=== PATIENT | male | born 1945 | race Caucasian/White ===

== ENCOUNTER 2020-11-11 11:53 | Inpatient (IN) | payer OTHER ==
--- OUTSIDE RECORDS SUMMARY | 2020-11-11 11:57 | XMS REPORT | Continuity of Care Document ---
:1945 Author Organization [facility] t Address [address] [place] [address] Care Team Providers Name Role Phone Latosha MEDRANO Attending Clinician Doctor Unassigned, Name Attending Clinician Unavailable 1, Lab Attending Clinician Unavailable Problems This patient has no known problems. Allergies, Adverse Reactions, Alerts This patient has no known allergies or adverse reactions. Medications This patient has no known medications. Procedures This patient has no known procedures. Encounters Start End Encounter Admission Attending Care Care Encounter Source Date/Time Date/Time Type Type Clinicians Facility Department ID 2019-09-05 2019-09-05 [facility] [id number] 08:41:00 23:59:00 Encounter Jorge Quintero [id number] [place] [id number] [place] [id number] 2019-09-05 2019-09-05 Orders Doctor TRUJILLO [id number] 00:00:00 00:00:00 Only UnassignedRUDDY [id number] [place] [facility] [id number] 2019-05-02 2019-05-02 Care Attendant 1, Adc Lab [facility] [id number] 10:09:47 10:24:47 Visit Ingrid [id number] [place] [id number] [place] [id number] Results This patient has no known results.
--- NOTE | 2020-11-11 13:49 | RAD REPORT ---
EXAM DESCRIPTION: RAD - Chest Single View - 11/11/2020 1:40 pm CLINICAL HISTORY: COPD, lower extremity swelling COMPARISON: None TECHNIQUE: AP portable chest image was obtained 11/11/2020 1:40 pm . FINDINGS: No dense consolidation seen. Baseline examination shows shallow inspiration with granuloma tous type calcifications seen. Interstitial markings are prominent. Heart and vasculature are normal. No measurable pleural effusion and no pneumothorax. No acute bony abnormality seen. No acute aortic findings suspected. IMPRESSION: Baseline examination shows mildly prominent interstitial pattern. Minimal interstitial edema or infiltrate is possible. No significant failure or volume overload.
[2020-11-11 13:58] LABS: Basophils % 0.4 % (0-1.3); Hematocrit 18.7 % (39.6-49.0); Lymphocytes % 67.5 % (15.3-44.8); MPV 8.9 fL (7.6-11.3); RBC Red Blood Cell Count 1.53 M/uL (4.33-5.43)
[2020-11-11 14:13] LABS: Protime INR 1.01
[2020-11-11 14:15] LABS: ALT/SGPT 22 U/L (12-78); AST/SGOT 15 U/L (15-37); Albumin 3.9 g/dL (3.4-5.0); Alkaline Phosphatase 125 U/L (45-117); BUN Blood Urea Nitrogen 14 mg/dL (7-18); Bicarbonate 28 mmol/L (21-32); Bilirubin Direct 0.2 mg/dL (0-0.2); Bilirubin Total 0.6 mg/dL (0.2-1.0); Glucose Level 100 mg/dL (74-106); Magnesium 2.1 mg/dL (1.8-2.4); NT PRO-BNP 425 pg/mL (<450); Protein, Total 7.5 g/dL (6.4-8.2); Sodium Level 141 mmol/L (136-145); Troponin (Emerg Dept Use Only) < 0.02 ng/mL (0.0-0.045)
[2020-11-11 14:27] LABS: Urine Blood Negative (Negative); Urine Glucose Negative (Negative); Urine Protein Negative (Negative)
[2020-11-11 14:32] LABS: Anisocytosis 3+; Blood Morphology Comment NOTED (NOT SEEN); Macrocytosis 3+; Platelet Estimate DECR
[2020-11-11 15:04] LABS: RBC Red Blood Cell Count 1.55 M/uL (4.33-5.43)
--- NOTE | 2020-11-11 15:56 | RAD REPORT ---
EXAM DESCRIPTION: CT - Abdomen Pelvis W Contrast - 11/11/2020 3:21 pm CLINICAL HISTORY: Anemia COMPARISON: No comparisons TECHNIQUE: Biphasic, helical CT imaging of the abdomen and pelvis was performed following 100 ml non -ionic IV contrast. No oral contrast administered. All CT scans are performed using dose optimization technique as appropriate and may include automated exposure control or mA/KV adjustment according to patient size. FINDINGS: Numerous bulla and bleb noted in the lower lung pacheco with fibrotic stranding. Calcified pleural plaquing change noted. No acute lung parenchymal infiltrate or mass. Atelectasis changes are present at the left base. No definitive infiltrates seen. No cardiomegaly or pericardial effusion. Gallbladder is absent. No biliary tree dilatation. Spleen and pancreas show no suspicious findings. L iver size is normal. In segment V right lobe of the liver (series 501, image 22/105) there is a 15 mi llimeter low-density focus with poorly demarcated margins. This area is minimally discernible on arianna rial phase imaging no other focal liver lesions are identifiable. This is nonspecific. An atypical he mangioma is possible. There are no prior studies that can be used for comparison. A more aggressive l iver lesion cannot be excluded. Symmetric renal function is seen with no hydronephrosis or suspicious renal mass. No pyelonephritis o r acute parenchymal process. Small cyst is present lower pole right kidney. No urinary bladder abnorm ality. No adrenal abnormalities. No dilated bowel loops or bowel wall thickening. Moderate-size hiatal hernia is present with approxim ately 20% of the stomach intrathoracic. Moderate stool volume seen in the colon without an acute colo n process identified. Left-sided diverticulosis is present. Appendix is unremarkable. A few mildly pr ominent small bowel loops are present. No free air, free fluid or inflammatory stranding. No mass or bulky lymphadenopathy. A very minimal fat only umbilical hernia seen of no acute significance. No suspicious bony findings. Disc and bony degenerative changes are present. No pathologic bone proce ss. No femoral or iliac vein thrombus identifiable. IMPRESSION: A few mildly prominent small bowel loops are present left mid abdomen probably still in normal range. Moderate stool volume seen throughout the colon. No emergent abdominal or pelvic findin g. Patient does have a 15 millimeter ill-defined low-density area in the right lobe liver. Atypical víctor ngioma is possible. A more aggressive liver lesion is possible. No evidence for a primary malignancy in this study and no history of prior malignancy. Follow-up outpatient liver ultrasound could be performed to try to further characterize this finding.
[2020-11-11 16:02] LABS: Ferritin 478.8 ng/mL (26-388); Transferrin 285 mg/dL (200-360)
[2020-11-11 16:03] LABS: Folic Acid, (Folate) > 20.0 ng/mL (3.1-17.5)
--- NOTE | 2020-11-11 16:19 | ER ---
Nurse's Notes [facility] Name: Devendra Fair Age: 75 yrs Sex: Male : 1945 Arrival Date: 11/11/2020 Time: 11:54 Bed 17 Private MD: Diagnosis: Aplastic anemia, unspecified Presentation: 11/11 12:34 Chief complaint: Patient states: swelling to bilateral lower extremities and shortness ss of breath for the past few weeks. Denies cough/ fever. Coronavirus screen: Client denies travel out of the [place] in the last 14 days. Ebola Screen: Patient denies exposure to infectious person. Patient denies travel to an Ebola-affected area in the 21 days before illness onset. Initial Sepsis Screen: Does the patient meet any 2 criteria? No. Patient's initial sepsis screen is negative. Does the patient have a suspected source of infection? No. Patient's initial sepsis screen is negative. Risk Assessment: Do you want to hurt yourself or someone else? Patient reports no desire to harm self or others. Onset of symptoms is unknown. 12:34 Method Of Arrival: Ambulatory ss 12:34 Acuity: NANCY 3 ss Historical: - Allergies: 12:37 No Known Allergies; ss - Home Meds: 15:01 gabapentin 400 mg oral cap [Active]; baclofen 10 mg Oral tab [Active]; lisinopril 2.5 vg1 mg Oral tab [Active]; hydrochlorothiazide 25 mg Oral tab [Active]; omeprazole 20 mg Oral TbEC [Active]; simvastatin 40 mg Oral tab [Active]; finasteride 5 mg oral tab [Active]; aspirin 81 mg Oral chew [Active]; folic acid 1 mg Oral tab [Active]; cholecalciferol (vitamin D3) oral oral [Active]; cyanocobalamin (vitamin B-12) oral oral [Active]; - PMHx: 12:37 Hypertension; High Cholesterol; Chronic pain; Enlarged prostate; GERD; ss - PSHx: 12:37 TURP; Hernia repair; back sx; Cholecystectomy; ss - Immunization history:: Adult Immunizations up to date. - Social history:: Smoking status: Patient reports the use of cigarette tobacco products, smokes one pack cigarettes per day. Screenin:07 Abuse screen: Denies threats or abuse. Nutritional screening: No deficits noted. vg1 Tuberculosis screening: No symptoms or risk factors identified. Fall Risk No fall in past 12 months (0 pts). No secondary diagnosis (0 pts). IV access (20 points). Ambulatory Aid- None/Bed Rest/Nurse Assist (0 pts). Gait- Normal/Bed Rest/Wheelchair (0 pts) Mental Status- Oriented to own ability (0 pts). Total Sweeney Fall Scale indicates No Risk (0-24 pts). Assessment: 13:03 General: Appears in no apparent distress. comfortable, Behavior is calm, cooperative. vg1 Pain: Complains of pain in lower back, ROSHAN hips, ROSHAN legs Pain currently is 8 out of 10 on a pain scale. Neuro: Level of Consciousness is awake, alert, obeys commands, Oriented to person, place, time, situation. Cardiovascular: Patient's skin is warm and dry. Respiratory: Airway is patent Respiratory effort is even, unlabored, Respiratory pattern is regular, symmetrical, Breath sounds are clear bilaterally. GI: No signs and/or symptoms were reported involving the gastrointestinal system. : No signs and/or symptoms were reported regarding the genitourinary system. EENT: No signs and/or symptoms were reported regarding the EENT system. Derm: Skin is intact, Skin is pink, warm \T\ dry. Musculoskeletal: Swelling ROSHAN lower extremities. 14:28 Reassessment: Patient appears in no apparent distress at this time. No changes from vg1 previously documented assessment. Patient and/or family updated on plan of care and expected duration. Pain level reassessed. Patient is alert, oriented x 3, equal unlabored respirations, skin warm/dry/pink. 15:14 Reassessment: Patient appears in no apparent distress at this time. Patient and/or vg1 family updated on plan of care and expected duration. Pain level reassessed. Patient is alert, oriented x 3, equal unlabored respirations, skin warm/dry/pink. 15:43 Reassessment: Blood transfusion consent form signed by patient. vg1 19:47 Cardiovascular: Rhythm is sinus rhythm. mg2 Vital Signs: 12:34 BP 144 / 59; Pulse 68; Resp 18; Temp 97.8(TE); Pulse Ox 98% on R/A; Weight 92.99 kg; ss Height 6 ft. 2 in. (187.96 cm); Pain 0/10; 13:07 BP 134 / 65; Pulse 65; Resp 16; Pulse Ox 97% on R/A; vg1 14:28 BP 153 / 66; Pulse 60; Resp 14; Pulse Ox 100% ; vg1 15:00 BP 142 / 67; Pulse 65; Resp 14; Pulse Ox 100% on R/A; vg1 17:00 BP 140 / 63; Pulse 68; Resp 16; Temp 98.0; Pulse Ox 100% on R/A; mg2 18:00 BP 133 / 64; Pulse 66; Resp 16; Temp 98.3; Pulse Ox 100% on R/A; mg2 19:37 BP 135 / 61; Pulse 63; Resp 14; Pulse Ox 98% on R/A; mg2 12:34 Body Mass Index 26.32 (92.99 kg, 187.96 cm) ss ED Course: 11:54 Patient arrived in ED. am2 12:35 Triage completed. ss 12:37 Arm band placed on right wrist. ss 12:40 Erin De Luna, MARIAN is Primary Nurse. vg1 13:05 Drew Bender PA is PHCP. jr8 13:05 Zackery Longoria MD is Attending Physician. jr8 13:07 Patient has correct armband on for positive identification. Bed in low position. Call vg1 light in reach. Side rails up X 1. 13:27 EKG done, by ED staff, reviewed by Drew MCELROY. vg1 13:40 XRAY Chest (1 view) In Process Unspecified. EDMS 14:09 Initial lab(s) drawn, by me, sent to lab. Inserted saline lock: 20 gauge in right jp3 wrist, using aseptic technique. Blood collected. 14:27 Urine collected: clean catch specimen, clear. vg1 14:36 Initial lab(s) drawn, by me, sent to lab. vg1 15:[address] via stretcher. vg1 15:21 CT Abd/Pelvis - IV Contrast Only In Process Unspecified. EDMS 16:17 Prakash Smith DO is Hospitalizing Provider. jr8 19:46 No provider procedures requiring assistance completed. Patient admitted, IV remains in mg2 place. Administered Medications: No medications were administered Outcome: 16:18 Decision to Hospitalize by Provider. jr8 19:46 Admitted to Tele accompanied by tech, via stretcher, room 230, with chart, Report mg2 called to MARIAN Tovar 19:46 Condition: stable 19:46 Instructed on the need for admit. 20:19 Patient left the ED. mg2 Signatures: Dispatcher [employer] Candi Sanchez RN RN ss Drew Bender PA PA jr8 Nilam Almeida am2 Santiago Carroll RN RN mg2 Bashir Ortega jp3 Erin De Luna RN RN vg1
--- NOTE | 2020-11-11 16:19 | EDPHYS ---
Physician Documentation [facility] Name: Devendra Fair Age: 75 yrs Sex: Male : 1945 Arrival Date: 11/11/2020 Time: 11:54 Bed 17 Private MD: ED Physician Zackery Longoria HPI: 11/11 13:16 This 75 yrs old Male presents to ER via Ambulatory with complaints of Leg jr8 Swelling, Shortness Of Breath. 13:16 Onset: The symptoms/episode began/occurred 2 week(s) ago. Patient presents for BLE jr8 swelling x 2 weeks. He denies CP, or increased SOB, or any new onset pain. He reports COPD HX with 1 PPD smoking but denies O2 use at home. . Historical: - Allergies: 12:37 No Known Allergies; ss - Home Meds: 15:01 gabapentin 400 mg oral cap [Active]; baclofen 10 mg Oral tab [Active]; lisinopril 2.5 vg1 mg Oral tab [Active]; hydrochlorothiazide 25 mg Oral tab [Active]; omeprazole 20 mg Oral TbEC [Active]; simvastatin 40 mg Oral tab [Active]; finasteride 5 mg oral tab [Active]; aspirin 81 mg Oral chew [Active]; folic acid 1 mg Oral tab [Active]; cholecalciferol (vitamin D3) oral oral [Active]; cyanocobalamin (vitamin B-12) oral oral [Active]; - PMHx: 12:37 Hypertension; High Cholesterol; Chronic pain; Enlarged prostate; GERD; ss - PSHx: 12:37 TURP; Hernia repair; back sx; Cholecystectomy; ss - Immunization history:: Adult Immunizations up to date. - Social history:: Smoking status: Patient reports the use of cigarette tobacco products, smokes one pack cigarettes per day. ROS: 13:19 Cardiovascular: Negative for chest pain, palpitations, and edema, Abdomen/GI: Negative jr8 for abdominal pain, nausea, vomiting, diarrhea, and constipation, Neuro: Negative for headache, weakness, numbness, tingling, and seizure. 13:19 MS/extremity: Positive for swelling, of the right leg and left leg. 13:19 Skin: Negative for He reports skin color as normal for him. 13:20 Respiratory: Positive for shortness of breath, on exertion. reports normal for him, no jr8 new changes. 13:20 All other systems are negative. Exam: 13:21 Chest/axilla: Normal chest wall appearance and motion. Nontender with no deformity. jr8 No lesions are appreciated. Abdomen/GI: Soft, non-tender, with normal bowel sounds. No distension or tympany. No guarding or rebound. No evidence of tenderness throughout. Back: No spinal tenderness. No costovertebral tenderness. Full range of motion. Neuro: Awake and alert, GCS 15, oriented to person, place, time, and situation. Cranial nerves II-XII grossly intact. Motor strength 5/5 in all extremities. Sensory grossly intact. Cerebellar exam normal. Normal gait. 13:21 MS/ Extremity: Pulses equal, no cyanosis. Neurovascular intact. Full, normal range of motion. 13:21 Eyes: Periorbital structures: minor edema present, Sclera: icterus, is present, minor. 13:21 Cardiovascular: Rate: normal, actual rate is 65 bpm, Heart sounds: normal, Edema: 3+ edema to level of left lower thigh, left knee, left midcalf, left ankle, left foot, right lower thigh, right knee, right midcalf, right ankle and right foot, pedal edema, that is moderate, ankle edema, that is moderate. 13:21 Respiratory: the patient does not display signs of respiratory distress, Respirations: normal, Breath sounds: decreased breath sounds, that are mild, are scattered. 13:21 Abdomen/GI: Inspection: abdomen appears normal, Bowel sounds: normal, Palpation: abdomen is soft and non-tender, Liver: no appreciated palpable abnormalities. Vital Signs: 12:34 BP 144 / 59; Pulse 68; Resp 18; Temp 97.8(TE); Pulse Ox 98% on R/A; Weight 92.99 kg; ss Height 6 ft. 2 in. (187.96 cm); Pain 0/10; 13:07 BP 134 / 65; Pulse 65; Resp 16; Pulse Ox 97% on R/A; vg1 14:28 BP 153 / 66; Pulse 60; Resp 14; Pulse Ox 100% ; vg1 15:00 BP 142 / 67; Pulse 65; Resp 14; Pulse Ox 100% on R/A; vg1 17:00 BP 140 / 63; Pulse 68; Resp 16; Temp 98.0; Pulse Ox 100% on R/A; mg2 18:00 BP 133 / 64; Pulse 66; Resp 16; Temp 98.3; Pulse Ox 100% on R/A; mg2 19:37 BP 135 / 61; Pulse 63; Resp 14; Pulse Ox 98% on R/A; mg2 12:34 Body Mass Index 26.32 (92.99 kg, 187.96 cm) ss MDM: 13:05 Patient medically screened. [facility] 16:16 Data reviewed: vital signs, nurses notes, lab test result(s), EKG, radiologic studies, [facility] plain films. Data interpreted: Pulse oximetry: on room air is 100 %. Interpretation: normal. Counseling: I had a detailed discussion with the patient and/or guardian regarding: the historical points, exam findings, and any diagnostic results supporting the discharge/admit diagnosis, lab results, radiology results, the need for further work-up and treatment in the hospital. ED course: Consulted Dr. Napier on hematologic case. 11/11 13:15 Order name: Basic Metabolic Panel; Complete Time: 14:18 [facility] 11/11 13:15 Order name: CBC with Diff; Complete Time: 14:39 [facility] 11/11 13:15 Order name: LFT's; Complete Time: 14:18 [facility] 11/11 13:16 Order name: Magnesium; Complete Time: 14:18 [facility] 11/11 13:16 Order name: NT PRO-BNP; Complete Time: 14:18 [facility] 11/11 13:16 Order name: PT-INR; Complete Time: 14:18 [facility] 11/11 13:16 Order name: Troponin (emerg Dept Use Only); Complete Time: 14:18 [facility] 11/11 14:14 Order name: Manual Differential; Complete Time: 14:39 [facility] 11/11 14:27 Order name: Urine Dipstick-Ancillary [facility] 11/11 14:29 Order name: PRBC [facility] 11/11 14:29 Order name: Packed RBC Leukored [facility] 11/11 14:30 Order name: ABO/RH typing [facility] 11/11 14:30 Order name: Antibody Screen [facility] 11/11 13:16 Order name: XRAY Chest (1 view); Complete Time: 13:51 [facility] 11/11 14:40 Order name: Iron Level; Complete Time: 16:10 [facility] 11/11 14:40 Order name: TIBC; Complete Time: 16:10 [facility] 11/11 14:40 Order name: B12; Complete Time: 16:10 [facility] 11/11 14:40 Order name: Folic Acid,Serum (folate); Complete Time: 16:10 [facility] 11/11 14:44 Order name: LDH [facility] 11/11 14:44 Order name: Lactic Dehydrogenase; Complete Time: 15:45 [facility] 11/11 14:45 Order name: Retic Count; Complete Time: 15:09 [facility] 11/11 14:53 Order name: Add On-Lab bd 11/11 14:58 Order name: Direct Antiglobulin Test [facility] 11/11 15:03 Order name: CT Abd/Pelvis - IV Contrast Only; Complete Time: 16:10 [facility] 11/11 15:32 Order name: ABO/RH no charge; Complete Time: 15:34 [facility] 11/11 17:17 Order name: SARS-COV-2 RT PCR; Complete Time: 17:19 [facility] 11/11 17:56 Order name: C-Reactive Protein; Complete Time: 17:59 [facility] 11/11 13:16 Order name: EKG; Complete Time: 13:16 [facility] 11/11 13:16 Order name: Cardiac monitoring; Complete Time: 13:26 [facility] 11/11 13:16 Order name: EKG - Nurse/Tech; Complete Time: 13:26 [facility] 11/11 13:16 Order name: IV Saline Lock; Complete Time: 13:50 [facility] 11/11 13:16 Order name: Labs collected and sent; Complete Time: 13:50 [facility] 11/11 13:16 Order name: O2 Per Protocol; Complete Time: 13:18 [facility] 11/11 13:16 Order name: O2 Sat Monitoring; Complete Time: 13:18 [facility] 11/11 13:26 Order name: Urine Dipstick-Ancillary (obtain specimen); Complete Time: 13:50 [facility] Administered Medications: No medications were administered Disposition: 11/12 07:19 Co-signature as Attending Physician, Zackery Longoria MD I agree with the assessment and siddhartha plan of care. Disposition: 11/11/20 16:18 Hospitalization ordered by Prakash mSith for Observation. Preliminary diagnosis is Aplastic anemia, unspecified. - Bed requested for Telemetry/MedSurg (observation). - Status is Observation. mg2 - Condition is Stable. - Problem is new. - Symptoms are unchanged. Signatures: Dispatcher [employer] EDMS PazAmyTriceZackery Brewer MD MD cha Smirch, Shelby, RN RN Drew Warren PA PA jr8 Santiago Carroll, MARIAN RN mg2 Erin De Luna, RN RN vg1 Corrections: (The following items were deleted from the chart) 11/11 14:41 14:40 FERRITIN+C.LAB.BRZ ordered. EDMS EDMS 14:45 14:20 TYPE AND SCREEN+BB.LAB.BRZ ordered. EDMS EDMS 16:22 15:03 CORONAVIRUS+MR.LAB.BRZ ordered. EDMS EDMS 18:00 16:18 Hospitalization Ordered by Prakash Smith DO for Observation. Preliminary bd diagnosis is Aplastic anemia, unspecified. Bed requested for Telemetry/MedSurg (observation). Status is Observation. Condition is Stable. Problem is new. Symptoms are unchanged. jr8 20:19 18:00 11/11/2020 16:18 Hospitalization Ordered by Prakash Smith DO for Observation. mg2 Preliminary diagnosis is Aplastic anemia, unspecified. Bed requested for Telemetry/MedSurg (observation). Status is Observation. Condition is Stable. Problem is new. Symptoms are unchanged. bd
[2020-11-11] MEDS ORDERED: NA CHLORIDE 0.9% 250 ML ONE ×2 (16:49→22:06)
--- NOTE | 2020-11-11 16:59 | P.HP ---
Certification for Inpatient Patient admitted to: Observation With expected LOS: <2 Midnights Patient will require the following post-hospital care: None Practitioner: I am a practitioner with admitting privileges, knowledge of patient current condition, hospital course, and medical plan of care. Services: Services provided to patient in accordance with Admission requirements found in Title 42 Section 412.3 of the Code of Federal Regulations Patient History Date of Service: 11/11/20 Primary Care Provider: [facility] Reason for admission: Bilateral lower extremity edema History of Present Illness: 75-year-old male with history of hypertension, chronic pain, GERD, hyperlipidemia, and BPH. Patient presented with 2-week history of bilateral lower extremity edema. Patient also reported some jaundice. Patient has not had this type of symptoms before. He denied any significant chest pain, shortness of breath. Denied any fever, chills. No abdominal pain, nausea or vomiting noted. Patient smokes about a pack per day. Patient was seen by the [place] [facility]. He was told that he was anemic. He required vitamin B12, folic acid and vitamin D3. Patient came to the ER for further evaluation. In the ER patient was evaluated. Patient was found to be pancytopenic with white count 1.5, hemoglobin 6.2. Platelet count 86. Absolute neutrophil 0.5. Sodium 141, potassium 4.0. Glucose 100. GFR greater than 90. LDH unremarkable. LFTs unremarkable. Iron 176, TIBC 399. Transferrin 285. Percent transferrin 44% absolute neutrophil count 0.5. CT scan showed a 15 mm right lobe liver mass. Moderate stool noted. Chest x-ray unremarkable. Urinalysis unremarkable. Patient had significant edema to the lower extremities. Venous Doppler pending. Patient admitted for further evaluation and treatment. Home medications list reviewed: Yes - Past Medical/Surgical History Diabetic: No -: Hypertension -: Hyperlipidemia -: BPH -: Chronic pain -: Chronic anemia Past Surgical History: Reviewed- Non-Contributory Psychosocial/ Personal History: Patient is a - Family History Family History: Reviewed- Non-Contributory - Social History Smoking Status: Heavy Tobacco smoker (>10 cigarettes/day) Counseled patient to stop smoking for: less than 10 minutes Smoking therapy provided: Yes Patient receptive to therapy: Yes Alcohol use: No CD- Drugs: No Caffeine use: No Place of Residence: Home Review of Systems General: Weakness, As per HPI Eyes: Unremarkable Respiratory: Unremarkable Cardiovascular: Edema, As per HPI Gastrointestinal: Unremarkable Genitourinary: Unremarkable Musculoskeletal: Pedal edema, As per HPI Integumentary: Jaundice, As per HPI Neurological: Unremarkable Lymphatics: Unremarkable Physical Examination - Physical Exam General: Alert, In no apparent distress, Oriented x3, Cooperative HEENT: Atraumatic, PERRLA, Mucous membr. moist/pink, Scleral icterus Neck: Supple Respiratory: Clear to auscultation bilaterally, Normal air movement Cardiovascular: Normal pulses, Regular rate/rhythm Gastrointestinal: Normal bowel sounds, Soft and benign, Non-distended, No ascites, No tenderness, No masses, No rebound, No guarding Musculoskeletal: No tenderness, No warmth Integumentary: Tenderness/swelling (2+ pitting edema to the lower extremities bilateral) Neurological: Normal speech, Normal strength at 5/5 x4 extr, Normal tone, Normal affect - Studies Laboratory Data (last 24 hrs) 11/11/20 13:49: PT 11.6, INR 1.01 11/11/20 13:49: WBC 1.50 L*, Hgb 6.2 L*, Hct 18.7 L*, Plt Count 86 L 11/11/20 13:49: Sodium 141, Potassium 4.0, BUN 14, Creatinine 0.77, Glucose 100, Magnesium 2.1, Total Bilirubin 0.6, AST 15, ALT 22, Alkaline Phosphatase 125 H Assessment and Plan - Plan Impression: Bilateral lower extremity edema, jaundice with pancytopenia etiology unknown 15 mm right lobe liver mass etiology unknown Hypertension Hyperlipidemia BPH GERD Tobacco abuse Chronic pain Plan: Bilateral lower extremity edema, jaundice with pancytopenia etiology unknown: Patient will be admitted for further evaluation and treatment. Patient will be given 2 units of packed red blood cells. Maintain hemoglobin above 7.0. Recheck CBC and monitor closely. Will obtain venous Doppler of the lower extremity to rule out DVT. Due to his liver mass we will check a CT scan of the chest to further evaluate especially in light of his tobacco abuse. Echocardiogram will be performed to rule out CHF. Will discuss with hematology about etiology of his pancytopenia. No evidence of GI bleed at this time. Patient will require GI work-up to include EGD and colonoscopy as an outpatient. Patient will likely require hematology evaluation including bone marrow biopsy. We will send peripheral smear. Provide DVT prophylaxis. Anticipate work-up to be completed tomorrow. Possible discharge as early as tomorrow. 15 mm right lobe liver mass etiology unknown: We will check liver ultrasound. We will send for hepatitis panel. Hypertension: Restart lisinopril. Hold hydrochlorothiazide. Will monitor closely and adjust medication. Hyperlipidemia: Restart Zocor. BPH: Restart finasteride. GERD: Restart Protonix. Tobacco abuse: We will provide nicotine patch. Cessation education provided. Chronic pain: We will provide medication for pain. Hold gabapentin due to side effect of edema. Hold baclofen. Discharge Plan: Home Plan to discharge in: 48 Hours - Advance Directives Does patient have a Living Will: No Does patient have a Durable POA for Healthcare: No - Code Status/Comfort Care Code Status Assessed: Yes (Full code) Time Spent Managing Pts Care (In Minutes): 55
[2020-11-11] MEDS ORDERED: DIPHENHYDRAMINE 50 MG/ML VIAL ONE (17:02)
[2020-11-11] MEDS ORDERED: ACETAMINOPHEN 325 MG TABLET ONE (17:02)
[2020-11-11] MEDS ORDERED: ACETAMINOPHEN 500 MG TAB PO PRN (19:56)
[2020-11-11] MEDS: FUROSEMIDE 20 MG/ 2ML VIAL IV SCH (19:56)
[2020-11-11] MEDS ORDERED: ONDANSETRON 4 MG/2 ML VIAL IV PRN (19:56)
[2020-11-11] MEDS: HEPARIN 5000 UNIT/ML 1 ML VIAL SQ SCH (21:00)
[2020-11-11] MEDS ORDERED: ATORVASTATIN 20 MG TAB PO SCH (21:00)
[2020-11-11] MEDS ORDERED: FINASTERIDE 5 MG TAB PO SCH (21:00)
--- NOTE | 2020-11-11 21:19 | RAD REPORT ---
EXAM DESCRIPTION: CT - Thorax Wo Con - 11/11/2020 8:36 pm CLINICAL HISTORY: Tobacco abuse, Pancytopenia, Liver mass COMPARISON: Abdomen Pelvis W Contrast dated 11/11/2020 TECHNIQUE: Axial 5 mm thick images of the chest were obtained without IV contrast. All CT scans are performed using dose optimization technique as appropriate and may include automated exposure control or mA/KV adjustment according to patient size. FINDINGS: Numerous variably sized bullae and blebs noted along with subpleural scarring changes. Pat ient has calcified and noncalcified pleural plaquing change. This is slightly more prominent at the l eft base diaphragmatic pleura. No one area of pleural changes clearly masslike to suspect mesotheliom a or aggressive pleural process. No suspicious mass lesion within the lung parenchyma. There is no ac courtney infiltrates seen. No pneumothorax. No abnormal mediastinal or hilar masses or lymphadenopathy seen. No gross aortic or pulmonary artery finding suspected. Assessment is limited in the absence of IV contrast. No chest wall mass or abnormal axillary lymphadenopathy. Moderate-sized hiatal hernia present. IMPRESSION: Patient has calcified and noncalcified pleural plaquing changes throughout each hemithor ax ; however, no one area shows greater masslike appearance to suspect mesothelioma. No suspicious mass of the lung parenchyma and no abnormal mediastinal or hilar mass. Fibrotic lung changes are present along with numerous bullae and blebs.
[2020-11-11 21:35] VITALS: BMI 26.2
[2020-11-11] MEDS ORDERED: ACETAMINOPHEN 325 MG TABLET PO ONE (21:41)
[2020-11-11] MEDS ORDERED: DIPHENHYDRAMINE 50 MG/ML VIAL IV ONE (21:42)
[2020-11-12] MEDS: FUROSEMIDE 20 MG/ 2ML VIAL IV SCH ×2 (01:22→08:57)
[2020-11-12 01:47] LABS: Urine Appearance CLEAR (Clear); Urine Bilirubin NEGATIVE (Negative); Urine Blood NEGATIVE (Negative); Urine Color YELLOW (Yellow); Urine Glucose NEGATIVE (Negative); Urine Protein NEGATIVE (Negative); Urine pH 6.5 (5.0-7.0)
[2020-11-12 02:30] LABS: Urine Microscopic Reflex ORDER UMIC
[2020-11-12 03:37] LABS: Absolute Lymphocytes (CBC) 0.6 K/uL (0.7-4.9); Basophils % 0.5 % (0-1.3); Lymphocytes % 61.1 % (15.3-44.8); MPV 8.5 fL (7.6-11.3); RBC Red Blood Cell Count 1.81 M/uL (4.33-5.43)
[2020-11-12 03:40] LABS: ALT/SGPT 17 U/L (12-78); AST/SGOT 12 U/L (15-37); Albumin 2.9 g/dL (3.4-5.0); Alkaline Phosphatase 94 U/L (45-117); BUN Blood Urea Nitrogen 13 mg/dL (7-18); Bicarbonate 30 mmol/L (21-32); Bilirubin Total 0.7 mg/dL (0.2-1.0); Glucose Level 100 mg/dL (74-106); Magnesium 1.8 mg/dL (1.8-2.4); Potassium 3.3 mmol/L (3.5-5.1); Protein, Total 5.7 g/dL (6.4-8.2); Sodium Level 141 mmol/L (136-145)
[2020-11-12 03:56] LABS: Hematocrit 19.5 % (39.6-49.0)
[2020-11-12 04:03] LABS: Urine Bacteria <20 /HPF (NONE SEEN); Urine RBC <5 /HPF (NONE SEEN); Urine Urothelial Cells <5 /HPF (NONE SEEN)
[2020-11-12] MEDS ORDERED: PANTOPRAZOLE 40MG TABLET PO SCH (06:30)
--- NOTE | 2020-11-12 06:53 | EKG ---
Test Date: 2020-11-11 Test Time: 13:23:51 Radiology Transcriptionist: JAIDEN MEASUREMENT RESULTS: Intervals: Rate: 62 TN: 176 QRSD: 100 QT: 418 QTc: 424 [place]: P: 55 TN: 176 QRS: 3 T: 35 INTERPRETIVE STATEMENTS: Normal sinus rhythm Normal ECG No previous ECG available for comparison Electronically Signed On 11-12-20 06:51:30 CDT by Roderick Prieto
--- NOTE | 2020-11-12 07:27 | RAD REPORT ---
EXAM DESCRIPTION: USExtrem Venous W Compress Bil11/11/2020 9:15 pm CLINICAL HISTORY: Leg swelling COMPARISON: none FINDINGS: The common femoral, superficial femoral, popliteal and posterior tibial veins bilaterally are compressible and demonstrate augmentation. Doppler demonstrates good flow. IMPRESSION: No evidence of deep venous thrombosis involving either lower extremity.
--- NOTE | 2020-11-12 07:31 | RAD REPORT ---
EXAM DESCRIPTION: US - Liver Only - 11/11/2020 9:15 pm CLINICAL HISTORY: Liver mass COMPARISON: November 11, 2020 cat scan FINDINGS: Two echogenic masses are present within liver. The largest lies within the anterior segmen t right lobe measuring 2.2 centimeters. . Hepatopetal flow. The spleen measures 10 centimeters IMPRESSION: Two echogenic hepatic masses. These are nonspecific but may represent hemangiomas. Follo w-up ultrasound in 3 months recommended Unremarkable ultrasound spleen
[2020-11-12] MEDS ORDERED: lisinopriL 5 MG TAB PO SCH (09:00)
[2020-11-12] MEDS: HEPARIN 5000 UNIT/ML 1 ML VIAL SQ SCH (09:00)
[2020-11-12] MEDS ORDERED: CYANOCOBALAMIN 1,000 MCG TAB PO SCH (09:00)
[2020-11-12] MEDS ORDERED: THIAMINE HCL 100 MG TABLET PO SCH (09:00)
[2020-11-12] MEDS ORDERED: NICOTINE 21 MG/PAT TD SCH (09:00)
[2020-11-12] MEDS ORDERED: FOLIC ACID 1 MG TABLET PO SCH (09:00)
[2020-11-12] MEDS ORDERED: NA CHLORIDE 0.9% 250 ML ONE (09:54)
[2020-11-12 13:52] VITALS: BP 124/63; TEMP 99.5
--- NOTE | 2020-11-12 14:11 | ECHO ---
HEIGHT: 6 ft 2 in WEIGHT: 204 lb 0 oz DATE OF STUDY: 11/12/[address]: Prakash Smith DO 2-DIMENSIONAL: YES M.MODE: YES DOPPLER: YES COLOR FLOW: YES TDS: PORTABLE: DEFINITY: BUBBLE STUDY: DIAGNOSIS: BLE EDEMA, PANCYTIOENIA, HYPERTENSION, LIVER MASS, TABACCO ABUSE CARDIAC HISTORY: CATHERIZATION: SURGERY: PROSTHETIC VALVE: PACEMAKER: MEASUREMENTS (cm) DIASTOLIC (NORMALS) SYSTOLIC (NORMALS) IVSd 1.2 (0.6-1.2) LA Diam 4.1 (1.9-4.0) LVEF 67% LVIDd 3.4 (3.5-5.7) LVIDs 2.1 (2.0-3.5) %FS 36% LVPWd 1.3 (0.6-1.2) Ao Diam 2.9 (2.0-3.7) 2 DIMENSIONAL ASSESSMENT: RIGHT ATRIUM: NORMAL LEFT ATRIUM: NORMAL RIGHT VENTRICLE: NORMAL LEFT VENTRICLE: NORMAL TRICUSPID VALVE: NORMAL MITRAL VALVE: NORMAL PULMONIC VALVE: NORMAL AORTIC VALVE: NORMAL PERICARDIAL EFFUSION: NONE AORTIC ROOT: NORMAL LEFT VENTRICULAR WALL MOTION: NORMAL DOPPLER/COLOR FLOW: SEE BELOW COMMENTS: NORMAL LEFT VENTRICULAR EJECTION FRACTION 55-60%. NORMAL WALL MOTION. TECHNOLOGIST: KESHA CARNES
--- NOTE | 2020-11-12 14:35 | P.PN ---
Subjective Date of Service: 11/12/20 Primary Care Provider: [facility] Chief Complaint: Bilateral lower extremity edema Subjective: Improving (Edema to the lower extremities improved.) Physical Examination - Vital Signs Temperature: 99.5 F Blood Pressure: 124/63 Pulse: 87 Respirations: 16 Pulse Ox (%): 95 - Studies Laboratory Data (last 24 hrs) 11/12/20 02:47: Sodium 141, Potassium 3.3 L, BUN 13, Creatinine 0.67, Glucose 100, Magnesium 1.8, Total Bilirubin 0.7, AST 12 L, ALT 17, Alkaline Phosphatase 94 11/12/20 02:47: WBC 1.00 L* D, Hgb 6.8 L*, Hct 19.5 L*, Plt Count 60 L D 11/12/20 02:30: Hgb Cancelled, Hct Cancelled Microbiology Data (last 24 hrs): 11/11/20 21:55 Blood - Blood Anaerobic Blood Culture - Final 11/11/20 21:46 Blood - Blood Anaerobic Blood Culture - Final Assessment & Plan Discharge Plan: Home Plan to discharge in: 24 Hours Physician Review Additional Text: Physical exam: Vital signs stable. Heart: Regular rate and rhythm Lungs: Clear to auscultation Abdomen: Soft nontender nondistended Extremities: Edema to the lower extremities significantly improved. Skin: Jaundice appears improved. Impression: Bilateral lower extremity edema, jaundice with pancytopenia etiology unknown 15 mm right lobe liver mass etiology unknown Hypertension Hyperlipidemia BPH GERD Tobacco abuse Chronic pain History of asbestosis Plan: Bilateral lower extremity edema, jaundice with pancytopenia etiology unknown: Patient given 2 units of packed red blood cells. Blood count still less than 7.0. 3 units of blood given. Recheck hemoglobin after. Patient still with reyes cytopenia. Case discussed with hematology. Await recommendation. Liver ultrasound shows nonspecific liver masses but benign. Echocardiogram unremarkable. Chest CT shows calcified and noncalcified pleural plaque changes. No suspicious mass noted. Fibrotic lung changes noted. Peripheral smear reviewed. Cytology sent out for further evaluation. Patient reports having EGD and colonoscopy in the past. This was likely done within the past year. He reports unremarkable. Patient denies any rectal bleeding. Suspect bone marrow abnormality, possible leukemia versus MDS. Await recommendations from hematology. Will need to monitor CBC closely. Anticipate improvement over the next 24 hours. 15 mm right lobe liver mass etiology unknown: Ultrasound shows nonspecific changes. Hepatitis panel pending. HIV pending. Hypertension: Continue lisinopril. Hydrochlorothiazide held. Hyperlipidemia: Continue Zocor. BPH: Continue finasteride. GERD: Continue Protonix. Tobacco abuse: We will provide nicotine patch. Cessation education provided. Chronic pain: We will provide medication for pain. Hold gabapentin due to side effect of edema. Hold baclofen. History of asbestosis: History reviewed. Time Spent Managing Pts Care (In Minutes): 55
[2020-11-12 14:51] VITALS: O2SAT 95
--- NOTE | 2020-11-12 16:24 | P.DS ---
Admission Date: 11/12/20 Discharge Date: 11/12/20 Primary Care Provider: [facility] Disposition: ROUTINE DISCHARGE Discharge Condition: GOOD Reason for Admission: Bilateral lower extremity edema Consultations: Hematology-Dr. Armendariz Procedures: COVID: Negative CT scan: FINDINGS: Numerous bulla and bleb noted in the lower lung pacheco with fibrotic stranding. Calcified pleural plaquing change noted. No acute lung parenchymal infiltrate or mass. Atelectasis changes are present at the left base. No definitive infiltrates seen. No cardiomegaly or pericardial effusion. Gallbladder is absent. No biliary tree dilatation. Spleen and pancreas show no suspicious findings. Liver size is normal. In segment V right lobe of the liver (series 501, image 22/105) there is a 15 millimeter low-density focus with poorly demarcated margins. This area is minimally discernible on arterial phase imaging no other focal liver lesions are identifiable. This is nonspecific. An atypical hemangioma is possible. There are no prior studies that can be used for comparison. A more aggressive liver lesion cannot be excluded. Symmetric renal function is seen with no hydronephrosis or suspicious renal mass. No pyelonephritis or acute parenchymal process. Small cyst is present lower pole right kidney. No urinary bladder abnormality. No adrenal abnormalities. No dilated bowel loops or bowel wall thickening. Moderate-size hiatal hernia is present with approximately 20% of the stomach intrathoracic. Moderate stool volume seen in the colon without an acute colon process identified. Left-sided diverticulosis is present. Appendix is unremarkable. A few mildly prominent small bowel loops are present. No free air, free fluid or inflammatory stranding. No mass or bulky lymphadenopathy. A very minimal fat only umbilical hernia seen of no acute significance. No suspicious bony findings. Disc and bony degenerative changes are present. No pathologic bone process. No femoral or iliac vein thrombus identifiable. IMPRESSION: A few mildly prominent small bowel loops are present left mid abdomen probably still in normal range. Moderate stool volume seen throughout the colon. No emergent abdominal or pelvic finding. Patient does have a 15 millimeter ill-defined low-density area in the right lobe liver. Atypical hemangioma is possible. A more aggressive liver lesion is possible. No evidence for a primary malignancy in this study and no history of prior malignancy. Follow-up outpatient liver ultrasound could be performed to try to further characterize this finding. CT Chest: FINDINGS: Numerous variably sized bullae and blebs noted along with subpleural scarring changes. Patient has calcified and noncalcified pleural plaquing change. This is slightly more prominent at the left base diaphragmatic pleura. No one area of pleural changes clearly masslike to suspect mesothelioma or aggressive pleural process. No suspicious mass lesion within the lung parenchyma. There is no acute infiltrates seen. No pneumothorax. No abnormal mediastinal or hilar masses or lymphadenopathy seen. No gross aortic or pulmonary artery finding suspected. Assessment is limited in the absence of IV contrast. No chest wall mass or abnormal axillary lymphadenopathy. Moderate-sized hiatal hernia present. IMPRESSION: Patient has calcified and noncalcified pleural plaquing changes throughout each hemithorax ; however, no one area shows greater masslike appearance to suspect mesothelioma. No suspicious mass of the lung parenchyma and no abnormal mediastinal or hilar mass. Fibrotic lung changes are present along with numerous bullae and blebs. Liver US: COMPARISON: November 11, 2020 cat scan FINDINGS: Two echogenic masses are present within liver. The largest lies within the anterior segment right lobe measuring 2.2 centimeters. . Hepatopetal flow. The spleen measures 10 centimeters IMPRESSION: Two echogenic hepatic masses. These are nonspecific but may represent hemangiomas. Follow-up ultrasound in 3 months recommended Unremarkable ultrasound spleen Venous doppler: COMPARISON: none FINDINGS: The common femoral, superficial femoral, popliteal and posterior tibial veins bilaterally are compressible and demonstrate augmentation. Doppler demonstrates good flow. IMPRESSION: No evidence of deep venous thrombosis involving either lower extremity. ECHO: MEASUREMENTS (cm) DIASTOLIC (NORMALS) SYSTOLIC (NORMALS) IVSd 1.2 (0.6-1.2) LA Diam 4.1 (1.9-4.0) LVEF 67% LVIDd 3.4 (3.5-5.7) LVIDs 2.1 (2.0-3.5) %FS 36% LVPWd 1.3 (0.6-1.2) Ao Diam 2.9 (2.0-3.7) 2 DIMENSIONAL ASSESSMENT: RIGHT ATRIUM: NORMAL LEFT ATRIUM: NORMAL RIGHT VENTRICLE: NORMAL LEFT VENTRICLE: NORMAL TRICUSPID VALVE: NORMAL MITRAL VALVE: NORMAL PULMONIC VALVE: NORMAL AORTIC VALVE: NORMAL PERICARDIAL EFFUSION: NONE AORTIC ROOT: NORMAL LEFT VENTRICULAR WALL MOTION: NORMAL DOPPLER/COLOR FLOW: SEE BELOW COMMENTS: NORMAL LEFT VENTRICULAR EJECTION FRACTION 55-60%. NORMAL WALL MO TION. Smear Pathology: DIAGNOSIS Peripheral blood smear: - Leukopenia with absolute neutropenia - Macrocytic anemia with anisopoikilocytosis - Thrombocytopenia - See Comment CPT 72393 Dictated by: Leticia Ellis MD Peripheral blood is sent for flow cytometry at the request of Dr. Armendariz and an addendum report will follow. Medical Problem List: Bilateral lower extremity edema, jaundice with pancytopenia etiology unknown possible myelodysplastic syndrome versus leukemia 15 mm right lobe liver mass likely hemangioma Hypertension Hyperlipidemia BPH GERD Tobacco abuse Chronic pain History of asbestosis Brief History of Present Illness: 75-year-old male with history of hypertension, chronic pain, GERD, hyperlipidemia, and BPH. Patient presented with 2-week history of bilateral lower extremity edema. Patient also reported some jaundice. Patient has not had this type of symptoms before. He denied any significant chest pain, shortness of breath. Denied any fever, chills. No abdominal pain, nausea or vomiting noted. Patient smokes about a pack per day. [facility]. He was told that he was anemic. He required vitamin B12, folic acid and vitamin D3. Patient came to the ER for further evaluation. In the ER patient was evaluated. Patient was found to be pancytopenic with white count 1.5, hemoglobin 6.2. Platelet count 86. Absolute neutrophil 0.5. Sodium 141, potassium 4.0. Glucose 100. GFR greater than 90. LDH unremarkable. LFTs unremarkable. Iron 176, TIBC 399. Transferrin 285. Percent transferrin 44% absolute neutrophil count 0.5. CT scan showed a 15 mm right lobe liver mass. Moderate stool noted. Chest x-ray unremarkable. Urinalysis unremarkable. Patient had significant edema to the lower extremities. Venous Doppler pending. Patient admitted for further evaluation and treatment. Hospital Course: Patient presented with bilateral lower extremity edema, jaundice. Patient found to have pancytopenia. Patient was admitted for further evaluation. Venous Doppler negative. CT scan of the abdomen showed ill-defined area to the right liver. Liver ultrasound showed 2 masses that were nonspecific likely hemangioma. It was recommended that repeat ultrasound be done in 3 to 6 months to monitor stability. CT chest showed calcified and noncalcified pleural plaque changes. No suspicious mass identified. Fibrotic changes noted. Patient repor ts history of asbestosis. Patient received IV diuretic therapy with improvement of his edema. Patient required transfusion of 3 units of blood. Patient was seen and evaluated by hematology. Hematology suspects possible bone marrow dysfunction. Myelodysplastic syndrome versus leukemia needs to be considered. Peripheral smear performed. Cytology sent out for analysis. Patient desired to go home. Patient stable for discharge. Plan of care addressed in detail with the patient. At discharge the patient will go home on Levaquin 500 mg daily, acyclovir 400 mg daily, and Diflucan 100 mg daily for 7 days. This is due to his neutropenia. The patient will [facility]. His PCP will need to determine if patient requires inpatient admission through the [facility] for bone marrow biopsy and further evaluation. Otherwise PCP can make a referral so that the patient can follow-up with hematology locally for bone marrow biopsy on Monday. During this time patient will need to monitor for any fever, chills. If patient develops any fever or chills he is to return to the hospital for further evaluation. If patient requires hospitalization patient will require [facility] hospitalization to continue work-up and possible treatment. Especially if this is leukemia. Education on MDS, leukemia and bone marrow biopsy provided. Plan of care addressed with patient and daughter. Patient with hypertension. Medications have been adjusted. At discharge patient will no longer take hydrochlorothiazide. Due to his edema the patient will continue with lisinopril 2.5 mg daily and Lasix 20 mg daily. Recommend to monitor his weight daily. If swelling to his legs have improved he can hold his Lasix. Further adjustment in medication can be done by his PCP. Patient with hyperlipidemia. At discharge patient will continue with Zocor 40 mg daily. Patient with BPH. At discharge patient will continue with finasteride 5 mg daily. Patient with GERD. At discharge patient will continue with Prilosec 20 mg daily. Patient with chronic pain. Will recommend to discontinue gabapentin and baclofen at this time. Both medications can exacerbate current symptoms. Patient may take Tylenol as needed for pain. Patient also takes aspirin. This will need to be discontinued until his work-up for pancytopenia is done. Patient will continue with his other medications including vitamin D3, vitamin B12, folic acid and Elavil 50 mg at bedtime. Vital Signs/Physical Exam: Temp Pulse Resp BP Pulse Ox 99.5 F 87 16 124/63 95 11/12/20 14:35 11/12/20 14:35 11/12/20 14:35 11/12/20 14:35 11/12/20 14:35 General: Alert, In no apparent distress, Oriented x3, Cooperative HEENT: Atraumatic Neck: Supple Respiratory: Clear to auscultation bilaterally, Normal air movement Cardiovascular: Normal pulses, Regular rate/rhythm Gastrointestinal: Normal bowel sounds, Soft and benign, Non-distended, No tenderness, No masses, No rebound, No guarding Musculoskeletal: No erythema, No tenderness, No warmth Integumentary: No tenderness/swelling, Skin lesion Neurological: Normal speech, Normal strength at 5/5 x4 extr, Normal tone, Normal affect Laboratory Data at Discharge: WBC 1.00 K/uL (4.3-10.9) L* D 11/12/20 02:47 Hgb 8.6 g/dL (13.6-17.9) L 11/12/20 14:17 Hct 19.5 % (39.6-49.0) L* 11/12/20 02:47 Plt Count 60 K/uL (152-406) L D 11/12/20 02:47 PT 11.6 SECONDS (9.5-12.5) 11/11/20 13:49 INR 1.01 11/11/20 13:49 Sodium 141 mmol/L (136-145) 11/12/20 02:47 Potassium 3.3 mmol/L (3.5-5.1) L 11/12/20 02:47 BUN 13 mg/dL (7-18) 11/12/20 02:47 Creatinine 0.67 mg/dL (0.55-1.3) 11/12/20 02:47 Glucose 100 mg/dL (74-106) 11/12/20 02:47 Magnesium 1.8 mg/dL (1.8-2.4) 11/12/20 02:47 Total Bilirubin 0.7 mg/dL (0.2-1.0) 11/12/20 02:47 AST 12 U/L (15-37) L 11/12/20 02:47 ALT 17 U/L (12-78) 11/12/20 02:47 Alkaline Phosphatase 94 U/L (45-117) 11/12/20 02:47 Home Medications: Acyclovir 400 mg PO DAILY #7 tablet 11/12/20 Amitriptyline [Elavil*] 1 tab PO BEDTIME 11/12/20 Cholecalciferol (Vitamin D3) [Vitamin D3] 1 cap PO DAILY 11/12/20 Cyanocobalamin [Vitamin B-12*] 1 tab PO DAILY 11/12/20 Finasteride [Proscar*] 1 tab PO DAILY 11/12/20 Fluconazole [Diflucan] 100 mg PO DAILY #7 tablet 11/12/20 Folic Acid 1 mg PO DAILY 11/12/20 Furosemide [Lasix] 20 mg PO DAILY #30 tab 11/12/20 Lisinopril [Zestril] 1 tab PO DAILY 11/12/20 Omeprazole 1 cap PO DAILY 11/12/20 Simvastatin 1 tab PO BEDTIME 11/12/20 levoFLOXacin [Levaquin] 500 mg PO DAILY #7 tab 11/12/20 New Medications: Acyclovir 400 mg PO DAILY #7 tablet Fluconazole [Diflucan] 100 mg PO DAILY #7 tablet Furosemide [Lasix] 20 mg PO DAILY #30 tab levoFLOXacin [Levaquin] 500 mg PO DAILY #7 tab Physician Discharge Instructions: Patient presented with bilateral lower extremity edema, jaundice. Patient found to have pancytopenia. Patient was admitted for further evaluation. Venous Doppler negative. CT scan of the abdomen showed ill-defined area to the right liver. Liver ultrasound showed 2 masses that were nonspecific likely hemangioma. It was recommended that repeat ultrasound be done in 3 to 6 months to monitor stability. CT chest showed calcified and noncalcified pleural plaque changes. No suspicious mass identified. Fibrotic changes noted. Patient reports history of asbestosis. Patient received IV diuretic therapy with improvement of his edema. Patient required transfusion of 3 units of blood. Patient was seen and evaluated by hematology. Hematology suspects possible bone marrow dysfunction. Myelodysplastic syndrome versus leukemia needs to be considered. Peripheral smear performed. Cytology sent out for analysis. Patient desired to go home. Patient stable for discharge. Plan of care addressed in detail with the patient. At discharge the patient will go home on Levaquin 500 mg daily, acyclovir 400 mg daily, and Diflucan 100 mg daily for 7 days. This is due to his neutropenia. The patient will [facility]. His PCP will need to determine if patient requires [facility] and further evaluation. Otherwise PCP can make a referral so that the patient can follow-up with hematology locally for bone marrow biopsy on Monday. During this time patient will need to monitor for any fever, chills. If patient develops any fever or chills he is to return to the hospital for further evaluation. If patient requires hospitalization patient will require [facility] hospitalization to continue work-up and possible treatment. Especially if this is leukemia. Education on MDS, leukemia and bone marrow biopsy provided. Plan of care addressed with patient and daughter. Patient with hypertension. Medications have been adjusted. At discharge patient will no longer take hydrochlorothiazide. Due to his edema the patient will continue with lisinopril 2.5 mg daily and Lasix 20 mg daily. Recommend to monitor his weight daily. If swelling to his legs have improved he can hold his Lasix. Further adjustment in medication can be done by his PCP. Patient with hyperlipidemia. At discharge patient will continue with Zocor 40 mg daily. Patient with BPH. At discharge patient will continue with finasteride 5 mg daily. Patient with GERD. At discharge patient will continue with Prilosec 20 mg daily. Patient with chronic pain. Will recommend to discontinue gabapentin and baclofen at this time. Both medications can exacerbate current symptoms. Patient may take Tylenol as needed for pain. Patient also takes aspirin. This will need to be discontinued until his work-up for pancytopenia is done. Patient will continue with his other medications including vitamin D3, vitamin B12, folic acid and Elavil 50 mg at bedtime. Diet: AHA Activity: Ad german Followup: ALLAN LEMUS [Primary Care Provider] - Time spent managing pt's care (in minutes): 55
--- NOTE | 2020-11-12 19:22 | P.CNS ---
Date of Consult: 11/12/20 Primary Care Provider: [facility] Chief Complaint: Bilateral lower extremity edema History of Present Illness: Patient admitted with worsening lower extremity edema noted to be pancytopenic on labs done int he ER and admitted for management. white count 1.5, hemoglobin 6.2. Platelet count 86. Absolute neutrophil 0.5. Sodium 141, potassium 4.0. Glucose 100. GFR greater than 90. LDH unremarkable. LFTs unremarkable. Iron 176, TIBC 399. Transferrin 285, ferritin [address] transferrin 44% CT scan showed a 15 mm right lobe liver mass. Dopplers negative for DVT USG with no hepatosplenomegaly; the masses likely nonspecific/ ?hemangioma. Chest x-ray unremarkable. Urinalysis unremarkable. He received 3 units prbc and symptomatically feels better. Denies any fevers, chills, night sweats, loss of weight. He reports loss of appetite for a few months since his . No rashes, infections, early satiety, itching etc. Energy at baseline but noticed leg swelling which seems to be worsening with fatigue. No bleeding or bruising from any site. Denies any OTC medications, herbal remedies, b12 or folate deficiency, hypothyroidism, excessive alcohol intake, recent viral or fly s/s, sick contacts, travel. Allergies No Known Allergies Allergy (Unverified 11/11/20 21:20) Home Medications: Acyclovir 400 mg PO DAILY #7 tablet 11/12/20 Amitriptyline [Elavil*] 1 tab PO BEDTIME 11/12/20 Cholecalciferol (Vitamin D3) [Vitamin D3] 1 cap PO DAILY 11/12/20 Cyanocobalamin [Vitamin B-12*] 1 tab PO DAILY 11/12/20 Finasteride [Proscar*] 1 tab PO DAILY 11/12/20 Fluconazole [Diflucan] 100 mg PO DAILY #7 tablet 11/12/20 Folic Acid 1 mg PO DAILY 11/12/20 Furosemide [Lasix] 20 mg PO DAILY #30 tab 11/12/20 Lisinopril [Zestril] 1 tab PO DAILY 11/12/20 Omeprazole 1 cap PO DAILY 11/12/20 Simvastatin 1 tab PO BEDTIME 11/12/20 levoFLOXacin [Levaquin] 500 mg PO DAILY #7 tab 11/12/20 - Past Medical/Surgical History Diabetic: No -: Hypertension -: Hyperlipidemia -: BPH -: Chronic pain -: Chronic anemia Psychosocial/ Personal History: Patient is a - Social History Smoking Status: Current every day smoker Alcohol use: No CD- Drugs: No Caffeine use: Yes Place of Residence: Home Review of Systems 10-point ROS is otherwise unremarkable (LE edema and fatigue) Physical Examination Temp Pulse Resp BP Pulse Ox 99.5 F 87 16 124/63 95 11/12/20 14:35 11/12/20 14:35 11/12/20 14:35 11/12/20 14:35 11/12/20 14:35 General: Alert, In no apparent distress, Oriented x3 HEENT: Atraumatic, Normocephalic, PERRLA, Mucous membr. moist/pink Neck: Supple, No LAD, Without JVD or thyroid abnormality Respiratory: Clear to auscultation bilaterally Cardiovascular: Normal S1 S2, Edema Gastrointestinal: Normal bowel sounds, Soft and benign, Non-distended, W/out hepatomegaly, W/out splenomegaly Musculoskeletal: No clubbing, No swelling, No contractures Integumentary: No rashes Neurological: Normal gait, Normal speech, Normal strength at 5/5 x4 extr, Normal tone, Sensation intact Lymphatics: No axilla or inguinal lymphadenopathy Laboratory Data (last 24 hrs) 11/12/20 02:47: Sodium 141, Potassium 3.3 L, BUN 13, Creatinine 0.67, Glucose 100, Magnesium 1.8, Total Bilirubin 0.7, AST 12 L, ALT 17, Alkaline Phosphatase 94 11/12/20 02:47: WBC 1.00 L* D, Hgb 6.8 L*, Hct 19.5 L*, Plt Count 60 L D 11/12/20 02:30: Hgb Cancelled, Hct Cancelled Conclusions/Impression: 75 year old man with PMH of HTN admitted with lower extremity edema found to have new onset pancytopenia. PANCYTOPENIA: Basic work up does not manifest any reversible causes. No recent viral infections or exanthematous fevers. Likely this is a primary hematological process. Smear consistent with pancytopenia. No blasts identified. Flow cytometry has been sent. I had a detailed conversation with patient regarding possible etiologies like MDS, Leukemia or aplastic anemia. Further work up and evaluation with a bone marrow biopsy is advised. He wishes to go home and follow up as outpatient once he figures out the logistics with [facility]. He has a follow up appt with his PCP tomorrow at 10 am. In the event of any change in baseline status, fevers, infections, he was strongly advised to go to ER Anemia: He received 3 unitis prbc with adequate response. Comprehensive anemia work up in progress. Leucopenia with severe neutropenia: Asymptomatic with no s/s of infections. Recommend prophylactic antibiotics with levofloxacin, valcyclovir and fluconazole for now. Comprehensive anemia work up in progress. Check parvovirus ab, Hep B,c, HIV. Thrombocytopenia: Plt adequate for hemostasis. Transfuse single donor plts if plt count < 15,000; or transfuse if symptomatic with bleeding when plt counts < 50,000. Dr Smith present throughout the discussion who also discussed with patient's daughter for safe follow up once discharged. Time Spent Managing Pts care (In Minutes): 65
[2020-11-12] MEDS ORDERED: HOME MED 1 EA UNK (Simvastatin [Simvastatin] 40 MG Tablet) PO SCH (21:00)
[2020-11-13] MEDS ORDERED: FUROSEMIDE 20 MG/ 2ML VIAL IV SCH (09:00)
[2020-11-14 14:57] LABS: HIV AG/AB 4TH GEN Non-reactive (Non-reactive)
[2020-11-16 21:46] LABS: Albumin, (SPE) 3.5 g/dL (3.8-4.8); Alpha-1-Globulins 0.4 g/dL (0.2-0.3); Alpha-2-Globulins 0.7 g/dL (0.5-0.9); Gamma Globulins 0.7 g/dL (0.8-1.7); INTERPRETATION REPORT
[2020-11-18 04:47] LABS: HBsAG Nonreactive (Nonreactive)
[2020-11-18 20:43] LABS: Immunoglobulin A 141 mg/dL (70-320); Immunoglobulin G 749 mg/dL (600-1540); Immunoglobulin M 66 mg/dL (50-300)
== END 2020-11-12 17:35 | disposition home or self-care (01) | DRG 809 ==
LOC: ER 11:53 → ERHOLD 16:49 → 2ND 19:48 → OBSVTOIN 11-12 12:05
PROVIDERS: ADMIT Family Medicine; ATTEND Family Medicine
PROC: 30233N1 Transfusion of Nonautologous Red Blood Cells into Peripheral Vein, Percutaneous Approach (ICD-10-PCS; principal; 2020-11-11)
DX: D61.818 Other pancytopenia (principal); R17 Unspecified jaundice; C95.90 Leukemia, unspecified not having achieved remission; D46.9 Myelodysplastic syndrome, unspecified; I10 Essential (primary) hypertension; K21.9 Gastro-esophageal reflux disease without esophagitis; N40.0 Benign prostatic hyperplasia without lower urinary tract symptoms; E78.5 Hyperlipidemia, unspecified; J44.9 Chronic obstructive pulmonary disease, unspecified; D18.00 Hemangioma unspecified site; D75.89 Other specified diseases of blood and blood-forming organs; G89.29 Other chronic pain; F17.210 Nicotine dependence, cigarettes, uncomplicated; R60.9 Edema, unspecified; R16.0 Hepatomegaly, not elsewhere classified; Z79.82 Long term (current) use of aspirin; Z90.49 Acquired absence of other specified parts of digestive tract; Z79.899 Other long term (current) drug therapy; Z20.822 Contact with and (suspected) exposure to COVID-19
CPT/HCPCS: 36415; 71045; 71250; 74177; 76705; 80048; 80053; 80074; 80076; 81003; 81015; 82607; 82728; 82746; 82784; 83540; 83615; 83735; 83880; 83883; 84165; 84439; 84443; 84466; 84484; 85018; 85025; 85044; 85610; 85652; 86038; 86140; 86850; 86880; 86900; 86901; 87040; 87086; 87088; 87389; 93005; 93306; 93970; 99285; G0378; J1200; J1940; J7050; P9016; Q9967; U0003

== ENCOUNTER 2020-11-16 08:39 | Emergency (ER) | payer OTHER ==
--- OUTSIDE RECORDS SUMMARY | 2020-11-16 08:42 | XMS REPORT | Continuity of Care Document ---
:1945 Author Organization [facility] t Address [address] [place] [address] Care Team Providers Name Role Phone Latosha [...] Clinicians Facility Department ID 2019-09-05 2019-09-05 Hospital [facility] [id number] 08:41:00 23:59:00 Encounter Jorge Quintero [id number] [place] [id number] [place] [phone] [id number] 2019-09-05 2019-09-05 Orders Doctor TRUJILLO [id number] 00:00:00 00:00:00 Only Unassigned, RUDDY [id number] [place] [facility] [phone] [id number] 2019-05-02 2019-05-02 [employer]ved[facility] Supervisor 1, [facility] [id number] 10:09:47 10:24:47 Visit Ingrid [id number] [place] [id number] [place] [phone] [id number] Results This patient has no known results.
--- NOTE | 2020-11-16 09:55 | RAD REPORT ---
EXAM DESCRIPTION: CT - Head Brain Wo Cont - 11/16/2020 9:30 am CLINICAL HISTORY: WEAKNESS COMPARISON: No comparisons TECHNIQUE: Axial 5 mm thick images of the head were obtained without IV contrast. All CT scans are performed using dose optimization technique as appropriate and may include automated exposure control or mA/KV adjustment according to patient size. FINDINGS: No intracranial hemorrhage, mass, edema or shift of mid-line structures. No acute infarcti on changes seen. No abnormal extra-axial fluid collections. Mild atrophy changes are present. Ventric les are normal in size. Patient does have some mild chronic ischemic change in the cerebral white mat ter and near the basal ganglia. Mastoid air cells are clear. Left side chronic maxillary sinusitis. No globe or orbital content abnor mality. No acute bony findings. IMPRESSION: No acute intracranial finding. Patient has mild atrophy and chronic ischemic change. Chronic sinusitis left maxillary sinus.
[2020-11-16 10:19] LABS: Absolute Lymphocytes (CBC) 0.5 K/uL (0.7-4.9); Basophils % 0.4 % (0-1.3); Hematocrit 25.1 % (39.6-49.0); Lymphocytes % 45.9 % (15.3-44.8); MPV 8.2 fL (7.6-11.3); RBC Red Blood Cell Count 2.36 M/uL (4.33-5.43)
[2020-11-16 10:20] LABS: Protime INR 1.19
[2020-11-16 10:28] LABS: ALT/SGPT 19 U/L (12-78); AST/SGOT 10 U/L (15-37); Albumin 3.3 g/dL (3.4-5.0); Alkaline Phosphatase 101 U/L (45-117); BUN Blood Urea Nitrogen 8 mg/dL (7-18); Bicarbonate 29 mmol/L (21-32); Bilirubin Direct 0.2 mg/dL (0-0.2); Bilirubin Total 0.6 mg/dL (0.2-1.0); Glucose Level 100 mg/dL (74-106); Magnesium 1.9 mg/dL (1.8-2.4); NT PRO-BNP 257 pg/mL (<450); Potassium 3.7 mmol/L (3.5-5.1); Protein, Total 6.7 g/dL (6.4-8.2); Sodium Level 138 mmol/L (136-145); Troponin (Emerg Dept Use Only) 0.02 ng/mL (0.0-0.045)
--- NOTE | 2020-11-16 11:38 | ER ---
Nurse's Notes [facility] Name: eDvendra Fair Age: 75 yrs Sex: Male : 1945 Arrival Date: 11/16/2020 Time: 08:42 Bed 15 Private MD: Diagnosis: Dizziness and giddiness Presentation: 11/16 08:55 Chief complaint: Patient states: feels like he is disoriented, equilibrium feels off , iw started late last night, this morning was worse, was here last week and was admitted for similar symptoms , needed a blood transfusion. Coronavirus screen: At this time, the client does not indicate any symptoms associated with coronavirus-19. Ebola Screen: Patient negative for fever greater than or equal to 101.5 degrees Fahrenheit, and additional compatible Ebola Virus Disease symptoms Patient denies exposure to infectious person. Patient denies travel to an Ebola-affected area in the 21 days before illness onset. No symptoms or risks identified at this time. Initial Sepsis Screen: Does the patient meet any 2 criteria? No. Patient's initial sepsis screen is negative. Does the patient have a suspected source of infection? No. Patient's initial sepsis screen is negative. Risk Assessment: Do you want to hurt yourself or someone else? Patient reports no desire to harm self or others. Onset of symptoms was November 15, 2020. 08:55 Method Of Arrival: Ambulatory iw 08:55 Acuity: NANCY 3 iw Historical: - Allergies: 08:59 No Known Allergies; iw - PMHx: 08:59 Chronic pain; enlarged prostate; GERD; High Cholesterol; Hypertension; iw - PSHx: 08:59 TURP; Hernia repair; back sx; Cholecystectomy; iw - Immunization history:: Adult Immunizations up to date. - Social history:: Smoking status: Patient reports the use of cigarette tobacco products, smokes one pack cigarettes per day. quit today . Screenin:32 Abuse screen: Denies threats or abuse. Denies injuries from another. Nutritional sv screening: No deficits noted. Tuberculosis screening: No symptoms or risk factors identified. Fall Risk None identified. Assessment: 09:31 Reassessment: Pt to CT. Will start PIV and obtain labs when he returns to exam room. ss 09:45 General: Appears in no apparent distress. comfortable, Behavior is calm, cooperative, ss Denies fever, feeling ill, chills. Pain: Denies pain. Neuro: Level of Consciousness is awake, alert, obeys commands, Oriented to person, place, time, situation. Respiratory: Airway is patent Respiratory effort is even, unlabored, Respiratory pattern is regular, symmetrical, Denies cough, shortness of breath. GI: Patient currently denies anorexia, diarrhea, nausea, vomiting. : No signs and/or symptoms were reported regarding the genitourinary system. EENT: Oral mucosa is moist. Throat is clear. Derm: Skin is dry, Skin is yellow, Skin temperature is warm. Musculoskeletal: Circulation, motion, and sensation intact. Range of motion: intact in all extremities. 11:53 Reassessment: Patient appears in no apparent distress at this time. Patient and/or sv family updated on plan of care and expected duration. Pain level reassessed. Patient is alert, oriented x 3, equal unlabored respirations, skin warm/dry/pink. Vital Signs: 08:55 BP 149 / 80; Pulse 95; Resp 16; Temp 98.4; Pulse Ox 100% on R/A; iw 10:27 BP 126 / 64; Pulse 75; Resp 17; Pulse Ox 95% ; sv 10:33 BP 126 / 64; Pulse 73; Resp 16; Pulse Ox 97% ; ss ED Course: 08:42 Patient arrived in ED. mr 08:58 Triage completed. iw 08:59 Arm band placed on. iw 09:05 Venessa Valadez FNP-C is PHCP. kb 09:05 Kiet Prieto MD is Attending Physician. kb 09:30 CT Head Brain wo Cont In Process Unspecified. EDMS 09:31 Candi Stern, RN is Primary Nurse. ss 09:59 Primary Nurse role handed off by Candi Stern, MARIAN sv 09:59 Oanh Otero, MARIAN is Primary Nurse. sv 10:00 Patient has correct armband on for positive identification. Placed in gown. Bed in low sv position. Call light in reach. Report received from Candi FONSECA. Door closed. Head of bed elevated. 10:11 monitor and storage bin tender on. Pulse ox on. NIBP on. sr5 10:11 Initial lab(s) drawn, by me, sent to lab. Inserted saline lock: 20 gauge in left sr5 forearm, using aseptic technique. Blood collected. 10:34 EKG done, by ED staff, reviewed by Kiet Prieto MD. sr5 11:53 No provider procedures requiring assistance completed. IV discontinued, intact, sv bleeding controlled, No redness/swelling at site. Pressure dressing applied. Administered Medications: No medications were administered Outcome: 11:38 Discharge ordered by . daniel 11:53 Discharged to home ambulatory. sv 11:53 Condition: stable 11:53 Discharge instructions given to patient, Instructed on discharge instructions, follow up and referral plans. Demonstrated understanding of instructions, follow-up care. 11:53 Patient left the ED. sv Signatures: Dispatcher [employer] EDMS Venessa Valadez, PROTOTYPE CARPENTER-C PROTOTYPE CARPENTER-Oanh Wilks RN RN Ludivina Castro Irene, RN MARIAN Candi tSern RN RN ss Resecker, Sam, RN RN sr5 Corrections: (The following items were deleted from the chart) 09:00 08:55 Chief complaint: Patient states: feels like he is disoriented, equilibrium feels iw off , started late last night, this morning was worse, was here last week and was admitted for similar symptoms , needed a blood transfusion , found a liver mass iw
--- NOTE | 2020-11-16 11:39 | EDPHYS ---
Physician Documentation [facility] Name: Devendra Fair Age: 75 yrs Sex: Male : 1945 Arrival Date: 11/16/2020 Time: 08:42 Bed 15 Private MD: ED Physician Kiet Prieto HPI: 11/16 16:04 This 75 yrs old Male presents to ER via Ambulatory with complaints of Feels kb like passing out. 16:04 The patient has not experienced similar symptoms in the past. The patient has been kb recently been admitted at [facility], was discharged last week. 16:06 The patient presents with generalized weakness, feeling off balance. Onset: The kb symptoms/episode began/occurred last night. Context: occurred at home, just prior to the episode the patient experienced no apparent symptoms. Modifying factors: The symptoms are alleviated by nothing, the symptoms are aggravated by nothing. Associated signs and symptoms: The patient has no apparent associated signs or symptoms. Severity of symptoms: At their worst the symptoms were mild moderate in the emergency department the symptoms are unchanged. Patient's baseline: Neuro: alert and fully oriented, Motor: no deficits, Ambulation: walks without assistance, Speech: normal. Pt reports he was admitted last week and had to have 3 units of blood. States he was discharged and felt pretty good until yesterday. States he started feeling unsteady on his feet so he wanted to come get checked out. Historical: - Allergies: 08:59 No Known Allergies; iw - PMHx: 08:59 Chronic pain; enlarged prostate; GERD; High Cholesterol; Hypertension; iw - PSHx: 08:59 TURP; Hernia repair; back sx; Cholecystectomy; iw - Immunization history:: Adult Immunizations up to date. - Social history:: Smoking status: Patient reports the use of cigarette tobacco products, smokes one pack cigarettes per day. quit today . ROS: 16:00 Constitutional: Negative for fever, chills, and weight loss, Cardiovascular: Negative kb for chest pain, palpitations, and edema, Respiratory: Negative for shortness of breath, cough, wheezing, and pleuritic chest pain, Abdomen/GI: Negative for abdominal pain, nausea, vomiting, diarrhea, and constipation, MS/Extremity: Negative for injury and deformity, Skin: Negative for injury, rash, and discoloration. 16:00 Neuro: Positive for dizziness, weakness. Exam: 16:00 Constitutional: This is a well developed, well nourished patient who is awake, alert, kb and in no acute distress. Head/Face: Normocephalic, atraumatic. Cardiovascular: Regular rate and rhythm with a normal S1 and S2. No gallops, murmurs, or rubs. No pulse deficits. Respiratory: Respirations even and unlabored. No increased work of breathing, no retractions or nasal flaring. Abdomen/GI: Soft, non-tender. No distention Skin: Warm, dry with normal turgor. Normal color. MS/ Extremity: Pulses equal, no cyanosis. Neurovascular intact. Full, normal range of motion. Neuro: Awake and alert, GCS 15, oriented to person, place, time, and situation. Moves all extremities. Normal gait. 16:00 Eyes: Sclera: icterus. Vital Signs: 08:55 BP 149 / 80; Pulse 95; Resp 16; Temp 98.4; Pulse Ox 100% on R/A; iw 10:27 BP 126 / 64; Pulse 75; Resp 17; Pulse Ox 95% ; sv 10:33 BP 126 / 64; Pulse 73; Resp 16; Pulse Ox 97% ; ss MDM: 09:05 Patient medically screened. kb 11:35 Data reviewed: vital signs, nurses notes. Data interpreted: Pulse oximetry: on room air kb is 97 %. Interpretation: normal. Counseling: I had a detailed discussion with the patient and/or guardian regarding: the historical points, exam findings, and any diagnostic results supporting the discharge/admit diagnosis, lab results, radiology results, the need for outpatient follow up, hematology, to return to the emergency department if symptoms worsen or persist or if there are any questions or concerns that arise at home. ED course: Discussed pt condition with ERP. Dr Prieto evaluated pt as well. Blood counts are similar to previous labs on discharge last week. Discharge notes from admission reviewed. [facility], will go to Dr Armendariz's office upon discharge from here. Had an appt scheduled for today. Pt states he is feeling better.. 11/16 09:17 Order name: Basic Metabolic Panel; Complete Time: 10:29 kb 11/16 09:17 Order name: CBC with Diff; Complete Time: 10:38 kb 11/16 09:17 Order name: LFT's; Complete Time: 10:29 kb 11/16 09:17 Order name: Magnesium; Complete Time: 10:29 kb 11/16 09:17 Order name: NT PRO-BNP; Complete Time: 10:29 kb 11/16 09:17 Order name: PT-INR; Complete Time: 11:03 kb 11/16 09:17 Order name: Troponin (emerg Dept Use Only); Complete Time: 10:29 kb 11/16 09:17 Order name: EKG; Complete Time: 09:18 kb 11/16 09:17 Order name: Cardiac monitoring; Complete Time: 09:42 kb 11/16 09:17 Order name: EKG - Nurse/Tech; Complete Time: 10:34 kb 11/16 09:17 Order name: IV Saline Lock; Complete Time: 10:11 kb 11/16 09:17 Order name: Labs collected and sent; Complete Time: 10:11 kb 11/16 09:17 Order name: O2 Per Protocol; Complete Time: 09:42 kb 11/16 09:17 Order name: CT Head Brain wo Cont; Complete Time: 10:25 kb 11/16 09:17 Order name: O2 Sat Monitoring; Complete Time: 09:42 kb Administered Medications: No medications were administered Disposition: 15:13 Co-signature as Attending Physician, Kiet Prieto MD. rn Disposition: 11/16/20 11:38 Discharged to Home. Impression: Dizziness and giddiness. - Condition is Stable. - Discharge Instructions: Dizziness, [id number]. - Medication Reconciliation Form, Thank You Letter, Antibiotic Education, Prescription Opioid Use form. - Follow up: Emergency Department; When: As needed; Reason: Worsening of condition. Follow up: Private Physician; When: 2 - 3 days; Reason: Recheck today's complaints, Continuance of care, Re-evaluation by your physician. Signatures: Dispatcher [employer] Venessa Small FNP-C FNP-Oanh Wilks, RN RN Kalee Sorto RN RN iw Nieto, Roman, MD MD blower blast furnace: (The following items were deleted from the chart) 11:53 11:38 11/16/2020 11:38 Discharged to Home. Impression: Dizziness and giddiness. sv Condition is Stable. Forms are Medication Reconciliation Form, Thank You Letter, Antibiotic Education, Prescription Opioid Use. Follow up: Emergency Department; When: As needed; Reason: Worsening of condition. Follow up: Private Physician; When: 2 - 3 days; Reason: Recheck today's complaints, Continuance of care, Re-evaluation by your physician. kb
[2020-11-16 12:16] VITALS: TEMP 98.4
[2020-11-16 12:18] VITALS: BP 126/64
[2020-11-16 12:19] VITALS: O2SAT 97
== END 2020-11-16 11:53 | disposition home or self-care (01) ==
LOC: ER 08:39
DX: R42 Dizziness and giddiness (principal); R53.1 Weakness; F17.210 Nicotine dependence, cigarettes, uncomplicated; G89.29 Other chronic pain; K21.9 Gastro-esophageal reflux disease without esophagitis; E78.00 Pure hypercholesterolemia, unspecified; I10 Essential (primary) hypertension
CPT/HCPCS: 36415; 70450; 80048; 80076; 83735; 83880; 84484; 85025; 85610; 93005; 99284

== ENCOUNTER 2020-12-11 07:28 | Day surgery (SDC) | payer OTHER ==
[2020-12-11] MEDS ORDERED: NA CHLORIDE 0.9% 500 ML ONE (08:31)
[2020-12-11 08:42] VITALS: BMI 26.0
[2020-12-11 08:44] VITALS: O2SAT 100
[2020-12-11 15:23] VITALS: BP 141/61; TEMP 97.9
[2020-12-11 15:28] LABS: Hematocrit 25.2 % (39.6-49.0)
== END 2020-12-11 15:15 | disposition home or self-care (01) ==
LOC: DS 07:28
PROVIDERS: ATTEND Internal Medicine Medical Oncology
DX: D61.818 Other pancytopenia (principal); C92.00 Acute myeloblastic leukemia, not having achieved remission
CPT/HCPCS: 36415; 86900; 86850; 86901; 85018; 85014; 36430; P9016 ×2; J7050; 85025; 99215

== ENCOUNTER 2020-12-29 07:31 | Day surgery (SDC) | payer OTHER ==
[2020-12-29] MEDS ORDERED: NA CHLORIDE 0.9% 250 ML ONE ×2 (08:39→11:20)
[2020-12-29 16:35] LABS: Hematocrit 30.3 % (39.6-49.0)
[2020-12-29 18:07] VITALS: BP 125/53; TEMP 98.1; O2SAT 97
== END 2020-12-29 16:12 | disposition home or self-care (01) ==
LOC: DS 07:31
PROVIDERS: ATTEND Internal Medicine Medical Oncology
DX: D64.9 Anemia, unspecified (principal); D46.Z Other myelodysplastic syndromes; D61.818 Other pancytopenia
CPT/HCPCS: 36415; 86900; 86850; 86901; 85018; 85014; 36430; P9016 ×2; J7050 ×2

== ENCOUNTER 2021-01-19 07:02 | Day surgery (SDC) | payer OTHER ==
[2021-01-18 18:18] LABS: ALT/SGPT 41 U/L (12-78); AST/SGOT 52 U/L (15-37); Albumin 3.1 g/dL (3.4-5.0); Alkaline Phosphatase 120 U/L (45-117); BUN Blood Urea Nitrogen 17 mg/dL (7-18); Bicarbonate 24 mmol/L (21-32); Bilirubin Total 0.6 mg/dL (0.2-1.0); Glucose Level 100 mg/dL (74-106); Potassium 3.7 mmol/L (3.5-5.1); Protein, Total 5.6 g/dL (6.4-8.2); Sodium Level 136 mmol/L (136-145)
[2021-01-19 07:58] LABS: Absolute Lymphocytes (CBC) 0.4 K/uL (0.7-4.9); Basophils % 0.1 % (0-1.3); Hematocrit 18.7 % (39.6-49.0); Lymphocytes % 91.1 % (15.3-44.8); MPV 8.5 fL (7.6-11.3); RBC Red Blood Cell Count 1.97 M/uL (4.33-5.43)
[2021-01-19] MEDS ORDERED: NA CHLORIDE 0.9% 250 ML ONE ×2 (08:21→10:59)
[2021-01-19 08:36] LABS: Blood Morphology Comment NOT SEEN (NOT SEEN); Platelet Estimate DECR
[2021-01-19 09:10] VITALS: BMI 26.9
[2021-01-19 15:06] VITALS: BP 138/67; TEMP 98.1; O2SAT 99
[2021-01-19 16:05] LABS: Hematocrit 26.1 % (39.6-49.0)
== END 2021-01-19 15:45 | disposition home or self-care (01) ==
LOC: DS 07:02
PROVIDERS: ATTEND Internal Medicine Medical Oncology
DX: D61.818 Other pancytopenia (principal); C92.00 Acute myeloblastic leukemia, not having achieved remission
CPT/HCPCS: 85025; 36415; 86900; 86850; 86901; 85018; 85014; 80053; 36430; P9016 ×2; J7050 ×2

== ENCOUNTER 2021-01-29 07:07 | Day surgery (SDC) | payer OTHER ==
[2021-01-29] MEDS ORDERED: NA CHLORIDE 0.9% 250 ML ONE ×2 (08:34→11:23)
[2021-01-29 11:50] VITALS: BMI 26.3
[2021-01-29 14:20] VITALS: O2SAT 100
[2021-01-29 16:06] VITALS: BP 149/60; TEMP 97.6
[2021-01-29 16:12] LABS: Hematocrit 24.7 % (39.6-49.0)
== END 2021-01-29 15:56 | disposition home or self-care (01) ==
LOC: DS 07:07
PROVIDERS: ATTEND Internal Medicine Medical Oncology
DX: D64.9 Anemia, unspecified (principal); D61.818 Other pancytopenia; D69.6 Thrombocytopenia, unspecified
CPT/HCPCS: 36415; 86900; 86850; 86901; 85018; 85014; 36430; P9016 ×2; J7050 ×2

== ENCOUNTER 2021-02-23 08:29 | Day surgery (SDC) | payer OTHER ==
[2021-02-23] MEDS ORDERED: NA CHLORIDE 0.9% 250 ML ONE ×2 (09:11→11:43)
[2021-02-23 14:32] VITALS: BP 146/67; TEMP 98.2; O2SAT 98
[2021-02-23 14:33] VITALS: BMI 26.0
[2021-02-23 15:55] LABS: Hematocrit 24.2 % (39.6-49.0)
== END 2021-02-23 15:43 | disposition home health service (06) ==
LOC: DS 08:29
PROVIDERS: ATTEND Internal Medicine Medical Oncology
DX: C92.00 Acute myeloblastic leukemia, not having achieved remission (principal); D61.818 Other pancytopenia
CPT/HCPCS: 36415; 86900; 86850; 86901; 85018; 85014; 36430; P9016 ×2; J7050 ×2

== ENCOUNTER 2021-02-26 07:03 | Day surgery (SDC) | payer OTHER ==
[2021-02-26] MEDS ORDERED: NA CHLORIDE 0.9% 250 ML ONE (08:19)
[2021-02-26 08:56] VITALS: O2SAT 99; BMI 26.6
[2021-02-26 10:05] LABS: MPV 7.2 fL (7.6-11.3)
[2021-02-26 10:09] VITALS: BP 121/64; TEMP 98.5
[2021-02-26 10:47] LABS: Platelet Estimate DECR
== END 2021-02-26 09:57 | disposition home or self-care (01) ==
LOC: DS 07:03
PROVIDERS: ATTEND Internal Medicine Medical Oncology
DX: D69.6 Thrombocytopenia, unspecified (principal); C92.00 Acute myeloblastic leukemia, not having achieved remission
CPT/HCPCS: 36415; 86900; 86850; 85049; 86901; 36430; P9035; J7050

== ENCOUNTER 2021-03-09 07:12 | Day surgery (SDC) | payer OTHER ==
[2021-03-08 18:51] LABS: ALT/SGPT 21 U/L (12-78); AST/SGOT 18 U/L (15-37); Albumin 3.1 g/dL (3.4-5.0); Alkaline Phosphatase 149 U/L (45-117); BUN Blood Urea Nitrogen 8 mg/dL (7-18); Bicarbonate 26 mmol/L (21-32); Bilirubin Total 0.5 mg/dL (0.2-1.0); Glucose Level 102 mg/dL (74-106); Potassium 4.1 mmol/L (3.5-5.1); Sodium Level 139 mmol/L (136-145)
[2021-03-09] MEDS ORDERED: NA CHLORIDE 0.9% 500 ML ONE (08:05)
[2021-03-09 10:13] VITALS: O2SAT 99; BMI 26.0
[2021-03-09 16:23] LABS: Hematocrit 25.6 % (39.6-49.0)
[2021-03-09 16:31] VITALS: BP 140/62; TEMP 98.6
== END 2021-03-09 16:04 | disposition home or self-care (01) ==
LOC: DS 07:12
PROVIDERS: ATTEND Internal Medicine Medical Oncology
DX: D64.9 Anemia, unspecified (principal); C92.00 Acute myeloblastic leukemia, not having achieved remission; D61.818 Other pancytopenia
CPT/HCPCS: 36415 ×2; 86900; 86850; 86901; 85018; 85014; 80053; 36430; P9016 ×2; J7050

== ENCOUNTER 2021-03-24 07:24 | Day surgery (SDC) | payer OTHER ==
[2021-03-24] MEDS ORDERED: NA CHLORIDE 0.9% 250 ML ONE ×2 (08:12→10:43)
[2021-03-24 08:44] VITALS: BMI 25.7
[2021-03-24 14:01] VITALS: BP 151/71; TEMP 98.5; O2SAT 100
[2021-03-24 16:12] LABS: Hematocrit 28.6 % (39.6-49.0)
== END 2021-03-24 15:45 | disposition home or self-care (01) ==
LOC: DS 07:24
PROVIDERS: ATTEND Internal Medicine Medical Oncology
DX: D61.818 Other pancytopenia (principal); D46.Z Other myelodysplastic syndromes; D64.9 Anemia, unspecified
CPT/HCPCS: 36415; 86900; 86850; 86901; 85018; 85014; 36430; P9016 ×2; J7050 ×2

== ENCOUNTER 2021-06-18 07:12 | Day surgery (SDC) | payer OTHER ==
[2021-06-18] MEDS ORDERED: NA CHLORIDE 0.9% 250 ML ONE (07:32)
[2021-06-18 08:33] VITALS: BMI 27.1
[2021-06-18 08:36] VITALS: BP 99/52; TEMP 98.3; O2SAT 92
[2021-06-18 09:13] LABS: MPV 7.8 fL (7.6-11.3)
== END 2021-06-18 09:08 | disposition home or self-care (01) ==
LOC: DS 07:12
PROVIDERS: ATTEND Internal Medicine Medical Oncology
DX: C92.00 Acute myeloblastic leukemia, not having achieved remission (principal); D69.59 Other secondary thrombocytopenia
CPT/HCPCS: 36415; 86900; 85049; 86901; 36430; P9035; J7050

== ENCOUNTER 2021-06-21 14:37 | Observation (INO) | payer OTHER ==
[2021-06-21 15:39] LABS: Protime INR 1.39
[2021-06-21 15:47] LABS: Absolute Lymphocytes (CBC) 0.3 K/uL (0.7-4.9); Basophils % 0.1 % (0-1.3); Hematocrit 22.1 % (39.6-49.0); Lymphocytes % 5.6 % (15.3-44.8); MPV 8.5 fL (7.6-11.3); RBC Red Blood Cell Count 2.59 M/uL (4.33-5.43)
--- NOTE | 2021-06-21 16:01 | RAD REPORT ---
EXAM DESCRIPTION: CT - Chest For Pe Angio - 06/21/2021 3:34 pm CLINICAL HISTORY: Chest pain. SOB COMPARISON: Thorax Wo Con dated 11/11/2020; Abdomen Pelvis W Contrast dated 11/11/2020 TECHNIQUE: CT angiogram of the pulmonary arteries was performed with MIP. All CT scans are performed using dose optimization technique as appropriate and may include automated exposure control or mA/KV adjustment according to patient size. FINDINGS: No evidence of pulmonary thromboembolism. No acute aortic finding demonstrated. Numerous air cysts are present throughout both lungs. Ground-glass opacities are seen bilaterally wit h small bilateral pleural effusions. Lymphadenopathy has developed in the mediastinum, both hilum and supraclavicular region. Calcified and noncalcified pleural plaques are present bilaterally. Mild thoracic spondylosis. IMPRESSION: No evidence of pulmonary thromboembolism. Development of moderate lymphadenopathy is seen in the mediastinum and hilum since the comparative im aging studies. Lymphoma is a possibility and clinical correlation is recommended. Small bilateral pleural effusions are seen with multiple air cysts bilaterally. Mild interstitial pul monary edema suspected. Calcified pleural plaquing is present bilaterally most compatible with previous asbestos exposure.
--- NOTE | 2021-06-21 16:14 | RAD REPORT ---
EXAM DESCRIPTION: RAD - Chest Single View - 06/21/2021 3:15 pm CLINICAL HISTORY: SOB Chest pain. COMPARISON: Chest Single View dated 11/11/2020 FINDINGS: Portable technique limits examination quality. Mild interstitial pulmonary opacities are present, greatest in the left lung base. Trace bilateral pl eural effusions are seen. The heart is normal in size. No displaced fractures.
[2021-06-21 16:28] LABS: ALT/SGPT 79 U/L (12-78); AST/SGOT 70 U/L (15-37); Albumin 1.9 g/dL (3.4-5.0); Alkaline Phosphatase 288 U/L (45-117); BUN Blood Urea Nitrogen 17 mg/dL (7-18); Bicarbonate 29 mmol/L (21-32); Bilirubin Direct 0.5 mg/dL (0-0.2); Glucose Level 125 mg/dL (74-106); Magnesium 1.7 mg/dL (1.8-2.4); NT PRO-BNP 1221 pg/mL (<450); Protein, Total 6.8 g/dL (6.4-8.2); Sodium Level 131 mmol/L (136-145); Troponin (Emerg Dept Use Only) < 0.02 ng/mL (0.0-0.045)
[2021-06-21 16:30] LABS: Potassium 2.9 mmol/L (3.5-5.1)
[2021-06-21] MEDS ORDERED: NA CHLORIDE 0.9% 500 ML ONE (16:30)
--- NOTE | 2021-06-21 16:30 | ER ---
Nurse's Notes [facility] Name: Devendra Fair Age: 76 yrs Sex: Male : 1945 Arrival Date: 06/21/2021 Time: 14:40 Bed 4 Private MD: Diagnosis: Antineoplastic chemotherapy induced pancytopenia Presentation: 06/21 14:58 Chief complaint: Patient's son or daughter states: was recently d/c from [place] , had a iw reaction to a PLT infusion, has hx of AML, has been having SOB on exertion since being d/c from OR, was getting low O2 reading at home. Coronavirus screen: Client presents with at least one sign or symptom that may indicate coronavirus-19. Ebola Screen: Patient negative for fever greater than or equal to 101.5 degrees Fahrenheit, and additional compatible Ebola Virus Disease symptoms Patient denies exposure to infectious person. Patient denies travel to an Ebola-affected area in the 21 days before illness onset. No symptoms or risks identified at this time. Initial Sepsis Screen: Does the patient meet any 2 criteria? No. Patient's initial sepsis screen is negative. Does the patient have a suspected source of infection? No. Patient's initial sepsis screen is negative. Risk Assessment: Do you want to hurt yourself or someone else? Patient reports no desire to harm self or others. 14:58 Method Of Arrival: Wheelchair 14:58 Acuity: NANCY 3 iw 15:06 Onset of symptoms was June 18, 2021. iw Triage Assessment: 15:05 General: Appears in no apparent distress. Behavior is calm, cooperative, appropriate ll1 for age. Pain: Denies pain. Neuro: No deficits noted. Cardiovascular: Reports shortness of breath, Heart tones S1 S2 Capillary refill < 3 seconds Clubbing of nail beds is absent JVD is absent Patient's skin is warm and dry. Respiratory: Reports shortness of breath at rest Airway is patent Trachea midline Respiratory effort is even, labored, Respiratory pattern is regular, symmetrical, Breath sounds are diminished bilaterally. GI: No deficits noted. Historical: - Allergies: 15:03 No Known Allergies; iw - Home Meds: 15:10 aspirin 81 mg Oral chew [Active]; baclofen 10 mg Oral tab [Active]; cholecalciferol iw (vitamin D3) Oral [Active]; cyanocobalamin (vitamin B-12) Oral [Active]; finasteride 5 mg Oral tab [Active]; folic acid 1 mg Oral tab [Active]; gabapentin 400 mg Oral cap [Active]; hydrochlorothiazide 25 mg Oral tab [Active]; lisinopril 2.5 mg Oral tab [Active]; omeprazole 20 mg Oral TbEC [Active]; simvastatin 40 mg Oral tab [Active]; - PMHx: 15:02 Chronic pain; enlarged prostate; GERD; High Cholesterol; Hypertension; Leukemia; iw - Immunization history:: Adult Immunizations up to date. - Social history:: Smoking status: unknown. Screenin:29 Abuse screen: Denies threats or abuse. Nutritional screening: No deficits noted. ll1 Tuberculosis screening: No symptoms or risk factors identified. Fall Risk IV access (20 points). Gait- Weak (10 pts.). Total Sweeney Fall Scale indicates Low Risk Score (25-44 pts). Fall prevention measures have been instituted. Side Rails Up X 2 Placed close to Nursing Station Frequent Obs/Assesments occuring Family Present and informed to notify staff if they need to leave bedside As available Patient and Family Educated on Fall Prevention Program and strategies. Assessment: 16:00 Reassessment: No changes from previously documented assessment. Patient and/or family ll1 updated on plan of care and expected duration. Pain level reassessed. 17:00 Reassessment: No changes from previously documented assessment. Patient and/or family ll1 updated on plan of care and expected duration. Pain level reassessed. 18:00 Reassessment: No changes from previously documented assessment. Patient and/or family ll1 updated on plan of care and expected duration. Pain level reassessed. Patient is alert, oriented x 3, equal unlabored respirations, skin warm/dry/pink. Vital Signs: 14:58 BP 122 / 51; Pulse 82; Resp 20 S; Pulse Ox 97% on R/A; iw 15:29 BP 120 / 62; Pulse 60; Resp 20; Pulse Ox 97% on R/A; Pain 0/10; ll1 17:31 BP 134 / 69; Pulse 86; Resp 18; Temp 97.7; Pulse Ox 97% on 2 lpm NC; ll1 18:00 BP 127 / 64; Pulse 88; Resp 20; Temp 97.5; Pulse Ox 100% ; ll1 ED Course: 14:40 Patient arrived in ED. as 14:47 Edinson Mooney MD is Attending Physician. sp3 15:01 Triage completed. iw 15:05 Arm band placed on. iw 15:16 XRAY Chest (1 view) In Process Unspecified. EDMS 15:27 Lanie Perez RN is Primary Nurse. ll1 15:27 Inserted saline lock: 22 gauge in right hand, using aseptic technique. Blood collected. ll1 15:30 Patient has correct armband on for positive identification. Call light in reach. Side ll1 rails up X 1. property assessment monitor on. Pulse ox on. NIBP on. 15:34 CT Chest For PE Angio In Process Unspecified. EDMS 15:39 EKG done, by ED staff, reviewed by Edinson Mooney MD. em1 16:28 Prakash Smith DO is Hospitalizing Provider. sp3 19:33 Primary Nurse role handed off by Lanie Perez RN mw2 20:01 Mercedes Leahy is Primary Nurse. tw5 20:03 Inserted saline lock: 20 gauge in left antecubital area, using aseptic technique. ds4 Administered Medications: No medications were administered Outcome: 16:29 Decision to Hospitalize by Provider. sp3 19:12 Admitted to Med/surg Report called to Attempted to call report. Spoke to kimmy Barillas tw5 stated nurses are in the middle of getting report and will call back when they are ready. 20:02 Admitted to Med/surg Report called to Attempted to call report. Spoke to Oanh oneal tw5 stated she would try and get the nurse on the line. 20:10 Admitted to Med/surg Report called to Attempted to call report again. Spoke to tw5 oanh, she stated she would try and get the nurse again. 20:18 Admitted to Med/surg Report called to Report called to Oanh Lo RN. tw5 20:22 Patient left the ED. tw5 Signatures: Dispatcher [employer] Jammie Rock Irene, RN MARIAN iw Morgan Wallis em1 Flo Case ds4 Javier Edwards mw2 Lanie Perez RN RN 1 Edinson Mooney MD MD sp3 Mercedes Leahy tw5
--- NOTE | 2021-06-21 16:30 | EDPHYS ---
Physician Documentation [facility] Name: Devendra Fair Age: 76 yrs Sex: Male : 1945 Arrival Date: 06/21/2021 Time: 14:40 Bed 4 Private MD: ED Physician Edinson Mooney HPI: 06/21 15:19 This 76 yrs old Male presents to ER via Wheelchair with complaints of sp3 shortness of breath. 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 Patient was discharged from the [facility] 5 days ago for some sort of reaction after receiving platelets per the family. Today patient was getting his blood drawn and due to elevated LFTs was sent to the hospital here for a liver ultrasound during which he became further short of breath and therefore checked into the emergency department for further evaluation. At home they had a portable pulse oxygenation device which showed a reading in the 50s. Here his reading was also low but after warming his fingers getting a proper waveform it was found that his pulse oxygenation was 98% on room air. Currently patient is without major shortness of breath but he states that upon any exertion it does return. He is been slowly more more short of breath while on the chemotherapy. He denies any chest pain, back pain, peripheral edema, abdominal pain, headache, nausea, vomiting, diarrhea, syncope, focal neuro deficit, any other ROS at this time. Remainder of ROS is negative.. Historical: - Allergies: 15:03 No Known Allergies; iw - Home Meds: 15:10 aspirin 81 mg Oral chew [Active]; baclofen 10 mg Oral tab [Active]; cholecalciferol iw (vitamin D3) Oral [Active]; cyanocobalamin (vitamin B-12) Oral [Active]; finasteride 5 mg Oral tab [Active]; folic acid 1 mg Oral tab [Active]; gabapentin 400 mg Oral cap [Active]; hydrochlorothiazide 25 mg Oral tab [Active]; lisinopril 2.5 mg Oral tab [Active]; omeprazole 20 mg Oral TbEC [Active]; simvastatin 40 mg Oral tab [Active]; - PMHx: 15:02 Chronic pain; enlarged prostate; GERD; High Cholesterol; Hypertension; Leukemia; iw - Immunization history:: Adult Immunizations up to date. - Social history:: Smoking status: unknown. ROS: 15:21 Neck: Negative for injury, pain, and swelling, Cardiovascular: Negative for chest pain, sp3 palpitations, and edema, Abdomen/GI: Negative for abdominal pain, nausea, vomiting, diarrhea, and constipation, Neuro: Negative for headache, weakness, numbness, tingling, and seizure, Psych: Negative for depression, anxiety, suicide ideation, homicidal ideation, and hallucinations, Endocrine: Negative for neck swelling, polydipsia, polyuria, polyphagia, and marked weight changes. 15:21 All other systems are negative. Exam: 15:22 Constitutional: This is a well developed, well nourished patient who is awake, alert, sp3 and in no acute distress. Head/Face: Normocephalic, atraumatic. Eyes: Pupils equal round and reactive to light, extra-ocular motions intact. Lids and lashes normal. Conjunctiva and sclera are non-icteric and not injected. Cornea within normal limits. Periorbital areas with no swelling, redness, or edema. ENT: Nares patent. No nasal discharge, no septal abnormalities noted. External auditory canals are clear. Oropharynx with no redness, swelling, or masses, exudates, or evidence of obstruction, uvula midline. Mucous membranes moist. Neck: Trachea midline, no thyromegaly or masses palpated, and no cervical lymphadenopathy. Supple, full range of motion without nuchal rigidity, or vertebral point tenderness. No Meningismus. Chest/axilla: Normal chest wall appearance and motion. Nontender with no deformity. No lesions are appreciated. Cardiovascular: Regular rate and rhythm with a normal S1 and S2. No gallops, murmurs, or rubs. Normal PMI, no JVD. No pulse deficits. Abdomen/GI: Soft, non-tender, with normal bowel sounds. No distension or tympany. No guarding or rebound. No evidence of tenderness throughout. Back: No spinal tenderness. No costovertebral tenderness. Full range of motion. Skin: Warm, dry with normal turgor. Normal color with no rashes, no lesions, and no evidence of cellulitis. MS/ Extremity: Pulses equal, no cyanosis. Neurovascular intact. Full, normal range of motion. Neuro: Awake and alert, GCS 15, oriented to person, place, time, and situation. Cranial nerves II-XII grossly intact. Motor strength 5/5 in all extremities. Sensory grossly intact. Cerebellar exam normal. Normal gait. 15:22 Respiratory: Nonspecific rhonchi diffuse and very mild in nature. No rales, wheezing, respiratory difficulty, respiratory distress, stridor, any other findings on physical exam.. 15:24 ECG was reviewed by the Attending Physician. EKG demonstrates normal sinus rhythm at 81 sp3 bpm with normal intervals, normal QRS, normal axis, nonspecific ST/T changes diffusely without evidence of ischemia with occasional PAC and PVC without any runs or other abnormalities. Vital Signs: 14:58 BP 122 / 51; Pulse 82; Resp 20 S; Pulse Ox 97% on R/A; iw 15:29 BP 120 / 62; Pulse 60; Resp 20; Pulse Ox 97% on R/A; Pain 0/10; ll1 17:31 BP 134 / 69; Pulse 86; Resp 18; Temp 97.7; Pulse Ox 97% on 2 lpm NC; ll1 18:00 BP 127 / 64; Pulse 88; Resp 20; Temp 97.5; Pulse Ox 100% ; ll1 MDM: 15:03 Patient medically screened. sp3 15:22 Data reviewed: vital signs, nurses notes. ED course: 76-year-old male with AML on sp3 active chemo now presents with dyspnea on exertion. Will assess laboratory values, EKG, chest x-ray, CT PE protocol given high risk for pulmonary embolism. If work-up is negative and his clinical status remains as it is, patient will likely be discharged home. If patient has any abnormal findings or has worsening condition, we will admit him for observation.. 16:27 ED course: Platelets returned at 16 and hemoglobin of 7.2. We will admit patient under sp3 observation and transfuse both and reevaluate. I spoken to the hospitalist will be taking over care.. 06/21 15:04 Order name: Basic Metabolic Panel sp3 06/21 15:04 Order name: CBC with Diff; Complete Time: 16:02 sp3 06/21 15:04 Order name: LFT's sp3 06/21 15:04 Order name: Magnesium sp3 06/21 15:04 Order name: NT PRO-BNP sp3 06/21 15:04 Order name: PT-INR; Complete Time: 16:02 sp3 06/21 15:04 Order name: Troponin (emerg Dept Use Only) sp3 06/21 15:53 Order name: Type And Screen bd 06/21 16:07 Order name: Bb Add On bd 06/21 16:19 Order name: ABO/RH typing; Complete Time: 16:30 EDMS 06/21 16:19 Order name: Antibody Screen; Complete Time: 16:30 EDMA 06/21 16:19 Order name: ABO/RH typing EDMA 06/21 16:19 Order name: Antibody Screen EDMA 06/21 16:19 Order name: Packed RBC Leukored EDMA 06/21 15:04 Order name: XRAY Chest (1 view); Complete Time: 16:30 3 06/21 15:04 Order name: EKG; Complete Time: 15:04 sp3 06/21 15:04 Order name: Cardiac monitoring; Complete Time: 15:29 3 06/21 15:04 Order name: EKG - Nurse/Tech; Complete Time: 15:29 3 06/21 15:04 Order name: IV Saline Lock; Complete Time: 15:29 sp3 06/21 15:04 Order name: Labs collected and sent; Complete Time: 15:29 sp3 06/21 15:04 Order name: O2 Per Protocol; Complete Time: 15:28 sp3 06/21 15:04 Order name: O2 Sat Monitoring; Complete Time: 15:28 sp3 06/21 15:04 Order name: CT Chest For PE Angio; Complete Time: 16:02 3 06/21 16:19 Order name: Platelets, Leukored Pheresis [facility] 06/21 17:15 Order name: COVID-19 SARS RT PCR (Document "Date of Onset" if Symptomatic) bd Administered Medications: No medications were administered Disposition Summary: 06/21/21 16:29 Hospitalization Ordered Hospitalization Status: Observation sp3 Provider: Prakash Smith sp3 Location: Telemetry/MedSurg (observation) sp3 Condition: Stable sp3 Problem: an acute exacerbation sp3 Symptoms: are unchanged sp3 Bed/Room Type: Standard sp3 Room Assignment: 222(06/21/21 18:59) bd Diagnosis - Antineoplastic chemotherapy induced pancytopenia sp3 Forms: - Medication Reconciliation Form sp3 - SBAR form sp3 Signatures: Dispatcher [employer] EDTrice Fernandes Irene, RN RN iw Lanie Perez RN RN ll1 Edinson Mooney MD MD sp3 Corrections: (The following items were deleted from the chart) 18:59 16:29 sp3 bd
--- NOTE | 2021-06-21 17:09 | P.HP ---
Certification for Inpatient Patient admitted to: Observation With expected LOS: <2 Midnights Patient will require the following post-hospital care: Other (see consult note) Practitioner: I am a practitioner with admitting privileges, knowledge of patient current condition, hospital course, and medical plan of care. Services: Services provided to patient in accordance with Admission requirements found in Title 42 Section 412.3 of the Code of Federal Regulations Patient History Date of Service: 06/21/21 Primary Care Provider: Dr. Taylor-[place]; Oncology-Dr. Armendariz Reason for admission: Shortness of breath History of Present Illness: 76-year-old male with history of AML, hypertension, COPD, post polio syndrome. Patient actually went to the [place] clinic today. He had reported some low oxygen saturations at home over the weekend. He reports that his oxygen level was in the 40s and 50s. He had some shortness of breath. He went to the [facility] clinic. He was told that he needed to go to a special clinic to get oxygen. He decided to go to the cancer center instead. He went to the cancer center. It was noted that recent labs showed elevated liver function. His oncologist had recommended to discontinue antifungal medication that was started last week when he was hospitalized for pancytopenia. He was sent to the hospital for liver ultrasound to further evaluate. At the hospital he required further evaluation of his shortness of breath. He went to the ER for further evaluation. Daughter reports that the patient was recently hospitalized for pancytopenia. He had been given blood transfusion and platelet transfusion last week. He is on antifungal, antibacterial medication. In the ER patient was evaluated. White count 4.7, hemoglobin 7.4. Platelet count 16. Sodium 131, potassium 2.9. BUN of 17, creatinine 0.76. AST 70 ALT 79. BMP 1221. Troponin negative. Chest x-ray showed bilateral pleural effusion. CT scan reviewed showed no pulmonary embolism. Bilateral pleural effusions noted. Development of lymphadenopathy to the hilum and mediastinum noted. Patient was admitted for observation Allergies SHRIMP Allergy (Uncoded 01/19/21 09:12) Anaphylaxis Home medications list reviewed: Yes Home Medications: Cholecalciferol (Vitamin D3) [Vitamin D3] 1 cap PO DAILY 11/12/20 Fluconazole [Diflucan] 100 mg PO DAILY #7 tablet 11/12/20 Folic Acid 1 mg PO DAILY 11/12/20 Omeprazole 1 cap PO DAILY 11/12/20 Simvastatin 1 tab PO BEDTIME 11/12/20 levoFLOXacin [Levaquin] 500 mg PO DAILY #7 tab 11/12/20 Acyclovir 800 mg PO DAILY 03/24/21 Amitriptyline HCl 50 mg PO BEDTIME 03/24/21 Baclofen 10 mg PO DAILY 03/24/21 Cyanocobalamin [Vitamin B-12] 1,000 mcg PO DAILY 03/24/21 Finasteride 5 mg PO DAILY 03/24/21 Gabapentin [Neurontin] 400 mg PO TID 03/24/21 Sildenafil Citrate 100 mg PO PRN 03/24/21 Voriconazole [Vfend] 200 mg PO DAILY 03/24/21 - Past Medical/Surgical History Diabetic: No -: Hypertension -: Hyperlipidemia -: BPH -: Chronic pain -: AML -: Chronic lymphedema -: GERD -: Cholecystectomy -: Back surgery Psychosocial/ Personal History: Patient is a - Family History Family History: Reviewed- Non-Contributory - Social History Smoking Status: Former smoker Alcohol use: No CD- Drugs: No Caffeine use: Yes Place of Residence: Home Review of Systems General: Weakness, Malaise, As per HPI Eyes: Unremarkable ENT: Unremarkable Respiratory: Shortness of Breath, SOB with Excertion, As per HPI Cardiovascular: Unremarkable Gastrointestinal: Unremarkable Genitourinary: Unremarkable Musculoskeletal: Pedal edema, As per HPI Integumentary: Unremarkable Neurological: Unremarkable Lymphatics: Unremarkable Physical Examination - Studies Laboratory Data (last 24 hrs) 06/21/21 15:25: PT 16.0 H, INR 1.39 06/21/21 15:25: WBC 4.70 D, Hgb 7.4 L, Hct 22.1 L, Plt Count 16 L* 06/21/21 15:25: Sodium 131 L, Potassium 2.9 L*, BUN 17, Creatinine 0.76, Glucose 125 H, Magnesium 1.7 L, Total Bilirubin 1.0, AST 70 H, ALT 79 H, Alkaline Phosphatase 288 H Assessment and Plan - Plan COVID: pending CXR: COMPARISON: Chest Single View dated 11/11/2020 FINDINGS: Portable technique limits examination quality. Mild interstitial pulmonary opacities are present, greatest in the left lung base. Trace bilateral pleural effusions are seen. The heart is normal in size. No displaced fractures. CT Scan: COMPARISON: Thorax Wo Con dated 11/11/2020; Abdomen Pelvis W Contrast dated 11/11/2020 TECHNIQUE: CT angiogram of the pulmonary arteries was performed with MIP. All CT scans are performed using dose optimization technique as appropriate and may include automated exposure control or mA/KV adjustment according to patient size. FINDINGS: No evidence of pulmonary thromboembolism. No acute aortic finding demonstrated. Numerous air cysts are present throughout both lungs. Ground-glass opacities are seen bilaterally with small bilateral pleural effusions. Lymphadenopathy has developed in the mediastinum, both hilum and supraclavicular region. Calcified and noncalcified pleural plaques are present bilaterally. Mild thoracic spondylosis. IMPRESSION: No evidence of pulmonary thromboembolism. Development of moderate lymphadenopathy is seen in the mediastinum and hilum sin ce the comparative imaging studies. Lymphoma is a possibility and clinical correlation is recommended. Small bilateral pleural effusions are seen with multiple air cysts bilaterally. Mild interstitial pulmonary edema suspected. Calcified pleural plaquing is present bilaterally most compatible with previous asbestos exposure. Physical Exam: GENERAL: The patient is a well-developed, well-nourished, in no apparent distress. Alert and oriented x3. VITAL SIGNS: Reviewed HEENT: Head is normocephalic and atraumatic. Extraocular muscles are intact. Pupils are equal, round, and reactive to light and accommodation. Nares appeared normal. Mouth is well hydrated and without lesions. Mucous membranes are moist. NECK: Supple. No carotid bruits. No lymphadenopathy or thyromegaly. LUNGS: Clear anteriorly. Slight crackles to the bases HEART: Regular rate and rhythm, no appreciable gallops, rubs, murmurs or extra heart sounds ABDOMEN: Soft, nontender, and nondistended. Positive bowel sounds. No hepatosplenomegaly was noted. EXTREMITIES: Without any cyanosis, clubbing, rash, lesions or peripheral edema. NEUROLOGIC: Chronic lymphedema to the lower extremity. No focal deficits. SKIN: Edema to the lower extremity Impression: Dyspnea secondary to hypoxia with COPD complicated with Pulmonary edema with bilateral pleural effusions suspect diastolic CHF Thrombocytopenia with acute anemia complicated with AML Elevated liver function likely related to recent antifungal medication Chronic lymphedema Hypokalemia/hypomagnesia Hypertension Depression Recent hospitalization for pancytopenia BPH CT scan showing new development of moderate lymphedema in the mediastinum and hilum Chronic back pain Plan: Dyspnea secondary to hypoxia with COPD complicated with Pulmonary edema with bilateral pleural effusions suspect diastolic CHF: Patient will be admitted for further evaluation and treatment. Will provide oxygen to maintain sats above 93%. Continue with COPD medication. Will check echocardiogram. Patient will get Lasix after transfusion of blood and platelets. Patient may require Lasix at discharge. Will monitor closely. Social work to help arrange for oxygen at discharge. Case discussed in detail with oncology. Likely home within the next 24 hours. Thrombocytopenia with acute anemia complicated with AML: Patient will get transfusion of platelets and 2 units of blood. Case discussed in detail with oncology. Hold aspirin. Continue folic acid. Elevated liver function likely related to recent antifungal medication: Patient previously on antifungal medication. This has been discontinued by oncology. Will monitor liver function test. Chronic lymphedema: Patient with chronic lymphedema. Patient previously on hydrochlorothiazide. Patient with hypokalemia. Will replace with replacement protocol. Will likely transition from hydrochlorothiazide to Lasix. Hypokalemia, hypomagnesia: Continue electrolyte protocol. Hypertension: Continue lisinopril Depression: Continue with Elavil 50 mg daily Recent hospitalization for pancytopenia: Continue with Levaquin and acyclovir. No evidence of leukopenia at this time BPH: Continue finasteride CT scan showing new development of moderate lymphedema in the mediastinum and hilum: Case discussed with oncology. Oncology to review prior CT scan from the [place]. This may need to be further evaluated as an outpatient. Chronic back pain: Continue with baclofen as needed. Code Status: CODE STATUS addressed in detail with patient and daughter. Patient is DO NOT RESUSCITATE. DVT prophylaxis: SCD Advanced Care Planning-30 minutes: Home at discharge with possible home health. Discharge Plan: Home Plan to discharge in: 24 Hours - Advance Directives Does patient have a Living Will: No Does patient have a Durable POA for Healthcare: No - Code Status/Comfort Care Code Status Assessed: Yes (Patient is DNR) Time Spent Managing Pts Care (In Minutes): 55
[2021-06-21] MEDS ORDERED: IPRATROPIUM BROM 0.5MG/2.5ML NEB PRN (20:11)
[2021-06-21] MEDS ORDERED: ACETAMINOPHEN 500 MG TAB PO PRN (20:11)
[2021-06-21] MEDS ORDERED: DOCUSATE NA/SENNA CONC 1 TAB PO PRN (20:11)
[2021-06-21] MEDS ORDERED: BACLOFEN 10 MG TAB PO PRN (20:11)
[2021-06-21] MEDS ORDERED: ALBUTEROL 2.5 MG/3 ML NEB SOL NEB PRN (20:11)
[2021-06-21] MEDS ORDERED: ONDANSETRON 4 MG/2 ML VIAL IV PRN (20:11)
[2021-06-21] MEDS: ARFORMOTEROL TARTRATE 15 MCG/2 ML VIAL.NEB NEB SCH (20:20)
[2021-06-21] MEDS ORDERED: AMITRIPTYLINE 50 MG TAB PO SCH (21:00)
[2021-06-21] MEDS ORDERED: FINASTERIDE 5 MG TAB PO SCH (21:00)
[2021-06-21] MEDS: ACYCLOVIR 400 MG TABLET PO SCH (21:00)
[2021-06-21] MEDS ORDERED: MELATONIN 5 MG TABLET PO PRN (21:33)
[2021-06-21] MEDS ORDERED: NA CHLORIDE 0.9% 250 ML ONE (22:09)
[2021-06-21] MEDS ORDERED: FUROSEMIDE 20 MG/ 2ML VIAL IV SCH (23:45)
[2021-06-21 23:50] VITALS: BMI 24.3
[2021-06-22] MEDS ORDERED: NA CHLORIDE 0.9% 500 ML IV ONE (00:11)
[2021-06-22] MEDS ORDERED: NA CHLORIDE 0.9% 500 ML ONE (00:12)
[2021-06-22] MEDS ORDERED: NA CHLORIDE 0.9% 250 ML ONE ×2 (02:17→11:12)
[2021-06-22] MEDS: KCL 20 MEQ/100 mL IVPB 20 MEQ/100 ML BAG IV SCH ×3 (02:24→04:32)
[2021-06-22 04:13] LABS: Absolute Lymphocytes (CBC) 0.2 K/uL (0.7-4.9); Basophils % 0.3 % (0-1.3); Hematocrit 22.7 % (39.6-49.0); Lymphocytes % 3.9 % (15.3-44.8); MPV 7.1 fL (7.6-11.3); RBC Red Blood Cell Count 2.68 M/uL (4.33-5.43)
[2021-06-22 04:47] LABS: ALT/SGPT 59 U/L (12-78); AST/SGOT 59 U/L (15-37); Albumin 1.7 g/dL (3.4-5.0); Alkaline Phosphatase 241 U/L (45-117); BUN Blood Urea Nitrogen 13 mg/dL (7-18); Bicarbonate 32 mmol/L (21-32); Glucose Level 115 mg/dL (74-106); Magnesium 1.6 mg/dL (1.8-2.4); Protein, Total 6.1 g/dL (6.4-8.2); Sodium Level 134 mmol/L (136-145)
[2021-06-22 04:56] LABS: Blood Morphology Comment NOT SEEN (NOT SEEN); Platelet Estimate DECR
--- NOTE | 2021-06-22 06:11 | P.PN ---
Subjective Date of Service: 06/22/21 Primary Care Provider: Dr. Taylor-[place]; Oncology-Dr. Armendariz Chief Complaint: Shortness of breath Subjective: Improving, Doing well Physical Examination - Vital Signs Temperature: 98.1 F Blood Pressure: 122/62 Pulse: 82 Respirations: 18 - Studies Laboratory Data (last 24 hrs) 06/21/21 15:25: PT 16.0 H, INR 1.39 06/21/21 15:25: WBC 4.70 D, Hgb 7.4 L, Hct 22.1 L, Plt Count 16 L* 06/21/21 15:25: Sodium 131 L, Potassium 2.9 L*, BUN 17, Creatinine 0.76, Glucose 125 H, Magnesium 1.7 L, Total Bilirubin 1.0, AST 70 H, ALT 79 H, Alkaline Phosphatase 288 H Assessment & Plan Discharge Plan: Home Plan to discharge in: 24 Hours Physician Review Additional Text: COVID: negative CXR: COMPARISON: Chest Single View dated 11/11/2020 FINDINGS: Portable technique limits examination quality. Mild interstitial pulmonary opacities are present, greatest in the left lung base. Trace bilateral pleural effusions are seen. The heart is normal in size. No displaced fractures. CT Scan: COMPARISON: Thorax Wo Con dated 11/11/2020; Abdomen Pelvis W Contrast dated 11/11/2020 TECHNIQUE: CT angiogram of the pulmonary arteries was performed with MIP. All CT scans are performed using dose optimization technique as appropriate and may include automated exposure control or mA/KV adjustment according to patient size. FINDINGS: No evidence of pulmonary thromboembolism. No acute aortic finding demonstrated. Numerous air cysts are present throughout both lungs. Ground-glass opacities are seen bilaterally with small bilateral pleural effusions. Lymphadenopathy has developed in the mediastinum, both hilum and supraclavicular region. Calcified and noncalcified pleural plaques are present bilaterally. Mild thoracic spondylosis. IMPRESSION: No evidence of pulmonary thromboembolism. Development of moderate lymphadenopathy is seen in the mediastinum and hilum since the comparative imaging studies. Lymphoma is a possibility and clinical correlation is recommended. Small bilateral pleural effusions are seen with multiple air cysts bilaterally. Mild interstitial pulmonary edema suspected. Calcified pleural plaquing is present bilaterally most compatible with previous asbestos exposure. Physical Exam: GENERAL: The patient is a well-developed, well-nourished, in no apparent distress. Alert and oriented x3. VITAL SIGNS: Reviewed HEENT: Supple LUNGS: Clear anteriorly. Better air movement bilateral. Currently on 2 L per nasal cannula. HEART: Regular rate and rhythm, no appreciable gallops, rubs, murmurs or extra heart sounds ABDOMEN: Soft, nontender, and nondistended. Positive bowel sounds. No hepatosplenomegaly was noted. EXTREMITIES: Without any cyanosis, clubbing, rash, lesions or peripheral edema. NEUROLOGIC: Chronic lymphedema to the lower extremity. No focal deficits. SKIN: Edema to the lower extremity Impression: Dyspnea secondary to hypoxia with COPD complicated with Pulmonary edema with bilateral pleural effusions suspect diastolic CHF Thrombocytopenia with acute anemia complicated with AML Elevated liver function likely related to recent antifungal medication Chronic lymphedema Hypokalemia/hypomagnesia Hypertension Depression Recent hospitalization for pancytopenia BPH CT scan showing new development of moderate lymphedema in the mediastinum and hilum Chronic back pain Plan: Dyspnea secondary to hypoxia with COPD complicated with Pulmonary edema with bilateral pleural effusions suspect diastolic CHF: Patient doing well at this time. Patient to receive blood transfusion and platelet transfusion. Will reassess after transfusion and likely discharge home. Will consider changing hydrochlorothiazide to Lasix with potassium supplementation. Case discussed with oncology. Will also arrange for home oxygen to maintain sats above 93%. Currently on 2 L per nasal cannula. Thrombocytopenia with acute anemia complicated with AML: Hemoglobin and platelet improved. Patient to get 1 unit more unit of blood. 2 units total to be given blood and 1 unit of platelets. Patient will follow up with oncology soon. Elevated liver function likely related to recent antifungal medication: Patient previously on antifungal medication. This has been discontinued by oncology. Will monitor liver function test. Chronic lymphedema: Patient with chronic lymphedema. Patient previously on hydrochlorothiazide. Patient with hypokalemia. Will replace hydrochlorothiazide with Lasix at discharge. Hypokalemia, hypomagnesia: Continue electrolyte protocol. Hypertension: Continue lisinopril Depression: Continue with Elavil 50 mg daily Recent hospitalization for pancytopenia: Continue with Levaquin and acyclovir. No evidence of leukopenia at this time BPH: Continue finasteride CT scan showing new development of moderate lymphedema in the mediastinum and hilum: Case discussed with oncology. Oncology to [facility] this will be further addressed as an outpatient with oncology Chronic back pain: Continue with baclofen as needed. Code Status: CODE STATUS addressed in detail with patient and daughter. Patient is DO NOT RESUSCITATE. DVT prophylaxis: SCD Advanced Care Planning-30 minutes: Home with home health at discharge with home oxygen Time Spent Managing Pts Care (In Minutes): 55
[2021-06-22] MEDS ORDERED: PANTOPRAZOLE 40MG TABLET PO SCH (06:30)
[2021-06-22] MEDS ORDERED: ACETAMINOPHEN 500 MG TAB PO ONE (07:00)
[2021-06-22] MEDS ORDERED: DIPHENHYDRAMINE 25 MG TAB/CAP PO ONE (07:00)
[2021-06-22] MEDS: ARFORMOTEROL TARTRATE 15 MCG/2 ML VIAL.NEB NEB SCH (08:00)
[2021-06-22] MEDS: ACYCLOVIR 400 MG TABLET PO SCH (08:11)
[2021-06-22] MEDS: GABAPENTIN 400 MG CAP PO SCH ×2 (08:11→15:34)
[2021-06-22] MEDS ORDERED: VITAMIN D 1000 UNIT TAB PO SCH ×2 (09:00)
[2021-06-22] MEDS ORDERED: levoFLOXacin 500 MG TAB PO SCH (09:00)
[2021-06-22] MEDS ORDERED: lisinopriL 5 MG TAB PO SCH (09:00)
[2021-06-22] MEDS ORDERED: CYANOCOBALAMIN 1,000 MCG TAB PO SCH ×2 (09:00)
[2021-06-22] MEDS ORDERED: FOLIC ACID 1 MG TABLET PO SCH (09:00)
[2021-06-22 09:48] VITALS: O2SAT 91
[2021-06-22] MEDS ORDERED: MAGNESIUM SULFATE 1 gm IVPB 1 GM/100 ML BAG IV ONE (12:00)
--- NOTE | 2021-06-22 13:58 | P.DS ---
Admission Date: 06/21/21 Discharge Date: 06/22/21 Primary Care Provider: Dr. Taylor-[place]; Oncology-Dr. Armendariz Disposition: DC HOME/HOME HEALTH CARE Discharge Condition: GOOD Reason for Admission: Shortness of breath Consultations: none Procedures: COVID: negative CXR: COMPARISON: Chest Single View dated 11/11/2020 FINDINGS: Portable technique limits examination quality. Mild interstitial pulmonary opacities are present, greatest in the left lung base. Trace bilateral pleural effusions are seen. The heart is normal in size. No displaced fractures. CT Scan: COMPARISON: Thorax Wo Con dated 11/11/2020; Abdomen Pelvis W Contrast dated 11/11/2020 TECHNIQUE: CT angiogram of the pulmonary arteries was performed with MIP. All CT scans are performed using dose optimization technique as appropriate and may include automated exposure control or mA/KV adjustment according to patient size. FINDINGS: No evidence of pulmonary thromboembolism. No acute aortic finding demonstrated. Numerous air cysts are present throughout both lungs. Ground-glass opacities are seen bilaterally with small bilateral pleural effusions. Lymphadenopathy has developed in the mediastinum, both hilum and supraclavicular region. Calcified and noncalcified pleural plaques are present bilaterally. Mild thoracic spondylosis. IMPRESSION: No evidence of pulmonary thromboembolism. Development of moderate lymphadenopathy is seen in the mediastinum and hilum since the comparative imaging studies. Lymphoma is a possibility and clinical correlation is recommended. Small bilateral pleural effusions are seen with multiple air cysts bilaterally. Mild interstitial pulmonary edema suspected. Calcified pleural plaquing is present bilaterally most compatible with previous asbestos exposure. Medical Problem List: Dyspnea secondary to hypoxia with COPD complicated with Pulmonary edema with bilateral pleural effusions suspect diastolic CHF Thrombocytopenia with acute anemia complicated with AML Elevated liver function likely related to recent antifungal medication Chronic lymphedema Hypokalemia/hypomagnesia Hypertension Depression Recent hospitalization for pancytopenia BPH CT scan showing new development of moderate lymphadenopathy in the mediastinum and hilum Chronic back pain COPD Brief History of Present Illness: 76-year-old male with history of AML, hypertension, COPD, post polio syndrome. Patient actually went to the [facility] clinic today. He had reported some low oxygen saturations at home over the weekend. He reports that his oxygen level was in the 40s and 50s. He had some shortness of breath. He went to the [facility] clinic. He was told that he needed to go to a special clinic to get oxygen. He decided to go to the cancer center instead. He went to the cancer center. It was noted that recent labs showed elevated liver function. His oncologist had recommended to discontinue antifungal medication that was started last week when he was hospitalized for pancytopenia. He was sent to the hospital for liver ultrasound to further evaluate. At the hospital he required further evaluation of his shortness of breath. He went to the ER for further evaluation. Daughter reports that the patient was recently hospitalized for pancytopenia. He had been given blood transfusion and platelet transfusion last week. He is on antifungal, antibacterial medication. In the ER patient was evaluated. White count 4.7, hemoglobin 7.4. Platelet count 16. Sodium 131, potassium 2.9. BUN of 17, creatinine 0.76. AST 70 ALT 79. BMP 1221. Troponin negative. Chest x-ray showed bilateral pleural effusion. CT scan reviewed showed no pulmonary embolism. Bilateral pleural effusions noted. Development of lymphadenopathy to the hilum and mediastinum noted. Patient was admitted for observation Hospital Course: Patient presented with dyspnea secondary to hypoxia related to COPD complicated with pulmonary edema and bilateral pleural effusions suspect underlying diastolic CHF. Patient was admitted for treatment. Patient received oxygen with improvement. Patient also was diuresed. Patient had been taking hydrochlorothiazide. This was switched to Lasix. During the course of his stay his condition improved. At discharge will recommend to discontinue hydrochlorothiazide. Will change to Lasix 40 mg daily. Recommend to continue 1500 cc/day fluid restriction and low-salt diet. Recommend to monitor his weight daily. If his weight increases by more than 5 pounds he is to contact his PCP for further recommendation. Further adjustment can be done by his PCP. At discharge home oxygen will be arranged. Currently on 2 L per nasal cannula. Patient will continue with home health and physical therapy at discharge. Patient also found to have thrombocytopenia with acute anemia, this is complicated with history of AML. Patient is seen by oncology. Case discussed at length with oncology. Oncology was planning to give patient blood transfusion tomorrow but this was given today. Platelet transfusion was also given. Patient given a total of 2 units of packed red blood cells and 1 unit of platelets. This has improved. Patient will follow up with oncology this week to recheck labCBC. Continue to follow-up with oncology for further recommendation. Patient with elevated liver function. This was likely related to recent antifungal medication. Antifungal medication has been discontinued. Patient with hypokalemia and hypomagnesia. At discharge since the patient will be using Lasix the patient will continue with Klor-Con 20 mEq daily along with magnesium 400 mg daily. Recommend to recheck labCMP and magnesium within 1 week to monitor his progress. Further adjustment can be done by his PCP. Patient with history of hypertension. At discharge patient will continue with lisinopril 2.5 mg daily. Recommend to maintain blood pressure less than 130/80. Hold blood pressure medication if blood pressure systolic less than 110. Further adjustment can be done by his PCP. Patient with depression. At discharge patient will continue with Elavil 50 mg daily. Patient with recent hospitalization for pancytopenia. Patient is to continue his medication Levaquin and acyclovir. No evidence of leukopenia at this time. Patient with BPH. At discharge patient will continue with finasteride [address] scan showed new development of moderate lymphadenopathy in the mediastinum and hilum. This can be further evaluated as an outpatient with oncology. Patient with history of chronic back pain. Patient will continue with baclofen as needed. Patient will continue with his other medications including aspirin 81 mg daily, folic acid 1 mg daily, stool softener daily, and vitamin B12. Patient with COPD. At discharge patient will continue with Spiriva 1 puff daily and albuterol as needed for shortness of breath Vital Signs/Physical Exam: Temp Pulse Resp BP Pulse Ox 98.1 F 82 18 122/62 97 06/22/21 13:52 06/22/21 13:52 06/22/21 13:52 06/22/21 13:52 06/22/21 12:00 General: Alert, In no apparent distress, Oriented x3, Cooperative HEENT: Atraumatic Neck: Supple Respiratory: Other (Currently on 2 L per nasal cannula. Clear anteriorly) Cardiovascular: Normal pulses, Regular rate/rhythm Gastrointestinal: No ascites, No tenderness, No masses, No rebound, No guarding Integumentary: Other (Chronic lymphedema to the lower extremities) Neurological: Normal speech, Normal strength at 5/5 x4 extr, Normal tone Laboratory Data at Discharge: WBC 4.10 K/uL (4.3-10.9) L 06/22/21 03:55 Hgb 7.9 g/dL (13.6-17.9) L 06/22/21 03:55 Hct 22.7 % (39.6-49.0) L 06/22/21 03:55 Plt Count 26 K/uL (152-406) L* D 06/22/21 03:55 PT 16.0 SECONDS (9.5-12.5) H 06/21/21 15:25 INR 1.39 06/21/21 15:25 Sodium 134 mmol/L (136-145) L 06/22/21 03:55 Potassium 3.1 mmol/L (3.5-5.1) L 06/22/21 11:53 BUN 13 mg/dL (7-18) 06/22/21 03:55 Creatinine 0.68 mg/dL (0.55-1.3) 06/22/21 03:55 Glucose 115 mg/dL (74-106) H 06/22/21 03:55 Magnesium 1.6 mg/dL (1.8-2.4) L 06/22/21 03:55 Total Bilirubin 1.0 mg/dL (0.2-1.0) 06/22/21 03:55 AST 59 U/L (15-37) H 06/22/21 03:55 ALT 59 U/L (12-78) 06/22/21 03:55 Alkaline Phosphatase 241 U/L (45-117) H 06/22/21 03:55 Home Medications: Cholecalciferol (Vitamin D3) [Vitamin D3] 2 cap PO DAILY 11/12/20 Folic Acid 1 mg PO DAILY 11/12/20 Omeprazole 1 cap PO DAILY 11/12/20 levoFLOXacin [Levaquin*] 500 mg PO DAILY #7 tab 11/12/20 Acyclovir 400 mg PO BID 03/24/21 Amitriptyline HCl 50 mg PO BEDTIME 03/24/21 Baclofen 10 mg PO TID 03/24/21 Cyanocobalamin [Vitamin B-12*] 1,000 mcg PO DAILY 03/24/21 Finasteride 5 mg PO DAILY 03/24/21 Sildenafil Citrate 100 mg PO PRN 03/24/21 Calcium Carbonate [Tums Regular*] 500 mg PO TID PRN 06/22/21 Furosemide [Lasix] 40 mg PO DAILY #30 tab 06/22/21 Gabapentin [Neurontin*] 400 mg PO TID cap 06/22/21 LIDOCAINE 2% JELLY, 5mL [Xylocaine 2% Jelly*] 5 ml MM QIDP PRN 06/22/21 Lactulose [Cephulac*] 20 gm PO QID PRN 06/22/21 Lisinopril [Zestril] 2.5 mg PO DAILY 06/22/21 Magnesium Oxide [Mag 0X Tab] 400 mg PO DAILY #30 tab 06/22/21 Ondansetron [Ondansetron Odt] 8 mg PO TIDP PRN 06/22/21 Potassium Chloride [Klor-Con M20] 20 meq PO DAILY #30 tab.er.prt 06/22/21 Sennosides 8.6 mg PO BID 06/22/21 Tiotropium [Spiriva Handihaler*] 18 mcg IH DAILY 06/22/21 Venetoclax [Venclexta] 100 mg PO DAILY 06/22/21 New Medications: Potassium Chloride [Klor-Con M20] 20 meq PO DAILY #30 tab.er.prt Furosemide [Lasix] 40 mg PO DAILY #30 tab Magnesium Oxide [Mag 0X Tab] 400 mg PO DAILY #30 tab Physician Discharge Instructions: Patient presented with dyspnea secondary to hypoxia related to COPD complicated with pulmonary edema and bilateral pleural effusions suspect underlying diastolic CHF. Patient was admitted for treatment. Patient received oxygen with improvement. Patient also was diuresed. Patient had been taking hydrochlorothiazide. This was switched to Lasix. During the course of his stay his condition improved. At discharge will recommend to discontinue hydrochlorothiazide. Will change to Lasix 40 mg daily. Recommend to continue 1500 cc/day fluid restriction and low-salt diet. Recommend to monitor his weight daily. If his weight increases by more than 5 pounds he is to contact his PCP for further recommendation. Further adjustment can be done by his PCP. At discharge home oxygen will be arranged. Currently on 2 L per nasal cannula. Patient will continue with home health and physical therapy at discharge. Patient also found to have thrombocytopenia with acute anemia, this is complicated with history of AML. Patient is seen by oncology. Case discussed at length with oncology. Oncology was planning to give patient blood transfusion tomorrow but this was given today. Platelet transfusion was also given. Patient given a total of 2 units of packed red blood cells and 1 unit of platelets. This has improved. Patient will follow up with oncology this week to recheck labCBC. Continue to follow-up with oncology for further recommendation. Patient with elevated liver function. This was likely related to recent antifungal medication. Antifungal medication has been discontinued. Patient with hypokalemia and hypomagnesia. At discharge since the patient will be using Lasix the patient will continue with Klor-Con 20 mEq daily along with magnesium 400 mg daily. Recommend to recheck labCMP and magnesium within 1 week to monitor his progress. Further adjustment can be done by his PCP. Patient with history of hypertension. At discharge patient will continue with lisinopril 2.5 mg daily. Recommend to maintain blood pressure less than 130/80. Hold blood pressure medication if blood pressure systolic less than 110. Further adjustment can be done by his PCP. Patient with depression. At discharge patient will continue with Elavil 50 mg daily. Patient with recent hospitalization for pancytopenia. Patient is to continue his medication Levaquin and acyclovir. No evidence of leukopenia at this time. Patient with BPH. At discharge patient will continue with finasteride [address] scan showed new development of moderate lymphadenopathy in the mediastinum and hilum. This can be further evaluated as an outpatient with oncology. Patient with history of chronic back pain. Patient will continue with baclofen as needed. Patient will continue with his other medications including aspirin 81 mg daily, folic acid 1 mg daily, stool softener daily, and vitamin B12. Patient with COPD. At discharge patient will continue with Spiriva 1 puff daily. Patient also uses albuterol inhaler as needed. Diet: AHA Activity: Fall precautions Followup: OOTOOT [Primary Care Provider] - Time spent managing pt's care (in minutes): 55
[2021-06-22 15:37] VITALS: BP 121/59; TEMP 99
[2021-06-22 18:17] LABS: Hematocrit 27.2 % (39.6-49.0)
--- NOTE | 2021-06-23 11:26 | EKG ---
Test Date: 2021-06-21 Test Time: 15:24:10 Pharmacology Associate: MARK MEASUREMENT RESULTS: Intervals: Rate: 81 AK: 128 QRSD: 100 QT: 382 QTc: 443 [place]: P: 36 AK: 128 QRS: 12 T: 45 INTERPRETIVE STATEMENTS: Sinus rhythm with frequent premature ventricular complexes Otherwise normal ECG Compared to ECG 11/16/2020 10:29:54 Incomplete right bundle-branch block no longer present Myocardial infarct finding no longer present Electronically Signed On 06-23-21 11:20:57 PIE FILLER by Roderick Prieto
--- OUTSIDE RECORDS SUMMARY | 2021-06-26 16:29 | XMS REPORT | Continuity of Care Document ---
:1945 Author Organization [facility] t Address [address] [place] [address] Care Team Providers Name Role Phone Latosha MEDRANO Attending Clinician Doctor Unassigned, Name Attending Clinician Unavailable 1, Lab Attending Clinician Unavailable Cliff Gilmore DO Attending Clinician Payers Payer Name Policy Type Policy Number Effective Date Expiration Date S ource Problems This patient has no known problems. Allergies, Adverse Reactions, Alerts This patient has no known allergies or adverse reactions. Social History Social Habit Start Date Stop Date Quantity Comments Source Sex Assigned At [facility] History of tobacco Cigarette Smoker [facility] Cigarettes smoked 2019-07-26 2019-07-26 Univers ity of current (pack per 00:00:00 00:00:00 ) - Reported Branch Smoking Status Start Date Stop Date Source Unknown if ever smoked [facility] Current every day smoker 2019-07-26 00:00:00 Uni versity [facility] Medications Ordered Filled Start Stop Current Ordering Indication Dosage Frequency Signature Comments Components Source Medication Medication Date Date Medication? Clinician (SIG) Name Name simvastatin 2018-08 Yes 40mg Take 40 mg Univers 40 mg 2-13 by mouth. ity of tablet 19:12: [address] hydroCHLORO 2018-08 Yes 25mg Take 25 mg Univers thiazide 25 2-13 by mouth. ity of mg tablet 19:12: [address] baclofen 20 2018-08 Yes 20mg Take 20 mg Univers mg tablet 2-13 by mouth. ity o f 19:12: [address] lisinopril 2018-08 Yes 2.5mg Take 2.5 Un michelle 2.5 mg 2-13 mg by ity of tablet 19:12: mouth. [address] gabapentin 2018- Yes 400mg Take 400 Un michelle 400 mg 2-13 mg by ity of capsule 19:12: mouth. [address] vitamin 2018- Yes Take by [facility] s B-12 500 2-13 mouth. ity of mcg tablet 19:12: [address] aspirin-paula 2018- Yes 81mg Take 81 mg Univers cium 2-13 by mouth. ity of carbonate 19:12: [place] 81 mg-[address] [place] [address] mg Branch calcium(777 mg) Tab vit 2018- Yes Take by Univers A,C,E-zinc- 2-13 mouth. ity of copper 19:12: [place] (OCUVITE [address] [place] [address] [facility] 7,160-113-1 00 unit-mg-uni t Tab finasteride 2018- Yes 5mg Take 5 mg U nivers 5 mg tablet 2-13 by mouth ity of 19:12: daily. [address] simvastatin 2018- Yes 40mg Take 40 mg Univers 40 mg 2-13 by mouth. ity of tablet 19:12: [address] hydroCHLORO 2018- Yes 25mg Take 25 mg Univers thiazide 25 2-13 by mouth. ity of mg tablet 19:12: [address] baclofen 20 2018- Yes 20mg Take 20 mg Univers mg tablet 2-13 by mouth. ity o f 19:12: [address] lisinopril 2018- Yes 2.5mg Take 2.5 Un michelle 2.5 mg 2-13 mg by ity of tablet 19:12: mouth. [address] gabapentin 2018- Yes 400mg Take 400 Un michelle 400 mg 2-13 mg by ity of capsule 19:12: mouth. [address] vitamin 2019- Yes Take by [facility] B-12 500 2-13 mouth. ity of mcg tablet 19:12: [address] aspirin-paula 2018- Yes 81mg Take 81 mg Univers cium 2-13 by mouth. ity of carbonate 19:12: [place] 81 mg-[address] [place] [address] mg Branch calcium(777 mg) Tab vit 2018- Yes Take by Univers A,C,E-zinc- 2-13 mouth. ity of copper 19:12: [place] (OCUVITE [address] [facility] PRESERVIS Branch N) 7,160-113-1 00 unit-mg-uni t Tab finasteride 2018-08 Yes 5mg Take 5 mg U nivers 5 mg tablet 2-13 by mouth ity of 19:12: daily. [address] tiotropium 2018-08 Yes [id number] 18ug Inhale 1 Univers 18 mcg 2-13 capsule ity of inhalation 00:00: daily. [place] 00 [facility] tiotropium 2018-08 Yes [id number] 18ug Inhale 1 Univers 18 mcg 2-13 capsule ity of inhalation 00:00: daily. [place] 00 [facility] amitriptyli 2019- No 50mg Take 50 mg Univers ne 50 mg 05-07 by mouth. ity o f tablet 00:00: 04:59 [place] 00 :00 [facility] amitriptyli 2019- No 50mg Take 50 mg Univers ne 50 mg 05-07 by mouth. ity o f tablet 00:00: 04:59 [place] 00 :00 [facility] Procedures Procedure Date / Time Performing Clinician Source Performed CT LOW DOSE LUNG NODULE 2019-09-05 14:50:00 Jorge Reina [facility] ASSIGNMENT OF BENEFITS 2019-09-05 14:36:40 Doctor Unassigned, No [facility] Name Medical Branch PHOSPHORUS 2019-05-02 15:35:00 Rafael Gilmore [facility] URIC ACID 2019-05-02 15:35:00 Rafael Gilmore [facility] MAGNESIUM 2019-05-02 15:35:00 Rafael Gilmore [facility] PROSTATIC SPECIFIC 2019-05-02 15:35:00 Rafael Gilmore [facility] ANTIGEN SCREEN [facility] FREE T4 2019-05-02 15:35:00 Rafael Gilmore [facility] THYROID STIMULATING 2019-05-02 15:35:00 Rafael Gilmore [facility] HORMONE [facility] COMP. METABOLIC PANEL 2019-05-02 15:35:00 Rafael Gilmore [facility] ([id number]) [facility] LIPID PANEL 2019-05-02 15:35:00 Rafael Gilmore [facility] ([id number])(TOTAL Medical Branch CHOLESTEROL, TRIGLYCERIDES, HDL) CBC WITH DIFFERENTIAL 2019-05-02 15:35:00 Rafael Gilmore [facility] GLYCOSYLATED HEMOGLOBIN 2019-05-02 15:35:00 Rafael Gilmore [facility] (A1C) [facility] URINALYSIS 2019-05-02 15:35:00 Rafael Gilmore [facility] N-TERMINAL PRO-BNP 2019-05-02 15:35:00 Rafael Gilmore [facility] Encounters Start End Encounter Admission Attending Care Care Encounter Source Date/Time Date/Time Type Type Clinicians Facility Department ID 2020-11-20 2020-11-20 Outpatient [facility] MED [id number] [facility] 11:19:00 11:19:00 2019-09-05 2019-09-05 [facility] 1.2.840.114 [id number] 08:41:00 23:59:00 Encounter Jorge Quintero [id number] [place] 4.2.7.2.686 [place] [id number] 2019-09-05 2019-09-05 [facility] 1.2.840.114 [id number] Univers 08:41:00 23:59:00 Encounter Jorge Quintero 350.1.13.10 ity of [place] 4.2.7.2.686 [facility] [id number] [facility] [address] 2019-09-05 2019-09-05 Orders Doctor TRUJILLO 1.2.840.114 [id number] 00:00:00 00:00:00 Only Unassigned, RUDDY 350.1.13.10 [place] [facility] 4.2.7.2.686 [id number] 2019-09-05 2019-09-05 Orders Doctor CASSANDRA [id number] Univers 00:00:00 00:00:00 Only Unassigned, RUDDY 350.1.13.10 ity of [place] [facility] 4.2.7.2.686 [facility] [id number] [facility] 009 Branch 2019-05-02 2019-05-02 Photograph Inspector 1, [facility] 1.2.840.114 [id number] 10:09:47 10:24:47 Visit Ingrid 350.1.13.10 [place] 4.2.7.2.686 [place] [id number] 2019-05-02 2019-05-02 Photograph Inspector 1, Adc Lab [facility] 1.2.840.114 [id number] [facility] 10:09:47 10:24:47 Visit Rafael Gilmore 350.1.13.10 ity of [place] 4.2.7.2.686 [facility] [id number] [facility] 353 Branch Results Test Description Test Test Results Result Source Time Comments Comments CT LUNG NODULE 2019-08- Nearly completely Uni versity of 23 resolved abnormal [place] [facility] 15:08:08 findings in the right Bra nch andleft upper lobe with minimal residual groundglass haziness seen at thistime. No significant change in bilateral obstructive pulmonary disease,nodular pleural thickening in the left lower chest and scattered calcifiedand noncalcified chronic pleural disease in both thorax. Lung RADS Category 2-S. Recommendation: Continue with annual screening Patti Kitchen, VIVI Yin, PIO Valdez, et al. Guidelines for Management ofIncidental Pulmonary Nodules Detected on CT Images: From the [facility] 2017. Radiology. DOI: http://dx.doi.org/10.11 48/radiol.2586093592oks p://pubs.rsna.org/doi/a bs/10.1148/radiol.64875 89116Wfjkln schematic: http://bit.ly/2sikjMt Category 2 ? ? Negative screen - nodules with benign appearance or behavior- continue annual screening in 12 months ?S modifier ? ? Other clinically significant or potentially significantfindings PROCEDURE: CT CHEST NON CONTRAST ? LUNG CANCER SCREENING. CLINICAL INDICATION: Lung nodule, >=1cm COMPARISON: None. TECHNIQUE: Low dose helical CT was acquired from lung apices to bases wasobtained and reconstructed at 1 mm, without intravenous contrast. MIP andcoronal & sagittal MPR images were generated and reviewed. (DFOV = 42.3cm) FINDINGS: Lower neck/thyroid: Unremarkable. Lungs: Previously described abnormal findings in anterior right upper lobehas essentially completely resolved with minimal residual groundglasshaziness seen at this time.Hazy nodule in the left apical lung is nearly completely resolved withminimal residual groundglass haziness detected this time. Multiple pleural-based nodules in the left lower chest again noted,unchanged.Obstruc tive lung disease with numerous emphysematous bulla are seenthroughout both lungs. Chronic bilateral pleural disease noted withmultiple calcified as well as noncalcified pleural plaques in both rightand left thorax. Central airway: Unremarkable. Pleura: No pleural effusion, thickening or pneumothorax. Thoracic aorta and great vessels: Classic arch anatomy. Normal in diameter.Mild atherosclerotic disease affects the visualized aorta. Pulmonary arteries: Unremarkable. Pain pulmonary artery is 26 mm. Heart and pericardium: Moderate atherosclerosis with calcifications in LADcoronary, main coronary and circumflex coronary arteries. Unremarkablecardiac morphology and pericardium. Lymph nodes: Scattered 1 cm or smaller size lymph nodes, unchanged. Mediastinum: Unremarkable. Thoracic spine and chest wall: Unremarkable, with normal thoracic vertebralbody heights. Other Lines/Tubes/Devices/Perry dware: None Visualized upper abdomen: Moderate sized hiatal hernia. S/Pcholecystectomy. Possible 1 cm cyst in the dorsal surface near the upperpole of the right kidney. [facility], Radiant Results Inft User - 09/05/2019 9:09 AM CSTPROCEDURE: CT CHEST NON CONTRAST ? LUNG CANCER SCREENING.CLINICAL INDICATION: Lung nodule, >=1cm COMPARISON: None.TECHNIQUE: Low dose helical CT was acquired from lung apices to bases wasobtained and reconstructed at 1 mm, without intravenous contrast. MIP andcoronal & sagittal MPR images were generated and reviewed. (DFOV = 42.3cm)FINDINGS:Lower neck/thyroid: Unremarkable.Lungs: Previously described abnormal findings in anterior right upper lobehas essentially completely resolved with minimal residual groundglasshaziness seen at this time.Hazy nodule in the left apical lung is nearly completely resolved withminimal residual groundglass haziness detected this time.Multiple pleural-based nodules in the left lower chest again noted,unchanged.Obstruc tive lung disease with numerous emphysematous bulla are seenthroughout both lungs. Chronic bilateral pleural disease noted withmultiple calcified as well as noncalcified pleural plaques in both rightand left thorax.Central airway: Unremarkable.Pleura: No pleural effusion, thickening or pneumothorax.Thoracic aorta and great vessels: Classic arch anatomy. Normal in diameter.Mild atherosclerotic disease affects the visualized aorta.Pulmonary arteries: Unremarkable. Pain pulmonary artery is 26 mm.Heart and pericardium: Moderate atherosclerosis with calcifications in LADcoronary, main coronary and circumflex coronary arteries. Unremarkablecardiac morphology and pericardium.Lymph nodes: Scattered 1 cm or smaller size lymph nodes, unchanged.Mediastinum: Unremarkable.Thoracic spine and chest wall: Unremarkable, with normal thoracic vertebralbody heights.Other Lines/Tubes/Devices/Perry dware: NoneVisualized upper abdomen: Moderate sized hiatal hernia. S/Pcholecystectomy. Possible 1 cm cyst in the dorsal surface near the upperpole of the right kidney. IMPRESSI ONNearly completely resolved abnormal findings in the right andleft upper lobe with minimal residual groundglass haziness seen at thistime. No significant change in bilateral obstructive pulmonary disease,nodular pleural thickening in the left lower chest and scattered calcifiedand noncalcified chronic pleural disease in both thorax. Lung RADS Category 2-S. Recommendation: Continue with annual screening MacM Patti new, VIVI Yin, PIO Valdez, et al. Guidelines for Management ofIncidental Pulmonary Nodules Detected on CT Images: From the [facility] 2017. Radiology. DOI: http://dx.doi.org/10.11 48/radiol.9425522056nao p://pubs.rsna.org/doi/a bs/10.1148/radiol.82952 98802Mkohoj schematic: http://bit.ly/2sikjMtCa tegory 2 ? Negative screen - nodules with benign appearance or behavior- continue annual screening in 12 months S modifier ? Other clinically significant or potentially significantfindings THYROID STIMULATING HORMONE 2019-05-02 17:07:00 Test Item Value Reference Range Interpretation Comme nts TSH (test code = 9165094160) See_Comment [Automated message] The system which generated this result transmitted ref erence range: 0.45 - 4.70 mIU/L. T he reference range was not used to interpret this result as marimar l/abnormal. Lab Interpretation (test code = Normal 37177-3) [facility] CenterPRO[facility] SPECIFIC ANTIGEN [id number] 17:07:00 Test Item Value Reference Range Interpretation Comments PSA (test code = 1.33 ng/mL See_Comment [Automated 5110530647) message] The system which generated this result transmitted reference range : <=4.00. The reference range was not used to interpret this result as normal/abnormal . SHEILA (test code = SHEILA) Biotin has been reported to cause a negative bias, interpret results relative to patient's use of biotin. Lab Interpretation Normal (test code = 11284-6) [facility] CenterFREE [id number] 16:54:00 Test Item Value Reference Range Interpretation Comments FREE T4 (test code = 1338373535) 0.89 ng/dL 0.78-2.2 Lab Interpretation (test code = Normal 37334-9) [facility] CenterN-TERMINAL [id number] 16:46:00 Test Item Value Reference Range Interpretation Comments NT-proBNP (test code 64 pg/mL See_Comment [Autom ated = 5200062788) message] The system which generated this result transmitted reference range : <=125. The reference range was not used to interpret this result as normal/abnormal . SHEILA (test code = SHEILA) Biotin has been reported to cause a negative bias, interpret results relative to patient's use of biotin. Lab Interpretation Normal (test code = 99138-9) [facility] CenterGLYCOSYLATED HEMOGLOBIN (A1C)2019-05-02 16:41:00 Test Item Value Reference Interpretation Comments Range HGB A1C (test code = See_Comment [Autom ated 4548-4) message] The system which generated this result transmitted reference range : 4.0 - 6.0 % NGSP. The reference range was not used to interpret this result as normal/abnormal . SHEILA (test code = %A1C (NGSP) SHEILA) Interpretation (ADA)4.8-5.6? Normal or (Non-Diabetic Range)5.7-6.4? Increased Risk (Pre-Diabetic)>6.5?D iabetes Indicated Lab Interpretation Normal (test code = 14578-9) [facility] CenterLIPID PANEL (58379)(TOTAL CHOLESTEROL, TRIGLYCERIDES, HDL)2019-05-02 16:38:00 Test Item Value Reference Range Interpretation Comments CHOL (test code = 146 mg/dL 120-200 3703648300) HDL (test code = 38 mg/dL >40 L 4533922621) HDLC RATIO (test code = See_Comment [Au tomated message] 3634795623) The system FIXO generated this result transmit mario reference range : <=5.0. The refe rence range was not u sed to interpret th is result as normal/abnormal . TRIG (test code = 100 mg/dL 30-170 9044483618) LDL CHOL (test code = 88 mg/dL See_Comment [Auto mated message] 75134-9) The system FIXO generated this result transmit mario reference range : <=160. The refe rence range was not u sed to interpret th is result as normal/abnormal . VLDL (test code = 20 mg/dL 5-60 0529122937) Lab Interpretation (test Abnormal code = 57247-5) [facility] CenterMAGNESIUM2019-09-19 16:38:00 Test Item Value Reference Range Interpretation Comments MAGNESIUM (test code = 2037369968) 2.1 mg/dL 1.7-2.4 Lab Interpretation (test code = Normal 71334-1) [facility] CenterPHOSPHORUS2019-09-19 16:37:00 Test Item Value Reference Range Interpretation Comments PHOSPHORUS (test code = 3775520663) 3.1 mg/dL 2.5-5 Lab Interpretation (test code = Normal 16765-4) [facility] CenterURIC [id number] 16:37:00 Test Item Value Reference Range Interpretation Comments URIC ACID (test code = 9998559765) 5.9 mg/dL 3.6-8 Lab Interpretation (test code = Normal 04756-4) [facility] CenterCOMP. METABOLIC PANEL (21935)2019-05-02 16:37:00 Test Item Value Reference Range Interpretation Comments NA (test code = 142 mmol/L 135-145 3182163209) K (test code = 4.6 mmol/L 3.5-5 0200449582) CL (test code = 106 mmol/L 98-108 8319289048) CO2 TOTAL (test code = 28 mmol/L 23-31 7017929883) AGAP (test code = 2-16 4537799384) BUN (test code = 18 mg/dL 7-23 0449731390) GLUCOSE (test code = 84 mg/dL 70-110 6654686237) CREATININE (test code 0.77 mg/dL 0.6-1.25 = 6674783554) TOTAL BILI (test code 0.3 mg/dL 0.1-1.1 = 7474247436) CALCIUM (test code = 9.1 mg/dL 8.6-10.6 8268690165) T PROTEIN (test code = 6.6 g/dL 6.3-8.2 4403836942) ALBUMIN (test code = 4.1 g/dL 3.5-5 5277866735) ALK PHOS (test code = 69 U/L 34-122 8604566513) ALT(SGPT) (test code = 33 U/L 9-51 4233000122) AST(SGOT) (test code = 24 U/L 13-40 3268482506) eGFR Calculation mL/min/1.73m2 (Non-) (test code = 8822228043) eGFR Calculation mL/min/1.73m2 () (test code = 8961703608) SHEILA (test code = SHEILA) Association of Glomerular Filtration Rate (GFR) and Staging of Kidney Disease*+ ---------+ --------+ +| GFR (mL/min/1.73 m2)?| With Kidney Damage?|?Without Kidney Damage+ -------+ ------+ ---------+|?>90?|?Stage one?|? Normal?+ --------+ -------+ +|?60-89?|?St age two?|? Decreased GFR? + -+ + ---+|?30-59?|?Stage three?|? Stage three? + -+ + ---+|?15-29?|?Stage four? |? Stage four?+ ------+ -----+ --------+|?<15 (or dialysis)?|?Stage five? |? Stage five?+ ------+ -----+ --------+*Each stage assumes the associated GFR level has been in effect for at least three months.?Stages 1 to 5, with or without kidney disease, indicate chronic kidney disease.Notes: Determination of stages one and two (with eGFR >59mL/min/1.73 m2) requires estimation of kidney damage for at least three months as defined by structural or functional abnormalities of the kidney, manifested by either:Pathological abnormalities or Markers of kidney damage (including abnormalities in the composition of the blood or urine or abnormalities in imaging tests). [facility] CenterURINALYSIS2019-09-19 16:10:00 Test Item Value Reference Range Interpretation Comments APPEARANCE (test code = Clear Clear 4451397594) COLOR (test code = Straw Yellow A 3545518828) PH (test code = 4.8-8.0 5355905762) SP GRAVITY (test code = 1.003-1.030 1191048140) GLU U QUAL (test code = Normal Normal 9128663205) BLOOD (test code = Negative Negative 7998609468) KETONES (test code = Negative Negative 5099804226) PROTEIN (test code = Negative Negative 2887-8) UROBILIN (test code = Normal Normal 5460071499) BILIRUBIN (test code = Negative Negative 9583584439) NITRITE (test code = Negative Negative 4039573708) LEUK SURESH (test code = Negative Negative 9217298755) RBC/HPF (test code = See_Comment [Autom ated message] 3450617115) The system FIXO generated this result transmitted ref erence range: 0 - 3 HP F. The reference range was not used to int erpret this result as normal/abnormal . WBC/HPF (test code = See_Comment [Autom ated message] 6861491475) The system FIXO generated this result transmitted ref erence range: 0 - 5 HP F. The reference range was not used to int erpret this result as normal/abnormal . BACTERIA (test code = Negative Negative 7063988381) MUCOUS (test code = Slight Negative LPF A 6584493408) SQ EPITH (test code = <1 HPF 5667596062) Lab Interpretation (test Abnormal code = 61449-1) [facility] CenterCB WITH [id number] 15:43:00 Test Item Value Reference Range Interpretation Comments WBC (test code = See_Comment [Automated 4990-2) message] The sy stem which generated this result transmitted reference range : 4.20 - 10.70 10*3/?L. The reference range was not used to interpret this result as normal/abnormal . RBC (test code = See_Comment L [Automated 789-8) message] The sy stem which generated this result transmitted reference range : 4.26 - 5.52 10*6/?L. The reference range was not used to interpret this result as normal/abnormal . HGB (test code = 13.6 g/dL 12.2-16.4 718-7) HCT (test code = 41.2 % 38.4-49.3 4544-3) MCV (test code = 98.6 fL 81.7-95.6 H 787-2) MCH (test code = 32.5 pg 26.1-32.7 785-6) MCHC (test code = 33.0 g/dL 31.2-35 786-4) RDW-SD (test code = 54.0 fL 38.5-51.6 H 95225-6) RDW-CV (test code = 15.2 % 12.1-15.4 788-0) PLT (test code = See_Comment [Automated 777-3) message] The sy stem which generated this result transmitted reference range : 150 - 328 10*3/ ?L. The reference r ching was not used to interpret this result as normal/abnormal . MPV (test code = 10.9 fL 9.8-13 72194-4) NRBC/100 WBC (test See_Comment [Automat ed code = 6316927583) message] The system which generated this result transmitted reference range : 0.0 - 10.0 /100 WBCs. The refer ence range was not u sed to interpret th is result as normal/abnormal . NRBC x10^3 (test code <0.01 See_Comment [Auto mated = 4850051125) message] The s ystem which generated this result transmitted reference range : 10*3/?L. The reference range was not used to interpret this result as normal/abnormal . GRAN MAT (NEUT) % 62.8 % (test code = 770-8) IMM GRAN % (test code 0.30 % = 4587564891) LYMPH % (test code = 21.0 % 736-9) MONO % (test code = 7.8 % 5905-5) EOS % (test code = 6.5 % 713-8) BASO % (test code = 1.6 % 706-2) GRAN MAT x10^3(ANC) 4.34 10*3/uL 1.99-6.95 (test code = 2961287801) IMM GRAN x10^3 (test <0.03 0-0.06 code = 9564170573) LYMPH x10^3 (test code 1.45 10*3/uL 1.09-3.23 = 731-0) MONO x10^3 (test code 0.54 10*3/uL 0.36-1.02 = 742-7) EOS x10^3 (test code = 0.45 10*3/uL 0.06-0.53 711-2) BASO x10^3 (test code 0.11 10*3/uL 0.01-0.09 H = 704-7) Lab Interpretation Abnormal (test code = 24990-2) [facility]"
== END 2021-06-22 18:06 | disposition home health service (06) ==
LOC: ER 14:37 → ERHOLD 16:51 → 2ND 19:15
PROVIDERS: ADMIT Family Medicine; ATTEND Family Medicine
DX: J44.9 Chronic obstructive pulmonary disease, unspecified (principal); R09.02 Hypoxemia; J90 Pleural effusion, not elsewhere classified; D69.6 Thrombocytopenia, unspecified; C92.00 Acute myeloblastic leukemia, not having achieved remission; R79.89 Other specified abnormal findings of blood chemistry; I89.0 Lymphedema, not elsewhere classified; E87.6 Hypokalemia; E83.42 Hypomagnesemia; I10 Essential (primary) hypertension; F32.A Depression, unspecified; N40.0 Benign prostatic hyperplasia without lower urinary tract symptoms; R59.0 Localized enlarged lymph nodes; M54.9 Dorsalgia, unspecified; Z20.822 Contact with and (suspected) exposure to COVID-19; Z91.013 Allergy to seafood
CPT/HCPCS: 36430; 93005; 85025 ×2; 80048; 36415; 86900; 83735 ×2; 86850; 84132; 85610; 86901; 80076; 84443; 85018; 85014; 84484; 84439; 80053; 83880; 71275; 71045; 97116; 97161; 97530; 99285; U0003; J1940; J3480 ×3; J3475; J7605 ×2; G0378 ×2; P9035; P9016 ×2; J7050 ×3; J7040 ×2

== ENCOUNTER 2021-06-29 07:20 | Day surgery (SDC) | payer OTHER ==
[2021-06-29 08:43] VITALS: BMI 27.1
[2021-06-29 08:44] VITALS: O2SAT 94
[2021-06-29] MEDS ORDERED: NA CHLORIDE 0.9% 250 ML ONE (14:05)
[2021-06-29 15:31] LABS: Absolute Lymphocytes (CBC) 0.2 K/uL (0.7-4.9); Basophils % 0.1 % (0-1.3); Hematocrit 25.9 % (39.6-49.0); Lymphocytes % 4.2 % (15.3-44.8); MPV 8.1 fL (7.6-11.3); RBC Red Blood Cell Count 3.01 M/uL (4.33-5.43)
[2021-06-29 19:23] VITALS: BP 105/50; TEMP 99.4
== END 2021-06-29 15:20 | disposition home or self-care (01) ==
LOC: DS 07:20
PROVIDERS: ATTEND Internal Medicine Medical Oncology
DX: C92.00 Acute myeloblastic leukemia, not having achieved remission (principal); D61.818 Other pancytopenia
CPT/HCPCS: 85025; 36415; 86900; 86850; 86901; 36430; P9035; P9016 ×2; J7050; P9100

== ENCOUNTER 2021-07-05 11:09 | Inpatient (IN) | payer OTHER ==
--- OUTSIDE RECORDS SUMMARY | 2021-07-05 11:13 | XMS REPORT | Continuity of Care Document ---
:1945 Author Organization [facility] t Address [address] [place] [address] Care Team Providers Name Role Phone Latosha [...] Source Sex Assigned At [facility] History of tobacco Cigarette Smoker [facility] Cigarettes smoked 2019-07-26 2019-07-26 Univers ity of current (pack per 00:00:00 00:00:00 ) - Reported Branch Smoking Status Start Date Stop Date Source Unknown if ever smoked [facility] Current every day smoker 2019-07-26 00:00:00 Uni versity [facility] Medications Ordered Filled Start Stop Current Ordering Indication Dosage Frequency Signature Comments Components Source Medication Medication Date Date Medication? Clinician (SIG) Name Name simvastatin 2018-08 Yes 40mg Take 40 mg Univers 40 mg 2-13 by mouth. ity of tablet 19:12: [address] hydroCHLORO 2018-08 Yes 25mg Take 25 mg Univers thiazide 25 2-13 by mouth. ity of mg tablet 19:12: [address] baclofen 20 2018-08 Yes 20mg Take 20 mg Univers mg tablet 2-13 by mouth. ity o f 19:12: [address] lisinopril 2018-08 Yes 2.5mg Take 2.5 Un michelle 2.5 mg 2-13 mg by ity of tablet 19:12: mouth. [address] gabapentin 2018- Yes 400mg Take 400 Un michelle 400 mg 2-13 mg by ity of capsule 19:12: mouth. [address] vitamin 2018- Yes Take by [facility] s B-12 500 2-13 mouth. ity of mcg tablet 19:12: [address] aspirin-paula 2018- Yes 81mg Take 81 mg Univers cium 2-13 by mouth. ity of carbonate 19:12: [place] 81 mg-[address] [place] [address] mg Branch calcium(777 mg) Tab vit 2018- Yes Take by Univers A,C,E-zinc- 2-13 mouth. ity of copper 19:12: [place] (OCUVITE [address] [place] [address] [facility] 7,160-113-1 00 unit-mg-uni t Tab finasteride 2018- Yes 5mg Take 5 mg U nivers 5 mg tablet 2-13 by mouth ity of 19:12: daily. [address] simvastatin 2018- Yes 40mg Take 40 mg Univers 40 mg 2-13 by mouth. ity of tablet 19:12: [address] hydroCHLORO 2018- Yes 25mg Take 25 mg Univers thiazide 25 2-13 by mouth. ity of mg tablet 19:12: [address] baclofen 20 2018- Yes 20mg Take 20 mg Univers mg tablet 2-13 by mouth. ity o f 19:12: [address] lisinopril 2018- Yes 2.5mg Take 2.5 Un michelle 2.5 mg 2-13 mg by ity of tablet 19:12: mouth. [address] gabapentin 2018- Yes 400mg Take 400 Un michelle 400 mg 2-13 mg by ity of capsule 19:12: mouth. [address] vitamin 2019- Yes Take by [facility] B-12 500 2-13 mouth. ity of mcg tablet 19:12: [address] aspirin-paula 2018- Yes 81mg Take 81 mg Univers cium 2-13 by mouth. ity of carbonate 19:12: [place] 81 mg-[address] [place] [address] mg Branch calcium(777 mg) Tab vit 2018- Yes Take by Univers A,C,E-zinc- 2-13 mouth. ity of copper 19:12: [place] (OCUVITE [facility] PRESERVIS Branch N) 7,160-113-1 00 unit-mg-uni t Tab finasteride 2018-08 Yes 5mg Take 5 mg U nivers 5 mg tablet 2-13 by mouth ity of 19:12: daily. [address] tiotropium 2018-08 Yes [id number] 18ug Inhale 1 Univers 18 mcg 2-13 capsule ity of inhalation 00:00: daily. [place] 00 [facility] tiotropium 2018-08 Yes [id number] 18ug Inhale 1 Univers 18 mcg 2-13 capsule ity of inhalation 00:00: daily. [place] 00 [facility] amitriptyli 2019- No 50mg Take 50 mg Univers ne 50 mg 05-07 by mouth. ity o f tablet 00:00: 04:59 [place] 00 :00 [facility] amitriptyli 2019- No 50mg Take 50 mg Univers ne 50 mg 05-07 by mouth. ity o f tablet 00:00: 04:59 [place] 00 :00 [facility] Procedures Procedure Date / Time Performing Clinician Source Performed CT LOW DOSE LUNG NODULE 2019-09-05 14:50:00 Jorge [facility] ASSIGNMENT OF BENEFITS 2019-09-05 14:36:40 Doctor Unassigned, No [facility] Name Medical Branch PHOSPHORUS 2019-05-02 15:35:00 Rafael Gilmore [facility] URIC ACID 2019-05-02 15:35:00 Rafael Gilmore [facility] MAGNESIUM 2019-05-02 15:35:00 Rafael Gilmore [facility] PROSTATIC SPECIFIC 2019-05-02 15:35:00 Rafael Gilmore [facility] ANTIGEN SCREEN [facility] FREE T4 2019-05-02 15:35:00 Rafael Gilmore [facility] THYROID STIMULATING 2019-05-02 15:35:00 Rafael Gilmore [facility] HORMONE [facility] COMP. METABOLIC PANEL 2019-05-02 15:35:[address] [facility] ([id number]) [facility] LIPID PANEL 2019-05-02 15:35:00 Rafael Gilmore [facility] ([id number])(TOTAL Medical Branch CHOLESTEROL, TRIGLYCERIDES, HDL) CBC WITH DIFFERENTIAL 2019-05-02 15:35:00 [facility] GLYCOSYLATED HEMOGLOBIN 2019-05-02 15:35:00 [facility] (A1C) [facility] URINALYSIS 2019-05-02 15:35:00 Rafael Gilmore [facility] N-TERMINAL PRO-BNP 2019-05-02 15:35:00 Rafael Gilmore [facility] Encounters Start End Encounter Admission Attending Care Care Encounter Source Date/Time Date/Time Type Type Clinicians Facility Department ID 2020-11-20 2020-11-20 Outpatient [facility] MED [id number] [facility] 11:19:00 11:19:00 2019-09-05 2019-09-05 [facility] 1.2.840.114 [id number] 08:41:00 23:59:00 Encounter Jorge Quintero [id number] [place] 4.2.7.2.686 [place] [id number] 2019-09-05 2019-09-05 [facility] 1.2.840.114 [id number] Univers 08:41:00 23:59:00 Encounter Jorge Quintero [id number] ity of [place] 4.2.7.2.686 [facility] [id number] [facility] [address] [place] 2019-09-05 2019-09-05 Orders Doctor TRUJILLO 1.2.840.114 [id number] 00:00:00 00:00:00 Only Unassigned, RUDDY [id number] [place] [facility] 4.2.7.2.686 [id number] 2019-09-05 2019-09-05 Orders Doctor CASSANDRA [id number] Univers 00:00:00 00:00:00 Only Unassigned, RUDDY [id number] ity of [place] [facility] 4.2.7.2.686 [facility] [id number] [facility] 009 Branch 2019-05-02 2019-05-02 Stitch Burnisher 1, [facility] 1.2.840.114 [id number] 10:09:47 10:24:47 Visit Ingrid 350.1.13.10 [place] 4.2.7.2.686 [place] [id number] 2019-05-02 2019-05-02 Stitch Burnisher 1, Adc Lab [facility] 1.2.840.114 [id number] [facility] 10:09:47 10:24:47 Visit Rafael Gilmore 350.1.13.10 ity of [place] 4.2.7.2.686 [facility] [id number] [facility] 353 Branch Results Test Description Test Test [...] Nodules Detected on CT Images: From the [facility] 2017. Radiology. DOI: http://dx.doi.org/10.11 48/radiol.6319636520jzn p://pubs.rsna.org/doi/a bs/10.1148/radiol.62675 24829Dupsve schematic: http://bit.ly/2sikjMt Category 2 ? ? Negative [...] Nodules Detected on CT Images: [facility] 2017. Radiology. DOI: http://dx.doi.org/10.11 48/radiol.7851858812gcz p://pubs.rsna.org/doi/a bs/10.1148/radiol.29775 06736Iwlsxr schematic: http://bit.ly/2sikjMtCa tegory 2 ? Negative screen - nodules with benign appearance or behavior- continue annual screening in 12 months S modifier ? Other clinically significant or potentially significantfindings THYROID STIMULATING HORMONE 2019-05-02 17:07:00 Test Item Value Reference Range Interpretation Comme nts TSH (test code = 6333701033) See_Comment [Automated message] The system which generated this result transmitted ref erence range: 0.45 - 4.70 mIU/L. T he reference range was not used to interpret this result as marimar l/abnormal. Lab Interpretation (test code = Normal 74538-2) [facility] SPECIFIC ANTIGEN [id number] 17:07:00 Test Item Value Reference Range Interpretation Comments PSA (test code = 1.33 ng/mL See_Comment [Automated 8337463583) message] The system which generated this result transmitted reference range : <=4.00. The reference range was not used to interpret this result as normal/abnormal . SHEILA (test code = SHEILA) Biotin has been reported to cause a negative bias, interpret results relative to patient's use of biotin. Lab Interpretation Normal (test code = 24230-3) [facility] [id number] 16:54:00 Test Item Value Reference Range Interpretation Comments FREE T4 (test code = 3103315022) 0.89 ng/dL 0.78-2.2 Lab Interpretation (test code = Normal 85552-9) [facility] Hospital[facility]-TERMINAL [id number] 16:46:00 Test Item Value Reference Range Interpretation Comments NT-proBNP (test code 64 pg/mL See_Comment [Autom ated = 8833186063) message] The system which generated this result transmitted reference range : <=125. The reference range was not used to interpret this result as normal/abnormal . SHEILA (test code = SHEILA) Biotin has been reported to cause a negative bias, interpret results relative to patient's use of biotin. Lab Interpretation Normal (test code = 34878-8) [facility] HospitalGLYCOSYLATED HEMOGLOBIN (A1C)2019-05-02 16:41:00 Test Item Value Reference [...] Indicated Lab Interpretation Normal (test code = 95971-5) [facility] HospitalLIPID PANEL (13447)(TOTAL CHOLESTEROL, TRIGLYCERIDES, HDL)2019-05-02 16:38:00 Test Item Value Reference Range Interpretation Comments CHOL (test code = 146 mg/dL 120-200 9646427745) HDL (test code = 38 mg/dL >40 L 9286590196) HDLC RATIO (test code = See_Comment [Au tomated message] 2607705337) The system [employer] generated this result transmit mario reference range : <=5.0. The refe rence range was not u sed to interpret th is result as normal/abnormal . TRIG (test code = 100 mg/dL 30-170 0736427387) LDL CHOL (test code = 88 mg/dL See_Comment [Auto mated message] 20634-1) The system [employer] generated this result transmit mario reference range : <=160. The refe rence range was not u sed to interpret th is result as normal/abnormal . VLDL (test code = 20 mg/dL 5-60 2453939181) Lab Interpretation (test Abnormal code = 36547-3) [facility] HospitalMAGNESIUM2019-09-19 16:38:00 Test Item Value Reference Range Interpretation Comments MAGNESIUM (test code = 5866976370) 2.1 mg/dL 1.7-2.4 Lab Interpretation (test code = Normal 36054-8) [facility] HospitalPHOSPHORUS2019-09-19 16:37:00 Test Item Value Reference Range Interpretation Comments PHOSPHORUS (test code = 6677467289) 3.1 mg/dL 2.5-5 Lab Interpretation (test code = Normal 72746-1) [facility] HospitalURIC [id number] 16:37:00 Test Item Value Reference Range Interpretation Comments URIC ACID (test code = 6933670044) 5.9 mg/dL 3.6-8 Lab Interpretation (test code = Normal 47760-0) [facility] HospitalCOMP. METABOLIC PANEL (38543)2019-05-02 16:37:00 Test Item Value Reference Range Interpretation Comments NA (test code = 142 mmol/L 135-145 7407868626) K (test code = 4.6 mmol/L 3.5-5 3915536171) CL (test code = 106 mmol/L 98-108 7187729843) CO2 TOTAL (test code = 28 mmol/L 23-31 4031736060) AGAP (test code = 2-16 3902423716) BUN (test code = 18 mg/dL 7-23 5755878450) GLUCOSE (test code = 84 mg/dL 70-110 1199820135) CREATININE (test code 0.77 mg/dL 0.6-1.25 = 4759708744) TOTAL BILI (test code 0.3 mg/dL 0.1-1.1 = 9123414379) CALCIUM (test code = 9.1 mg/dL 8.6-10.6 8656476138) T PROTEIN (test code = 6.6 g/dL 6.3-8.2 5333302032) ALBUMIN (test code = 4.1 g/dL 3.5-5 4172710500) ALK PHOS (test code = 69 U/L 34-122 9651490422) ALT(SGPT) (test code = 33 U/L 9-51 5687715935) AST(SGOT) (test code = 24 U/L 13-40 8873448729) eGFR Calculation mL/min/1.73m2 (Non-) (test code = 5358334320) eGFR Calculation mL/min/1.73m2 () (test code = 0186863167) SHEILA (test code = SHEILA) Association of [...] or urine or abnormalities in imaging tests). [facility] HospitalURINALYSIS2019-09-19 16:10:00 Test Item Value Reference Range Interpretation Comments APPEARANCE (test code = Clear Clear 3175073527) COLOR (test code = Straw Yellow A 7301671235) PH (test code = 4.8-8.0 9072802226) SP GRAVITY (test code = 1.003-1.030 3453952787) GLU U QUAL (test code = Normal Normal 0787648344) BLOOD (test code = Negative Negative 6085512273) KETONES (test code = Negative Negative 2607394499) PROTEIN (test code = Negative Negative 2887-8) UROBILIN (test code = Normal Normal 5955136622) BILIRUBIN (test code = Negative Negative 5304034304) NITRITE (test code = Negative Negative 5584033059) LEUK SURESH (test code = Negative Negative 2768593796) RBC/HPF (test code = See_Comment [Autom ated message] 3904038722) The system [employer] generated this result transmitted ref erence range: 0 - 3 HP F. The reference range was not used to int erpret this result as normal/abnormal . WBC/HPF (test code = See_Comment [Autom ated message] 0347231465) The system [employer] generated this result transmitted ref erence range: 0 - 5 HP F. The reference range was not used to int erpret this result as normal/abnormal . BACTERIA (test code = Negative Negative 4432370178) MUCOUS (test code = Slight Negative LPF A 1978087134) SQ EPITH (test code = <1 HPF 5490949600) Lab Interpretation (test Abnormal code = 46101-9) [facility] HospitalCB WITH [id number] 15:43:00 Test Item Value Reference Range Interpretation Comments WBC (test code = See_Comment [Automated 1390-2) message] The sy stem which generated this [...] (test code = 54.0 fL 38.5-51.6 H 58807-0) RDW-CV (test code = 15.2 % 12.1-15.4 788-0) PLT (test code = See_Comment [Automated 777-3) message] The sy stem which generated this result transmitted reference range : 150 - 328 10*3/ ?L. The reference r ching was not used to interpret this result as normal/abnormal . MPV (test code = 10.9 fL 9.8-13 91612-5) NRBC/100 WBC (test See_Comment [Automat ed code = 0104458909) message] The system which generated this result transmitted reference range : 0.0 - 10.0 /100 WBCs. The refer ence range was not u sed to interpret th is result as normal/abnormal . NRBC x10^3 (test code <0.01 See_Comment [Auto mated = 5006787538) message] The s ystem which generated this result transmitted reference range : 10*3/?L. The reference range was not used to interpret this result as normal/abnormal . GRAN MAT (NEUT) % 62.8 % (test code = 770-8) IMM GRAN % (test code 0.30 % = 5612229358) LYMPH % (test code = 21.0 % 736-9) MONO % (test code = 7.8 % 5905-5) EOS % (test code = 6.5 % 713-8) BASO % (test code = 1.6 % 706-2) GRAN MAT x10^3(ANC) 4.34 10*3/uL 1.99-6.95 (test code = 0149221528) IMM GRAN x10^3 (test <0.03 0-0.06 code = 6935813236) LYMPH x10^3 (test code 1.45 10*3/uL 1.09-3.23 = 731-0) MONO x10^3 (test code 0.54 10*3/uL 0.36-1.02 = 742-7) EOS x10^3 (test code = 0.45 10*3/uL 0.06-0.53 711-2) BASO x10^3 (test code 0.11 10*3/uL 0.01-0.09 H = 704-7) Lab Interpretation Abnormal (test code = 64455-0) [facility]"
[2021-07-05 13:17] LABS: Absolute Lymphocytes (CBC) 0.1 K/uL (0.7-4.9); Lymphocytes % 10.4 % (15.3-44.8); MPV 11.2 fL (7.6-11.3); RBC Red Blood Cell Count 2.07 M/uL (4.33-5.43)
[2021-07-05 13:19] LABS: Protime INR 1.28
[2021-07-05 13:30] LABS: Hematocrit 17.9 % (39.6-49.0)
--- NOTE | 2021-07-05 13:32 | RAD REPORT ---
EXAM DESCRIPTION: [place] Single View07/05/2021 1:20 pm CLINICAL HISTORY: sob COMPARISON: June 21, 2021 FINDINGS: Bilateral calcified pleural plaques. Very small bilateral pleural effusions Lungs appear clear of acute infiltrate. Heart is mildly enlarged. Mediastinal and hilar lymphadenopat hy again demonstrated
[2021-07-05 13:38] LABS: ALT/SGPT 54 U/L (12-78); AST/SGOT 46 U/L (15-37); Albumin 1.7 g/dL (3.4-5.0); Alkaline Phosphatase 214 U/L (45-117); BUN Blood Urea Nitrogen 18 mg/dL (7-18); Bicarbonate 32 mmol/L (21-32); Bilirubin Direct 0.4 mg/dL (0-0.2); Bilirubin Total 0.9 mg/dL (0.2-1.0); Glucose Level 144 mg/dL (74-106); Magnesium 2.2 mg/dL (1.8-2.4); NT PRO-BNP 504 pg/mL (<450); Potassium 4.2 mmol/L (3.5-5.1); Protein, Total 5.9 g/dL (6.4-8.2); Sodium Level 135 mmol/L (136-145); Troponin (Emerg Dept Use Only) < 0.02 ng/mL (0.0-0.045)
--- NOTE | 2021-07-05 14:47 | EDPHYS ---
Physician Documentation [facility] Name: Devendra Fair Age: 76 yrs Sex: Male : 1945 Arrival Date: 07/05/2021 Time: 11:11 Bed 23 Private MD: ED Physician Samuel Cabrera HPI: 07/05 12:39 This 76 yrs old Male presents to ER via Wheelchair with complaints of Abnormal Lab pm1 Results - needs blood transfusion. 12:39 Patient presenting to the ER with a request for transfusion of blood products, PRBC 2 pm1 units and platelets 1 unit per his oncologist. Patient had labs drawn with his oncologist today and was instructed to report to the ER for blood products. Severity of symptoms: Pain is currently a 0 / 10. The patient has experienced similar episodes in the past, a few times. The patient has been recently seen by a physician: an oncologist. Patient does report some shortness of breath and occasional chest pain. Patient reports his shortness of breath and chest pain are at a baseline to what he experiences on a regular basis prior to lab draw with his oncologist today. Patient with no other complaints except for transfusion request. Historical: - Allergies: 12:00 No Known Allergies; aa5 - PMHx: 12:00 Chronic pain; enlarged prostate; GERD; High Cholesterol; Hypertension; Leukemia; aa5 Chemotherapy; - Immunization history:: Adult Immunizations unknown. - Social history:: Smoking status: Patient/guardian denies using tobacco. ROS: 12:39 Constitutional: Negative for fever, chills, and weight loss. pm1 12:39 Abdomen/GI: Negative for abdominal pain, nausea, vomiting, diarrhea, and constipation, Back: Negative for injury and pain, MS/Extremity: Negative for injury and deformity, Skin: Negative for injury, rash, and discoloration, Neuro: Negative for headache, weakness, numbness, tingling, and seizure. 12:39 ENT: Positive for nose bleed, from his nasal canula. 12:39 Respiratory: Positive for shortness of breath, Negative for cough. 12:39 All other systems are negative. Exam: 12:39 Constitutional: This is a well developed, well nourished patient who is awake, alert, pm1 and in no acute distress. Head/Face: Normocephalic, atraumatic. 12:39 Skin: Warm, dry with normal turgor. Normal color with no rashes, no lesions, and no evidence of cellulitis. MS/ Extremity: Pulses equal, no cyanosis. Neurovascular intact. Full, normal range of motion. 12:39 Eyes: 12:39 Eyes: Extraocular movements: no acute changes, Conjunctiva: pale, bilaterally, Sclera: no acute changes, icterus, is not appreciated. 12:39 Cardiovascular: Exam negative for acute changes, Rate: normal, Rhythm: regular, Pulses: no pulse deficits are appreciated, Edema: pedal edema, that is mild. 12:39 Respiratory: Exam negative for acute changes, shortness of breath, Breath sounds: are clear throughout. 12:39 Neuro: Exam negative for acute changes, Orientation: is normal, Mentation: is normal, Motor: is normal, moves all fours. Vital Signs: 11:59 BP 105 / 57; Pulse 68; Resp 16 S; Temp 97.5(TE); Pulse Ox 100% on R/A; Weight 86.18 kg aa5 (R); Height 6 ft. 0 in. (182.88 cm); 20:59 BP 101 / 54; Pulse 110; Resp 22; Pulse Ox 95% on R/A; bb 11:59 Body Mass Index 25.77 (86.18 kg, 182.88 cm) aa5 MDM: 12:24 Patient medically screened. pm1 14:38 Physician consultation: Matthew Martinez was contacted at 14:38, regarding admission, pm1 patient's condition, and will see patient. 14:45 Data reviewed: vital signs. Data interpreted: Pulse oximetry: on room air is 100 %. pm1 Interpretation: normal. 14:45 Counseling: I had a detailed discussion with the patient and/or guardian regarding: the pm1 historical points, exam findings, and any diagnostic results supporting the discharge/admit diagnosis, lab results, radiology results, the need for further work-up and treatment in the hospital. 07/05 12:26 Order name: Basic Metabolic Panel; Complete Time: 13:45 pm1 07/05 12:26 Order name: CBC with Diff; Complete Time: 16:54 pm1 07/05 12:26 Order name: LFT's; Complete Time: 13:45 pm1 07/05 12:26 Order name: Magnesium; Complete Time: 13:45 pm1 07/05 12:26 Order name: NT PRO-BNP; Complete Time: 13:45 pm1 07/05 12:26 Order name: PT-INR; Complete Time: 13:36 pm1 07/05 12:26 Order name: Troponin (emerg Dept Use Only); Complete Time: 13:45 pm1 07/05 12:26 Order name: Type And Screen pm1 07/05 12:49 Order name: Bb Add On bd 07/05 13:26 Order name: Packed RBC Leukored EDMS 07/05 13:27 Order name: Platelets, Leukored Pheresis EDMS 07/05 13:31 Order name: CBC Smear Scan; Complete Time: 16:54 EDMS 07/05 15:22 Order name: SARS-COV-2 RT PCR; Complete Time: 16:54 EDMS 07/05 12:26 Order name: XRAY Chest (1 view); Complete Time: 13:36 pm1 07/05 12:26 Order name: EKG; Complete Time: 12:27 pm1 07/05 12:26 Order name: Cardiac monitoring; Complete Time: 12:39 pm1 07/05 12:26 Order name: EKG - Nurse/Tech; Complete Time: 12:39 pm1 07/05 12:26 Order name: IV Saline Lock; Complete Time: 12:59 pm1 07/05 12:26 Order name: Labs collected and sent; Complete Time: 12:59 pm1 07/05 12:26 Order name: O2 Per Protocol; Complete Time: 12:39 pm1 07/05 12:26 Order name: O2 Sat Monitoring; Complete Time: 12:39 pm1 Administered Medications: No medications were administered Disposition: 07/06 12:41 Co-signature as Attending Physician, Samuel Cabrera MD I agree with the assessment and kdr plan of care. Disposition Summary: 07/05/21 14:46 Hospitalization Ordered Hospitalization Status: Observation pm1 Provider: Matthew Martinez pm1 Condition: Stable pm1 Problem: new pm1 Symptoms: have improved pm1 Bed/Room Type: Standard pm1 Location: Telemetry/MedSurg (observation)(07/05/21 18:37) dw Room Assignment: [facility](07/05/21 18:37) dw Diagnosis - Antineoplastic chemotherapy induced pancytopenia pm1 Forms: - Medication Reconciliation Form pm1 - SBAR form pm1 Signatures: Dispatcher [employer] EDMariel Frank, MARIAN FONSECA Samuel Cabrera MD MD kdr Williams, Irene, RN RN iw Rossi Lewis RN RN aa5 Jacinto Jaimes NP COMPUTER SECURITY COORDINATOR pm1 Corrections: (The following items were deleted from the chart) 07/05 14:42 12:39 Patient does report some shortness of breath and occasional chest pain. Patient pm1 reports his shortness of breath and chest pain are at a baseline to what he experiences on a regular basis prior to lab draw with his oncologist today. pm1 15:22 12:50 CORONAVIRUS+MR.LAB.BRZ ordered. [facility] 17:52 14:46 Telemetry/MedSurg (observation) pm1 iw 17:52 14:46 pm1 iw 18:37 17:52 [facility] ER HOLD [facility] 18:37 17:52 ERHOLD- [facility]
--- NOTE | 2021-07-05 14:47 | ER ---
Nurse's Notes [facility] Name: Devendra Fair Age: 76 yrs Sex: Male : 1945 Arrival Date: 07/05/2021 Time: 11:11 Bed 23 Private MD: Diagnosis: Antineoplastic chemotherapy induced pancytopenia Presentation: 07/05 11:59 Chief complaint: Pt's family reports his platelet count is low and low hemoglobin of aa5 6.4, sent here by [facility] for transfusions. Coronavirus screen: At this time, the client does not indicate any symptoms associated with coronavirus-19. Ebola Screen: No symptoms or risks identified at this time. Initial Sepsis Screen: Does the patient meet any 2 criteria? No. Patient's initial sepsis screen is negative. Does the patient have a suspected source of infection? No. Patient's initial sepsis screen is negative. Risk Assessment: Do you want to hurt yourself or someone else? Patient reports no desire to harm self or others. Onset of symptoms was July 05, 2021. 11:59 Acuity: NANCY 3 aa5 11:59 Method Of Arrival: Wheelchair aa5 Historical: - Allergies: 12:00 No Known Allergies; aa5 - PMHx: 12:00 Chronic pain; enlarged prostate; GERD; High Cholesterol; Hypertension; Leukemia; aa5 Chemotherapy; - Immunization history:: Adult Immunizations unknown. - Social history:: Smoking status: Patient/guardian denies using tobacco. Assessment: 21:01 Reassessment: report called to [facility] for room 212. bb Vital Signs: 11:59 BP 105 / 57; Pulse 68; Resp 16 S; Temp 97.5(TE); Pulse Ox 100% on R/A; Weight 86.18 kg aa5 (R); Height 6 ft. 0 in. (182.88 cm); 20:59 BP 101 / 54; Pulse 110; Resp 22; Pulse Ox 95% on R/A; bb 11:59 Body Mass Index 25.77 (86.18 kg, 182.88 cm) aa5 ED Course: 11:11 Patient arrived in ED. as 11:59 Arm band placed on. aa5 12:00 Triage completed. 5 12:11 Sharda Starks, MARIAN is Primary Nurse. [facility] 12:17 Jacinto Jaimes NP is PHCP. pm1 12:17 Samuel Cabrera MD is Attending Physician. pm1 13:09 Bb Add On Sent. jh5 13:09 Basic Metabolic Panel Sent. jh5 13:09 CBC with Diff Sent. jh5 13:09 LFT's Sent. jh5 13:09 Magnesium Sent. jh5 13:09 NT PRO-BNP Sent. jh5 13:09 PT-INR Sent. jh5 13:20 XRAY Chest (1 view) In Process Unspecified. EDMS 14:46 Matthew Martinez is Hospitalizing Provider. pm1 15:55 SARS-COV-2 RT PCR Sent. jh5 Administered Medications: No medications were administered Outcome: 14:46 Decision to Hospitalize by Provider. pm1 21:56 Patient left the ED. bb Signatures: Dispatcher [employer] EDME Jammie Wallis Brenda, RN RN bb Rossi Lewis RN RN aa5 Jacinto Jaimes, RUTH EMBOSSING MACHINE TENDER pm1 Sharda Starks, RN RN jh5
[2021-07-05] MEDS ORDERED: NA CHLORIDE 0.9% 500 ML ONE (15:01)
--- NOTE | 2021-07-05 16:00 | P.HP ---
Certification for Inpatient Patient admitted to: Inpatient With expected LOS: >2 Midnights Practitioner: I am a practitioner with admitting privileges, knowledge of patient current condition, hospital course, and medical plan of care. Services: Services provided to patient in accordance with Admission requirements found in Title 42 Section 412.3 of the Code of Federal Regulations Patient History Date of Service: 07/05/21 Reason for admission: Shortness of breath History of Present Illness: 76-year-old man with a history of AML currently undergoing chemotherapy was referred to the emergency department due to pancytopenia with a platelet count of 0.5 and anemia with a hemoglobin of 5. Patient is complaining of shortness of breath. He also reports experiencing epistaxis. His oncologist Dr. Armendariz recommended to transfuse 2 units of platelets and 2 unit PRBC. His platelet count in the ED is 6 and hemoglobin of 6.1. WBC is 0.8 with absolute neutrophil count of 700. Patient denies any fever, denies any cough, denies any nausea vomiting or diarrhea. 2 units of apheresed platelets ordered as well as 2 units of PRBC transfusion. Patient is admitted for further management. Allergies SHRIMP Allergy (Uncoded 01/19/21 09:12) Anaphylaxis Home Medications: Cholecalciferol (Vitamin D3) [Vitamin D3] 2 cap PO DAILY 11/12/20 Folic Acid 1 mg PO DAILY 11/12/20 Omeprazole 1 cap PO DAILY 11/12/20 levoFLOXacin [Levaquin*] 500 mg PO DAILY #7 tab 11/12/20 Acyclovir 400 mg PO BID 03/24/21 Amitriptyline HCl 50 mg PO BEDTIME 03/24/21 Baclofen 10 mg PO TID 03/24/21 Cyanocobalamin [Vitamin B-12*] 1,000 mcg PO DAILY 03/24/21 Finasteride 5 mg PO DAILY 03/24/21 Sildenafil Citrate 100 mg PO PRN 03/24/21 Calcium Carbonate [Tums Regular*] 500 mg PO TID PRN 06/22/21 Furosemide [Lasix] 40 mg PO DAILY #30 tab 06/22/21 Gabapentin [Neurontin*] 400 mg PO TID cap 06/22/21 LIDOCAINE 2% JELLY, 5mL [Xylocaine 2% Jelly*] 5 ml MM QIDP PRN 06/22/21 Lactulose [Cephulac*] 20 gm PO QID PRN 06/22/21 Lisinopril [Zestril] 2.5 mg PO DAILY 06/22/21 Magnesium Oxide [Mag 0X Tab] 400 mg PO DAILY #30 tab 06/22/21 Ondansetron [Ondansetron Odt] 8 mg PO TIDP PRN 06/22/21 Potassium Chloride [Klor-Con M20] 20 meq PO DAILY #30 tab.er.prt 06/22/21 Sennosides 8.6 mg PO BID 06/22/21 Tiotropium [Spiriva Handihaler*] 18 mcg IH DAILY 06/22/21 Venetoclax [Venclexta] 100 mg PO DAILY 06/22/21 - Past Medical/Surgical History Diabetic: No -: Hypertension -: Hyperlipidemia -: BPH -: Chronic pain -: AML -: Chronic lymphedema -: GERD -: Cholecystectomy -: Back surgery Psychosocial/ Personal History: Patient is a - Social History Alcohol use: No CD- Drugs: No Caffeine use: Yes Review of Systems Other: Except as documented, all other systems reviewed and negative. Physical Examination - Physical Exam General: Alert, In no apparent distress, Oriented x3 HEENT: Atraumatic, PERRLA, Mucous membr. moist/pink, Sclerae nonicteric Neck: Supple, JVD not distended Respiratory: Clear to auscultation bilaterally, Normal air movement Cardiovascular: No edema, Regular rate/rhythm, Normal S1 S2, No murmurs Capillary refill: <2 Seconds Gastrointestinal: Normal bowel sounds, Soft and benign, Non-distended, No tenderness Musculoskeletal: No swelling, No tenderness Integumentary: No rashes, No cyanosis Neurological: Normal speech, Normal strength at 5/5 x4 extr, Cranial nerves 3-12 intact Lymphatics: No axilla or inguinal lymphadenopathy - Studies Laboratory Data (last 24 hrs) 07/05/21 13:03: PT 14.7 H, INR 1.28 07/05/21 13:03: WBC 0.80 L* D, Hgb 6.1 L*, Hct 17.9 L*, Plt Count 6 L* 07/05/21 13:03: Sodium 135 L, Potassium 4.2, BUN 18, Creatinine 0.66, Glucose 144 H, Magnesium 2.2 D, Total Bilirubin 0.9, AST 46 H, ALT 54, Alkaline Phosphatase 214 H Assessment and Plan - Problems (Diagnosis) (1) Pancytopenia Current Visit: Yes Status: Acute (2) AML (acute myeloid leukemia) Current Visit: Yes Status: Acute (3) Epistaxis Current Visit: Yes Status: Acute (4) Thrombocytopenia Current Visit: Yes Status: Acute - Plan Admit patient to the medical floor. Neutropenic precautions. Start IV normal saline. Transfuse apheresed platelet to keep platelet count greater than 20. Transfuse 2 unit PRBC. Consult to hematology. Prophylactic IV antibiotic given severe neutropenia. Thrombopoietin and Filgrastim per oncology. - Advance Directives Does patient have a Living Will: No Does patient have a Durable POA for Healthcare: No
[2021-07-05 16:21] LABS: Blood Morphology Comment NOTED (NOT SEEN); Platelet Estimate DECR; Poikilocytosis 1+; White Blood Cell Scan OK (OK)
[2021-07-05] MEDS ORDERED: ONDANSETRON 4 MG/2 ML VIAL IV PRN (17:19)
[2021-07-05 17:58] VITALS: BMI 25.7
[2021-07-05] MEDS ORDERED: NA CHLORIDE 0.9% 1,000 ML ONE (18:07)
[2021-07-05] MEDS: NA CHLORIDE 0.9% 1,000 ML IV SCH (18:10)
[2021-07-05] MEDS ORDERED: LACTULOSE 20 GM/30 ML UCUP PO PRN (18:46)
[2021-07-05] MEDS ORDERED: CALCIUM CARBONATE CHEW 500MG TAB PO PRN (18:46)
[2021-07-05] MEDS ORDERED: MELATONIN 5 MG TABLET PO PRN (19:49)
[2021-07-05] MEDS ORDERED: CEFEPIME 1 GM/VIAL ONE ×2 (20:13→20:23)
[2021-07-05] MEDS ORDERED: ACETAMINOPHEN 325 MG TABLET ONE (20:13)
[2021-07-05] MEDS ORDERED: ACETAMINOPHEN 500 MG TAB ONE (20:23)
[2021-07-05] MEDS ORDERED: NA CHLORIDE 0.9% 100 ML ONE ×2 (20:23→22:27)
[2021-07-05] MEDS ORDERED: MELATONIN 5 MG TABLET PO ONE (20:33)
[2021-07-05] MEDS: ACETAMINOPHEN 500 MG TAB PO PRN (20:41)
[2021-07-05] MEDS: AMITRIPTYLINE 50 MG TAB PO SCH (20:41)
[2021-07-05] MEDS: SENOSIDES 8.6 MG TAB PO SCH (20:42)
[2021-07-05] MEDS: GABAPENTIN 400 MG CAP PO SCH (20:42)
[2021-07-05] MEDS: BACLOFEN 10 MG TAB PO SCH (20:42)
[2021-07-05] MEDS ORDERED: CEFEPIME 1 GM/VIAL IV SCH (21:00)
[2021-07-05 22:20] LABS: Urine Appearance Clear (Clear); Urine Bilirubin Negative (Negative); Urine Blood Negative (Negative); Urine Color Yellow (Yellow); Urine Glucose Negative (Negative); Urine Protein 1+ (Negative)
[2021-07-05 22:21] LABS: Urine Microscopic Reflex ORDER UMIC
[2021-07-05 22:28] LABS: Urine Amorphous Sediment 2+ /HPF (NONE SEEN); Urine Bacteria <20 /HPF (NONE SEEN); Urine Mucus 1+ /HPF (NONE SEEN); Urine RBC NONE SEEN /HPF (NONE SEEN)
[2021-07-06] MEDS ORDERED: NA CHLORIDE 0.9% 100 ML ONE ×2 (03:58→21:30)
[2021-07-06] MEDS: ACETAMINOPHEN 500 MG TAB PO PRN ×4 (04:37→23:55)
[2021-07-06 06:00] LABS: Lymphocytes % 13.9 % (15.3-44.8); MPV 7.3 fL (7.6-11.3); Protime INR 1.2
--- NOTE | 2021-07-06 06:06 | P.PN ---
Date of Service: 07/06/21 Subjective: s/p 2u PRBC, reports feeling ok, has some shooting pain in posterior head - wraps around to left side, different from prior headaches no new complaints feels breathing is ok, slightly improved. denies any further bleeding ROS: 10 point ROS as noted above, otherwise negative Physical exam GEN: Alert, oriented, NAD HEENT: Normal conjunctiva, sclera anicteric CV: Regular rate and rhythm, trace edema Pulm: Nonlabored respiration on 3L NC ABD: Soft, nontender, nondistended MSK: No joint tenderness Integumentary: No rashes Neuro: Normal speech, normal affect Problem List Pancytopenia, with severe thrombocytopenia AML, on chemotherapy Epistaxis Chronic COPD Chronic lymphedema Hypertension Chronic back pain BPH s/p 2unit PRBC last night, with minimal improvement of his hemoglobin. Patient also received IV fluids of 50 an hour. Patient was dehydrated on admission. With some improvement of his platelets as well. Leukopenia worsening. Remains afebrile Continue empiric/prophylactic antibiotics given the low ANC Oncology consulted, goal hemoglobin greater than 7, suspect this is all secondary to his recent chemotherapy, this is occurred before Patient does not appear septic We will check hemolysis blood work Liver MRI ordered to follow-up on his questionable new lesions Unclear etiology of pain in patient's head, possibly from borderline hypotension and anemia. Seem to be occurring more frequent, only lasting a few seconds but severe. Will check CT brain Pain is not associated with any movement or any other trigger. Not associated with any other symptoms. No vision changes/hearing changes, no numbness/tingling. Time Spent Managing Pts Care (In Minutes): 35
[2021-07-06 06:24] LABS: BUN Blood Urea Nitrogen 15 mg/dL (7-18); Bicarbonate 29 mmol/L (21-32); Glucose Level 146 mg/dL (74-106); Magnesium 2.1 mg/dL (1.8-2.4); Potassium 3.4 mmol/L (3.5-5.1); Sodium Level 135 mmol/L (136-145)
[2021-07-06 07:56] LABS: Blood Morphology Comment NOT SEEN (NOT SEEN); Platelet Estimate DECR; White Blood Cell Scan OK (OK)
[2021-07-06] MEDS: NA CHLORIDE 0.9% 1,000 ML IV SCH (08:21)
[2021-07-06] MEDS: lisinopriL 5 MG TAB PO SCH (08:22)
[2021-07-06] MEDS: FOLIC ACID 1 MG TABLET PO SCH (08:22)
[2021-07-06] MEDS: BACLOFEN 10 MG TAB PO SCH ×3 (08:22→21:01)
[2021-07-06] MEDS: POTASSIUM CL SA 10 MEQ TAB PO SCH (08:22)
[2021-07-06] MEDS: MAGNESIUM OXIDE 400 MG TAB PO SCH (08:23)
[2021-07-06] MEDS: PANTOPRAZOLE 40MG TABLET PO SCH (08:23)
[2021-07-06] MEDS: GABAPENTIN 400 MG CAP PO SCH ×3 (08:23→21:01)
[2021-07-06] MEDS: SENOSIDES 8.6 MG TAB PO SCH ×2 (08:23→21:01)
[2021-07-06] MEDS: CYANOCOBALAMIN 1,000 MCG TAB PO SCH (08:23)
[2021-07-06] MEDS: VITAMIN D 1000 UNIT TAB PO SCH (08:23)
[2021-07-06] MEDS: FINASTERIDE 5 MG TAB PO SCH (08:23)
[2021-07-06] MEDS ORDERED: LISINOPRIL 2.5 MG PO SCH (09:00)
[2021-07-06] MEDS ORDERED: CHOLECALCIFEROL 50 MCG PO SCH (09:00)
[2021-07-06] MEDS ORDERED: Omeprazole [Omeprazole] 20 MG Capsule.Dr PO SCH (09:00)
[2021-07-06] MEDS: TIOTROPIUM 5 SPRAYS/INHALER IH SCH (09:00)
[2021-07-06] MEDS ORDERED: POTASSIUM 25 MEQ EFFERV TAB PO ONE (09:00)
[2021-07-06] MEDS ORDERED: POTASSIUM CHLORIDE 20 MEQ PO SCH (09:00)
[2021-07-06 13:46] LABS: RBC Red Blood Cell Count 1.19 M/uL (4.33-5.43)
[2021-07-06 14:59] LABS: Albumin 1.4 g/dL (3.4-5.0); Bilirubin Direct 0.6 mg/dL (0-0.2); Protein, Total 5.2 g/dL (6.4-8.2)
[2021-07-06] MEDS ORDERED: VANCOMYCIN/NS 1 gm 1 GM/250 ML BAG IVPB SCH (17:45)
[2021-07-06] MEDS ORDERED: VANCOMYCIN 2.25 GM in NA CHLORIDE 0.9% 500 ML IVPB ONE (18:00)
[2021-07-06] MEDS ORDERED: ACYCLOVIR INJ 400 MG in NA CHLORIDE 0.9% 100 ML IVPB SCH (18:00)
--- NOTE | 2021-07-06 18:09 | RAD REPORT ---
EXAM DESCRIPTION: RAD - Chest Single View - 07/06/2021 6:01 pm CLINICAL HISTORY: fever COMPARISON: July 05 TECHNIQUE: AP portable chest image was obtained 07/06/2021 6:01 pm . FINDINGS: Prominent interstitial pattern is present similar to comparison. No new mass or consolidat ion. Interstitial edema and/or interstitial infiltrate could be present. No progression since prior i maging. Heart and vasculature are normal. No measurable pleural effusion and no pneumothorax. No acute bony abnormality seen. No acute aortic findings suspected. IMPRESSION: No new mass or consolidation. Prominent interstitial pattern matches comparison could in dicate interstitial edema or infiltrate. Overall, chest is not substantially different from prior day imaging.
[2021-07-06] MEDS: Meropenem 1 GM/100 ML BAG IV SCH (18:30)
--- NOTE | 2021-07-06 19:59 | RAD REPORT ---
EXAM DESCRIPTION: CT - Head Brain Wo Cont - 07/06/2021 7:02 pm CLINICAL HISTORY: new posterior headache COMPARISON: <Comparisons> TECHNIQUE: Axial 5 mm thick images of the head were obtained without IV contrast. All CT scans are performed using dose optimization technique as appropriate and may include automated exposure control or mA/KV adjustment according to patient size. FINDINGS: No intracranial hemorrhage, mass, edema or shift of mid-line structures. No acute cortical infarction. No cortical edema or sulcal effacement. Atrophy and chronic ischemic changes are present , relatively mild for age, and not significantly different from November comparison study. No abnormal e xtra-axial fluid collections. Ventricles are normal. Arterial and physiologic calcifications are pres ent. Mastoid air cells and visualized portions of the paranasal sinuses are clear. No acute bony findings. IMPRESSION: Negative non-contrast CT head examination for acute finding. No significant change from the November 2020 study.
--- NOTE | 2021-07-06 20:29 | RAD REPORT ---
EXAM DESCRIPTION: MRI - Mri Abdomen W/Wo Cont - 07/06/2021 7:51 pm CLINICAL HISTORY: liver protocol, questionable lesions COMPARISON: Chest For Pe Angio dated 06/21/2021; Liver Only dated 06/21/2021; Abdomen Pelvis W Contr ast dated 11/11/2020 TECHNIQUE: Multiplanar imaging of the liver performed using T1 weighted, T2 haste fat saturation, T2 weighted, T1 inphase/ opposed phase imaging and post contrast T1 fat saturation sequencing. A 19 mil liliter MultiHance contrast volume was utilized. A 20 minutes delayed sequence was also performed. FINDINGS: Liver is upper normal in size. Inferior right lobe extends to the level of the right kidne y. This matches prior study of October 2020. No portal vein abnormality seen. No abnormal liver capsule nodularity. In the posterior sub capsule segment VII (series 3, image 6) there is a 12 millimeter ro unded mass. In the central right lobe segment II 8 (series 3, image 12) there is a 19 millimeter oval mass. An adjacent 11 millimeter oval mass is present as well. These masses show homogeneous hyperint ense T2 signal. These liver lesions are more difficult to identify on Titus T1 weighted imaging. On postcontrast imaging the larger of the lesions shows a peripheral nodular enhancement pattern. Thi s fills an essentially on subsequent imaging and persists on the 20 minutes delayed sequence. The adj acent smaller 10 mm lesion fills and rapidly and also persists as a hyperintense focus on the delayed sequence. Similar persistent enhancement signal seen on the upper right lobe subcapsular lesion. Cameron e of the greater signal intensity relative to background liver signal intensity is due to fatty infil tration of the liver. No other significant mass lesion of the liver identified. These are believed to be the correlates to the ultrasound study. Hemangioma is believed to be the most likely etiology. The masses are not clearly different in size c ompared to the prior imaging studies. Due to differences in modality, measurements very slightly from 1 exam to the next. The CT study has a slightly smaller diameter for the dominant mass. On CT imagin g the margins are not sharply demarcated. True interval growth is not suspected. Bilateral pleural effusions are present. The pancreas, spleen, kidneys and adrenal glands show no suspicious findings. No adrenal abnormality. Lower pole right renal cyst is present. Gallbladder is absent. No biliary tree dilatation. No gross bowel abnormality. No ascites or bulky lymphadenopathy. IMPRESSION: Small rounded or oval liver lesions are present as correlates to the prior ultrasound an d CT studies. Hemangioma is believed to be the most likely etiology. Malignancy is felt to be unlikely. No history of underlying malignant process detailed. These presumed hemangiomas have shown some variability in size measurements across the 3 different im aging modalities available for correlation. True interval growth is not suspected. Slight variability can occurr due to imaging plane and image selection for measurement, measurement technique and even variability in demarcation of margins between different modalities.
[2021-07-06] MEDS: ACYCLOVIR INJ 400 MG in NA CHLORIDE 0.9% 100 ML IVPB SCH (21:00)
[2021-07-06] MEDS ORDERED: CEFEPIME 2 GM in NA CHLORIDE 0.9% 100 ML IV SCH (21:00)
[2021-07-06] MEDS: AMITRIPTYLINE 50 MG TAB PO SCH (21:01)
[2021-07-06] MEDS ORDERED: FUROSEMIDE 20 MG/ 2ML VIAL IV ONE (23:13)
[2021-07-07] MEDS: Meropenem 1 GM/100 ML BAG IV SCH ×3 (01:13→17:54)
[2021-07-07] MEDS ORDERED: NA CHLORIDE 0.9% 100 ML ONE (01:44)
[2021-07-07] MEDS: ACYCLOVIR INJ 400 MG in NA CHLORIDE 0.9% 100 ML IVPB SCH ×3 (05:10→20:55)
[2021-07-07] MEDS ORDERED: VANCOMYCIN 1.5 GM in NA CHLORIDE 0.9% 500 ML IVPB SCH (06:00)
--- NOTE | 2021-07-07 06:12 | P.PN ---
Date of Service: 07/07/21 Subjective: Febrile yesterday to 101.8. Denied any new symptoms. This morning reports feeling better. States he has fevers in the [id number] intermittently at home sometimes. Takes Tylenol and goes away Asking about discharge home Hemoglobin improved after receiving blood, platelets and white blood cell count further decreased Reports chronic, intermittent dysuria, notices change in the last several days ROS: 10 point ROS as noted above, otherwise negative Physical exam GEN: Alert, oriented, NAD HEENT: Normal conjunctiva, sclera anicteric CV: Regular rate and rhythm, trace edema Pulm: Mild labored respirations on 2 L nasal cannula, diminished at bilateral bases ABD: Soft, nontender, nondistended MSK: No joint tenderness Integumentary: No rashes Neuro: Normal speech, normal affect Problem List Pancytopenia, with severe thrombocytopenia Neutropenic fever AML, on chemotherapy Epistaxis Chronic COPD Chronic lymphedema Hypertension Chronic back pain BPH No change in hemoglobin after 2 unit PRBC. Transfuse an additional 2 unit PRBC on 07/06. Hemoglobin responded appropriately. Anemia work-up without significant hemolysis, minimal/no reticulocyte Hematology/oncology consulted, discussed case with patient's oncologist in [place] Given his resistance to transfusions, fever, and AML, both oncologist recommend transfer to [facility] in [place] Patient is agreeable Initiate transfer Blood culture, UA/urine culture obtained on 07/06 after fever Patient was started on cefepime on admission, changed to meropenem on 07/06, added acyclovir, and micafungin. ID consulted for neutropenic fever Patient with a little bit of improvement in his head pain, CT negative Liver MRI more consistent with hemangioma than malignancy Dispo: Initiate transfer to [facility] Time Spent Managing Pts Care (In Minutes): 35
[2021-07-07 07:26] LABS: Hematocrit 25.5 % (39.6-49.0); Lymphocytes % 45.4 % (15.3-44.8); MPV 8.2 fL (7.6-11.3); RBC Red Blood Cell Count 2.92 M/uL (4.33-5.43)
[2021-07-07 07:39] LABS: ALT/SGPT 66 U/L (12-78); AST/SGOT 53 U/L (15-37); Albumin 1.4 g/dL (3.4-5.0); Alkaline Phosphatase 217 U/L (45-117); BUN Blood Urea Nitrogen 11 mg/dL (7-18); Bicarbonate 28 mmol/L (21-32); Bilirubin Total 2.3 mg/dL (0.2-1.0); Glucose Level 130 mg/dL (74-106); Phosphorus 2.8 mg/dL (2.5-4.9); Potassium 3.4 mmol/L (3.5-5.1); Protein, Total 5.3 g/dL (6.4-8.2); Sodium Level 139 mmol/L (136-145)
[2021-07-07 07:47] LABS: Blood Morphology Comment NOT SEEN (NOT SEEN); Platelet Estimate DECR; White Blood Cell Scan OK (OK)
--- NOTE | 2021-07-07 08:08 | EKG ---
Test Date: 2021-07-05 Test Time: 13:00:01 Chief Executive Or Managing Director: LIZ MEASUREMENT RESULTS: Intervals: Rate: 88 CT: 146 QRSD: 98 QT: 376 QTc: 454 [place]: P: 52 CT: 146 QRS: 20 T: 73 INTERPRETIVE STATEMENTS: Normal sinus rhythm Normal ECG Compared to ECG 06/21/2021 15:24:10 Ventricular premature complex(es) no longer present Electronically Signed On 07-07-21 08:03:44 HEEL SANDER by Roderick Prieto
[2021-07-07] MEDS: TIOTROPIUM 5 SPRAYS/INHALER IH SCH (09:00)
[2021-07-07] MEDS: KCL 20 MEQ/100 mL IVPB 20 MEQ/100 ML BAG IV SCH ×2 (09:04→11:30)
[2021-07-07] MEDS: POTASSIUM CL SA 10 MEQ TAB PO SCH (09:05)
[2021-07-07] MEDS: FOLIC ACID 1 MG TABLET PO SCH (09:05)
[2021-07-07] MEDS: FUROSEMIDE 40 MG TABLET PO SCH (09:05)
[2021-07-07] MEDS: MAGNESIUM OXIDE 400 MG TAB PO SCH (09:06)
[2021-07-07] MEDS: GABAPENTIN 400 MG CAP PO SCH ×3 (09:06→20:55)
[2021-07-07] MEDS: BACLOFEN 10 MG TAB PO SCH ×3 (09:06→20:54)
[2021-07-07] MEDS: FINASTERIDE 5 MG TAB PO SCH (09:07)
[2021-07-07] MEDS: VITAMIN D 1000 UNIT TAB PO SCH (09:07)
[2021-07-07] MEDS: CYANOCOBALAMIN 1,000 MCG TAB PO SCH (09:07)
[2021-07-07] MEDS: lisinopriL 5 MG TAB PO SCH (09:07)
[2021-07-07] MEDS: SENOSIDES 8.6 MG TAB PO SCH ×2 (09:07→20:55)
[2021-07-07] MEDS: PANTOPRAZOLE 40MG TABLET PO SCH (09:08)
[2021-07-07] MEDS: ACETAMINOPHEN 500 MG TAB PO PRN ×2 (09:14→16:42)
[2021-07-07 10:02] LABS: Urine Appearance Clear (Clear); Urine Blood Negative (Negative); Urine Color Orange (Yellow); Urine Glucose Negative (Negative); Urine Protein 1+ (Negative)
[2021-07-07 10:07] LABS: Urine Bilirubin 1+ (Negative); Urine Microscopic Reflex ORDER UMIC
[2021-07-07 10:49] LABS: Calcium Oxalate Crystals- Ur FEW (NONE SEEN); Urine Amorphous Sediment 1+ /HPF (NONE SEEN); Urine Bacteria 20-50 /HPF (NONE SEEN); Urine Mucus SLIGHT /HPF (NONE SEEN); Urine RBC NONE SEEN /HPF (NONE SEEN)
[2021-07-07] MEDS ORDERED: NA CHLORIDE 0.9% 50 ML ONE (10:53)
--- NOTE | 2021-07-07 12:05 | P.CNS ---
Date of Consult: 07/07/21 Chief Complaint: Shortness of breath History of Present Illness: Patient is a 76-year-old male with a past medical history of acute myeloid leukemia currently undergoing chemotherapy--last session was this past Monday, who presented to the emergency department secondary to pancytopenia. In the ED labs were significant of a platelet count of 0.5, hemoglobin 5, and WBC of the 0.8. At the time of admission patient was complaining of shortness of breath and as such was placed on oxygen supplementation via nasal cannula. Patient follows up closely with his oncologist Dr. Armendariz. On 07/06 patient developed a fever, T-max of 101.8. Infectious disease has been consulted to manage patient's antibiotic regimen for neutropenic fever. He was empirically placed on vancomycin and meropenem. Patient also on emperic acyclovir. He was on on empiric voriconazole however was discontinued due to elevated liver enzymes. He currently denies nausea/vomiting/diarrhea/her breast/chest pain. Allergies SHRIMP Allergy (Uncoded 01/19/21 09:12) Anaphylaxis Home Medications: Cholecalciferol (Vitamin D3) [Vitamin D3] 2 cap PO DAILY 11/12/20 Folic Acid 1 mg PO DAILY 11/12/20 Omeprazole 1 cap PO DAILY 11/12/20 levoFLOXacin [Levaquin*] 500 mg PO DAILY #7 tab 11/12/20 Acyclovir 400 mg PO BID 03/24/21 Amitriptyline HCl 50 mg PO BEDTIME 03/24/21 Baclofen 10 mg PO TID 03/24/21 Cyanocobalamin [Vitamin B-12*] 1,000 mcg PO DAILY 03/24/21 Finasteride 5 mg PO DAILY 03/24/21 Sildenafil Citrate 100 mg PO PRN 03/24/21 Calcium Carbonate [Tums Regular*] 500 mg PO TID PRN 06/22/21 Furosemide [Lasix] 40 mg PO DAILY #30 tab 06/22/21 Gabapentin [Neurontin*] 400 mg PO TID cap 06/22/21 LIDOCAINE 2% JELLY, 5mL [Xylocaine 2% Jelly*] 5 ml MM QIDP PRN 06/22/21 Lactulose [Cephulac*] 20 gm PO QID PRN 06/22/21 Lisinopril [Zestril] 2.5 mg PO DAILY 06/22/21 Magnesium Oxide [Mag 0X Tab] 400 mg PO DAILY #30 tab 06/22/21 Ondansetron [Ondansetron Odt] 8 mg PO TIDP PRN 06/22/21 Potassium Chloride [Klor-Con M20] 20 meq PO DAILY #30 tab.er.prt 06/22/21 Sennosides 8.6 mg PO BID 06/22/21 Tiotropium [Spiriva Handihaler*] 18 mcg IH DAILY 06/22/21 Venetoclax [Venclexta] 100 mg PO DAILY 06/22/21 - Past Medical/Surgical History Diabetic: No -: Hypertension -: Hyperlipidemia -: BPH -: Chronic pain -: AML -: Chronic lymphedema -: GERD -: Cholecystectomy -: Back surgery Psychosocial/ Personal History: Patient is a - Social History Smoking Status: Unknown if ever smoked Alcohol use: No CD- Drugs: No Caffeine use: Yes Place of Residence: Home Review of Systems 10-point ROS is otherwise unremarkable Physical Examination Temp Pulse Resp BP Pulse Ox 99.2 F 109 H 22 H 115/69 95 07/07/21 09:14 07/07/21 09:07 07/07/21 08:00 07/07/21 09:07 07/07/21 08:00 General: Alert, In no apparent distress, Oriented x3 HEENT: Atraumatic, Normocephalic Neck: Supple Respiratory: Clear to auscultation bilaterally, Normal air movement Cardiovascular: No edema, Regular rate/rhythm Gastrointestinal: Normal bowel sounds, Soft and benign Musculoskeletal: No clubbing, No swelling, No contractures Conclusions/Impression: Antibiotic: Meropenem Start: 07/06 Antiviral: Acyclovir Start: 07/06 Antifungal: Micafungin Start: 07/07 Assessment/plan Neutropenic fever Patient first spiked fever on 07/06 with a T-max of a 101.8. Today patient's T-max is 99.2. WBC of 0.1 with absolute left shift. Recommend closely monitoring temperature curve. Blood and urine cultures pending. Patient empirically placed on meropenem, acyclovir, and micafungin. Patient will need to be placed on reverse contact isolation. -medical management per primary team. -plan of care discussed with Dr. Rodriguez Thank you for consultation
[2021-07-07] MEDS: MICAFUNGIN SODIUM 100 MG in NA CHLORIDE 0.9% 100 ML IV SCH (14:12)
[2021-07-07] MEDS ORDERED: TBO-FILGRASTIM 480 MCG/0.8 ML SYR SQ ONE (16:30)
[2021-07-07] MEDS: NA CHLORIDE 0.9% 1,000 ML IV SCH (17:54)
[2021-07-07] MEDS: AMITRIPTYLINE 50 MG TAB PO SCH (20:55)
[2021-07-07] MEDS: MELATONIN 5 MG TABLET PO SCH (20:57)
[2021-07-08] MEDS: Meropenem 1 GM/100 ML BAG IV SCH ×3 (00:22→19:44)
[2021-07-08] MEDS: ACYCLOVIR INJ 400 MG in NA CHLORIDE 0.9% 100 ML IVPB SCH ×3 (05:00→20:56)
--- NOTE | 2021-07-08 06:24 | P.PN ---
Date of Service: 07/08/21 Subjective: Patient with some slight confusion/agitation overnight, seemed to have somewhat of a panic attack and became tachypneic due to feeling short of breath. This morning he reports feeling better, no new complaints, stating he like to try and get out of bed today. Denies any dysuria, new pains Remains sinus tachycardia with occasional PVCs throughout the night, low 100s ROS: 10 point ROS as noted above, otherwise negative Physical exam GEN: Alert, oriented, NAD HEENT: Normal conjunctiva, sclera anicteric CV: Sinus tachycardia 110, trace bilateral edema to knees Pulm: Slight tachypnea, but nonlabored on Venturi mask, diminished at bilateral bases ABD: Soft, nontender, nondistended MSK: No joint tenderness Integumentary: No rashes Neuro: Normal speech, normal affect Problem List Pancytopenia, with severe thrombocytopenia Neutropenic fever, with sepsis AML, on chemotherapy Epistaxis, resolved Chronic COPD Chronic lymphedema Hypertension Chronic back pain BPH Initially, no change in hemoglobin after 2 unit PRBC. Transfuse an additional 2 unit PRBC on 07/06. Hemoglobin responded appropriately. Anemia work-up without significant hemolysis, minimal/no reticulocyte Hematology/oncology consulted, discussed case with patient's oncologist in [place] Given his resistance to transfusions, fever, and AML, both oncologist recommend transfer to [facility] in [place] Patient is agreeable Transfer initiated on 07/07, accepted to the [facility], but reported earliest anticipated bed availability would be Monday 07/09 Hemoglobin down today, will recheck Platelets down further, will order 2 packs, will premedicate. Patient has now had 2 reactions to platelets on separate occasions, here, and at a different hospital earlier in the year. Febrile on 07/06, work-up so far has been positive for GNR in urine Patient empirically changed to meropenem on 07/06, from cefepime. And started on acyclovir and micafungin. Infectious disease was consulted Reports improvement in his head pain, CT brain was negative Liver MRI more consistent with hemangioma than malignancy Sinus tachycardia likely physiologic response to infection, discussed with cardiology, no further evaluation at this time If blood pressure can handle it, would give low-dose IV metoprolol if needed for his heart rate Dispo: transfer to [facility] when bed available Time Spent Managing Pts Care (In Minutes): 35
[2021-07-08 06:36] LABS: Hematocrit 22.6 % (39.6-49.0); MPV 8.6 fL (7.6-11.3); RBC Red Blood Cell Count 2.58 M/uL (4.33-5.43)
[2021-07-08 07:05] LABS: ALT/SGPT 45 U/L (12-78); AST/SGOT 22 U/L (15-37); Albumin 1.3 g/dL (3.4-5.0); Alkaline Phosphatase 164 U/L (45-117); BUN Blood Urea Nitrogen 13 mg/dL (7-18); Bicarbonate 30 mmol/L (21-32); Bilirubin Total 1.3 mg/dL (0.2-1.0); Glucose Level 121 mg/dL (74-106); Phosphorus 2.8 mg/dL (2.5-4.9); Potassium 3.1 mmol/L (3.5-5.1); Protein, Total 5.2 g/dL (6.4-8.2); Sodium Level 138 mmol/L (136-145)
[2021-07-08] MEDS ORDERED: DIPHENHYDRAMINE 50 MG/ML VIAL IV PRN (08:05)
[2021-07-08] MEDS: CYANOCOBALAMIN 1,000 MCG TAB PO SCH (08:52)
[2021-07-08] MEDS: FUROSEMIDE 40 MG TABLET PO SCH (08:52)
[2021-07-08] MEDS: MAGNESIUM OXIDE 400 MG TAB PO SCH (08:52)
[2021-07-08] MEDS: GABAPENTIN 400 MG CAP PO SCH ×3 (08:52→20:57)
[2021-07-08] MEDS: VITAMIN D 1000 UNIT TAB PO SCH ×2 (08:52→08:53)
[2021-07-08] MEDS: BACLOFEN 10 MG TAB PO SCH ×3 (08:52→20:58)
[2021-07-08] MEDS: SENOSIDES 8.6 MG TAB PO SCH ×2 (08:52→20:58)
[2021-07-08] MEDS: POTASSIUM CL SA 10 MEQ TAB PO SCH (08:53)
[2021-07-08] MEDS: PANTOPRAZOLE 40MG TABLET PO SCH (08:54)
[2021-07-08] MEDS: lisinopriL 5 MG TAB PO SCH (08:54)
[2021-07-08] MEDS: FOLIC ACID 1 MG TABLET PO SCH (08:54)
[2021-07-08] MEDS: FINASTERIDE 5 MG TAB PO SCH (08:54)
[2021-07-08] MEDS: TIOTROPIUM 5 SPRAYS/INHALER IH SCH (08:55)
[2021-07-08] MEDS ORDERED: MICAFUNGIN SODIUM 100 MG VIAL IV SCH (09:00)
[2021-07-08 11:27] LABS: Blood Morphology Comment NOT SEEN (NOT SEEN); Platelet Estimate DECR; White Blood Cell Scan OK (OK)
[2021-07-08] MEDS ORDERED: POTASSIUM CL SA 10 MEQ TAB PO ONE (14:00)
[2021-07-08] MEDS: NA CHLORIDE 0.9% 1,000 ML IV SCH (14:00)
[2021-07-08] MEDS ORDERED: METOPROLOL TARTRATE 5 MG/5 ML INJ IV STA (15:00)
[2021-07-08] MEDS ORDERED: METOPROLOL TARTRATE 5 MG/5 ML INJ IV ONE (15:04)
--- NOTE | 2021-07-08 15:05 | CON ---
Date of Consultation: 07/08/2021 Reason For Consultation: Tachycardia. History Of Present Illness: A 76-year-old male with history of AML, on chemotherapy, presents to the ER with pancytopenia and fever, shortness of breath. Hemoglobin was 6.1 and white blood cell count was 0.8. Had a few episodes of tachycardia, was labeled as SVT. Seen by bedside. He denies having any history of cardiac disease. Has history of hypertension, dyslipidemia, AML, and acid reflex. No chest pain at present time. Past Medical History: As outlined above in the HPI. Medications: Refer reconciliation sheet for detailed list. Allergies: NO KNOWN DRUG ALLERGIES. Social History: Does not smoke or drink. Does not use any drugs. Past Surgical History: Back surgery and cholecystectomy. Family History: No premature coronary artery disease or cancer. Review of Systems: All systems reviewed and they were negative except as mentioned in the HPI. Physical Examination: Vital Signs: Temperature is 98.4, heart rate between 100 to 107, blood pressure is 119/62, and satur ating 96%. General: Pleasant elderly male, in no distress. Head and Neck: Pupils are equal and reactive to light. Intact eye movements. No JVD. No cervical lymphadenopathy. Neck: Supple. Thyroid is not enlarged. Lungs: Decreased breathing sounds bilaterally. No rhonchi, wheezing, or crackles. No accessory mus leyda use. Heart: Regular rate and rhythm. No extra sounds. Abdomen: Soft, nontender. Bowel sounds positive. No organomegaly. No masses or hernia. No rigidi ty or rebound. Extremities: No clubbing or cyanosis. Intact pulses. Skin: No rashes. Neurologic: Alert and oriented x3. No acute focal deficits appreciated. Investigations: White cell count is 0.1, hemoglobin was 6.1 and now it is 8.7, platelets are 12. Tr oponin less than 0.02. BNP is 504. His creatinine is 0.5. Assessment And Recommendations: Tachycardia. The patient has sepsis from the pancytopenia and the a nemia that could explain the tachycardia at sinus with some PVCs on the monitor. At this point, if b lood pressure allows, recommend metoprolol 25 mg twice a day. Otherwise, just observation and obtain echocardiogram. Also, I would recommend given the history of cancer to evaluate for possibility of pulmonary embolism. Check D-dimer. If it is elevated, I recommend a CTA lungs. Thank you for the consult. EFREM Voice ID: [id number] Report ID: [id number]
[2021-07-08] MEDS: ACETAMINOPHEN 500 MG TAB PO PRN (15:24)
--- NOTE | 2021-07-08 16:13 | RAD REPORT ---
EXAM DESCRIPTION: [facility] Single View07/08/2021 3:49 pm CLINICAL HISTORY: Hypoxia COMPARISON: July 06 FINDINGS: Worsening in extensive bilateral pulmonary opacities. Heart is normal size IMPRESSION: Worsening in extensive bilateral pulmonary opacities which could represent pulmonary jose ma or pneumonia
[2021-07-08] MEDS ORDERED: TBO-FILGRASTIM 480 MCG/0.8 ML SYR SQ ONE (17:00)
[2021-07-08] MEDS: METOPROLOL TAR 25 MG TAB PO SCH (17:25)
[2021-07-08] MEDS: MICAFUNGIN SODIUM 100 MG in NA CHLORIDE 0.9% 100 ML IV SCH (18:19)
[2021-07-08] MEDS: MELATONIN 5 MG TABLET PO SCH (20:57)
[2021-07-08] MEDS: AMITRIPTYLINE 50 MG TAB PO SCH (20:58)
[2021-07-09] MEDS: Meropenem 1 GM/100 ML BAG IV SCH ×3 (01:59→18:06)
[2021-07-09] MEDS: HALOPERIDOL LACT 5 MG/ML INJ IM PRN ×2 (02:52→14:28)
[2021-07-09] MEDS: ACYCLOVIR INJ 400 MG in NA CHLORIDE 0.9% 100 ML IVPB SCH (04:00)
[2021-07-09] MEDS: METOPROLOL TAR 25 MG TAB PO SCH ×2 (05:06→17:47)
[2021-07-09 05:45] LABS: Absolute Lymphocytes (CBC) 0.1 K/uL (0.7-4.9); Hematocrit 27.8 % (39.6-49.0); Lymphocytes % 24.7 % (15.3-44.8); MPV 9.1 fL (7.6-11.3); RBC Red Blood Cell Count 3.12 M/uL (4.33-5.43)
[2021-07-09 06:10] LABS: Magnesium 2.1 mg/dL (1.8-2.4); Phosphorus 3.4 mg/dL (2.5-4.9)
--- NOTE | 2021-07-09 06:20 | P.PN ---
Date of Service: 07/09/21 Subjective: restless overnight, received haldol with not much effect Appears to be a little bit more in respiratory distress, more tachypneic Nursing reported intermittent confusion, wanting to get out of bed, pulled out IVs Patient was more calm and AAO x3 when I saw him ROS: 10 point ROS as noted above, otherwise negative Physical exam GEN: Alert, oriented, mild distress HEENT: Normal conjunctiva, sclera anicteric CV: Sinus tachycardia 110-120, trace bilateral edema to knees Pulm: tachypnea, labored respirations on nasal cannula, diminished bilateral bases with crackles heard throughout ABD: Soft, nontender, nondistended MSK: No joint tenderness Integumentary: No rashes Problem List Pancytopenia, with severe thrombocytopenia Neutropenic fever, with sepsis Moderate bilateral pleural effusions, concerning for TACO (transfusion associated circulatory overload) AML, on chemotherapy Epistaxis, resolved Chronic COPD Chronic lymphedema Hypertension Chronic back pain BPH Initially, no change in hemoglobin after 2 unit PRBC. Transfuse an additional 2 unit PRBC on 07/06. Hemoglobin responded appropriately. Anemia work-up without significant hemolysis, minimal/no reticulocyte Hematology/oncology consulted, discussed case with patient's oncologist in [place] Given his resistance to transfusions, fever, and AML, both oncologist recommend transfer to [facility] in [place] Patient is agreeable Transfer initiated on 07/07, accepted to the [facility], but reported earliest anticipated bed availability would be Monday 07/09 Hemoglobin down today, will recheck Platelets increased after 2 further units of platelets on 07/08, was premedicated with Tylenol and Benadryl Febrile on 07/06, work-up so far has been positive for GNR in urine Patient empirically changed to meropenem on 07/06, from cefepime. And started on acyclovir and micafungin. Infectious disease was consulted, add vancomycin Reports improvement in his head pain, CT brain was negative Liver MRI more consistent with hemangioma than malignancy Sinus tachycardia likely physiologic response to infection, discussed with cardiology, no further evaluation at this time, does appear to have some brief/intermittent episodes of what appears to be A. fib. Cardiology recommended low-dose p.o. metoprolol if can tolerate Transfer to ICU Patient with worsening respiratory status, CT obtained yesterday with moderate pleural effusion, worsening mediastinal lymphadenopathy Will obtain ABG, will likely benefit from BiPAP Consult pulmonology Increase in patient's creatinine, concern for TACO, consult nephrology for assistance with diuresis, given patient's hypotension/borderline hypotension Patient pulling IVs Patient may need central IV access if he is going to receive Lasix and may further decrease his blood pressure, necessitating pressors Had a long discussion with patient's daughter, wants to proceed with everything up until the point of DNR/DNI Dispo: Transfer patient to ICU for closer monitoring, transfer to [facility] when bed available. Transfer will likely now be delayed Time Spent Managing Pts Care (In Minutes): 35
[2021-07-09 07:09] LABS: ALT/SGPT 159 U/L (12-78); AST/SGOT 153 U/L (15-37); Albumin 1.8 g/dL (3.4-5.0); Alkaline Phosphatase 182 U/L (45-117); BUN Blood Urea Nitrogen 22 mg/dL (7-18); Bicarbonate 29 mmol/L (21-32); Bilirubin Total 1.5 mg/dL (0.2-1.0); Glucose Level 186 mg/dL (74-106); Potassium 3.7 mmol/L (3.5-5.1); Protein, Total 6.8 g/dL (6.4-8.2); Sodium Level 139 mmol/L (136-145)
[2021-07-09] MEDS: FOLIC ACID 1 MG TABLET PO SCH (08:22)
[2021-07-09] MEDS: VITAMIN D 1000 UNIT TAB PO SCH (08:22)
[2021-07-09] MEDS: POTASSIUM CL SA 10 MEQ TAB PO SCH (08:22)
[2021-07-09] MEDS: SENOSIDES 8.6 MG TAB PO SCH ×2 (08:22→21:00)
[2021-07-09] MEDS: MAGNESIUM OXIDE 400 MG TAB PO SCH (08:23)
[2021-07-09] MEDS: GABAPENTIN 400 MG CAP PO SCH ×3 (08:23→21:00)
[2021-07-09] MEDS: PANTOPRAZOLE 40MG TABLET PO SCH (08:23)
[2021-07-09] MEDS: lisinopriL 5 MG TAB PO SCH (08:23)
[2021-07-09] MEDS: CYANOCOBALAMIN 1,000 MCG TAB PO SCH (08:23)
[2021-07-09] MEDS: BACLOFEN 10 MG TAB PO SCH ×3 (08:23→21:00)
[2021-07-09] MEDS: FINASTERIDE 5 MG TAB PO SCH (08:23)
[2021-07-09] MEDS: TIOTROPIUM 5 SPRAYS/INHALER IH SCH (08:26)
--- NOTE | 2021-07-09 09:45 | P.CNS ---
Date of Consult: 07/09/21 Reason for Consult: BIA Requesting Physician: Tal Prieto Chief Complaint: Shortness of breath History of Present Illness: 76M w/ PMHx of AML on chemotheray, who p/w SOB, fever, & pancytopenia. He received bld products & granix & subsequently developed worsening SOB & BIA. On my evaluation, he is borderline hypotensive, in acute respi distress & on bipap. No rales or JVD. Has trace BLE edema. SCr increased from 0.5 to 0.8. He received IV contrast on 07/08 upon chest CTA. Chest CTA showed bilat pleural effusions but no e/o pulmo Htn. He was admitted last month at [facility] w/ febrile neutropenia. Per his daughter, he had extensive infectious workup but results unrevealing. Allergies SHRIMP Allergy (Uncoded 01/19/21 09:12) Anaphylaxis Home Medications: Cholecalciferol (Vitamin D3) [Vitamin D3] 2 cap PO DAILY 11/12/20 Folic Acid 1 mg PO DAILY 11/12/20 Omeprazole 1 cap PO DAILY 11/12/20 levoFLOXacin [Levaquin*] 500 mg PO DAILY #7 tab 11/12/20 Acyclovir 400 mg PO BID 03/24/21 Amitriptyline HCl 50 mg PO BEDTIME 03/24/21 Baclofen 10 mg PO TID 03/24/21 Cyanocobalamin [Vitamin B-12*] 1,000 mcg PO DAILY 03/24/21 Finasteride 5 mg PO DAILY 03/24/21 Sildenafil Citrate 100 mg PO PRN 03/24/21 Calcium Carbonate [Tums Regular*] 500 mg PO TID PRN 06/22/21 Furosemide [Lasix] 40 mg PO DAILY #30 tab 06/22/21 Gabapentin [Neurontin*] 400 mg PO TID cap 06/22/21 LIDOCAINE 2% JELLY, 5mL [Xylocaine 2% Jelly*] 5 ml MM QIDP PRN 06/22/21 Lactulose [Cephulac*] 20 gm PO QID PRN 06/22/21 Lisinopril [Zestril] 2.5 mg PO DAILY 06/22/21 Magnesium Oxide [Mag 0X Tab] 400 mg PO DAILY #30 tab 06/22/21 Ondansetron [Ondansetron Odt] 8 mg PO TIDP PRN 06/22/21 Potassium Chloride [Klor-Con M20] 20 meq PO DAILY #30 tab.er.prt 06/22/21 Sennosides 8.6 mg PO BID 06/22/21 Tiotropium [Spiriva Handihaler*] 18 mcg IH DAILY 06/22/21 Venetoclax [Venclexta] 100 mg PO DAILY 06/22/21 - Past Medical/Surgical History Diabetic: No -: Hypertension -: Hyperlipidemia -: BPH -: Chronic pain -: AML -: Chronic lymphedema -: GERD -: Cholecystectomy -: Back surgery Psychosocial/ Personal History: Patient is a - Social History Smoking Status: Unknown if ever smoked Alcohol use: No CD- Drugs: No Caffeine use: Yes Place of Residence: Home Review of Systems General: Weakness Eyes: Unremarkable ENT: Unremarkable Respiratory: Shortness of Breath, SOB with Excertion Cardiovascular: Unremarkable Gastrointestinal: Unremarkable Genitourinary: Other (Hesitancy) Musculoskeletal: Pedal edema Integumentary: Unremarkable Neurological: Unremarkable Lymphatics: Unremarkable Physical Examination Temp Pulse Resp BP Pulse Ox 96.8 F 120 H 20 120/62 95 07/09/21 04:00 07/09/21 08:23 07/09/21 04:00 07/09/21 08:23 07/09/21 04:00 General: Acute distress HEENT: Atraumatic, Normocephalic, Other (+bipap) Neck: Supple, JVD not distended Respiratory: Clear to auscultation bilaterally Cardiovascular: No rubs, No murmurs, Edema Gastrointestinal: Soft and benign, Non-distended Musculoskeletal: No clubbing Integumentary: No warmth Neurological: Normal speech, Normal tone Lymphatics: No axilla or inguinal lymphadenopathy Urinary: Other (No bladder distention) External genitalia: Deferred Rectal: Deferred Conclusions/Impression: # BIA 2/2 prerenal state hypotension/ischemic ATN + acyclovir-induced nephrotoxicity + Lisinopril +/- ATN SCr increased from 0.5-0.8 Urinalysis w/ elevated S.G., +proteinuria, but no hematuria no pyuria F/u uchem, random UPCR, serum CPK MRI A/P showed unremarkable KUB, +R renal cyst Acyclovir IV switched to po Lisinopril d/c'ed Start midodrine +/- IV pressor as below Insert edwards Strict I/O Monitor Vanc trough level Monitor renal panel Received IV contrast on 07/08 upon CTA chest. Monitor for contrast induced nephropathy. # Hx of urinary retention Insert edwards Cont finasteride # Acute hypoxic respi failure Possible TRALI vs TACO from bld products received, vs PNA TTE in November 2020 unremarkable CTA chest on 07/08 +bilat pleural effusions, no pulmo Htn CXR + diffuse opacities ABG on 07/09 showed metabolic alkalosis + hypoxia Lasix 80 mg IV qid Bipap Antimicrobials as below Transfer to ICU # Febrile neutropenia +E coli UTI MRI A/P +liver lesion ? hemangioma F/u serum beta D glucan & galactomannan, legionella/Strep pneumo urinary Ag, cultures On Merrem, Micafungin, Vanc Acyclovir po bid for ppx # Hypotension likely 2/2 sepsis BNP slightly elevatedTSH wnl F/u serum DHEAS, 8am cortisol + ACTH, B12 Start Midodrine 10 mg po tid IV vasopressor if MAP < 65 despite midodrine # Hypercalcemia Corrected serum Ca 11.4 F/u serum iPTH, 25OHD, 1,25 OH2D Lasix as above # Metabolic alkalosis Hold off on giving IV fluids # BLE edema R > L Lasix as above # Pancytopenia F/u plasma CMV & EBC PCR, plasma Parvo Abs # Abnormal LFT Monitor
--- NOTE | 2021-07-09 09:54 | RAD REPORT ---
EXAM DESCRIPTION: Dolores Single View07/09/2021 6:32 am CLINICAL HISTORY: Shortness of breath COMPARISON: July 08, 2021 FINDINGS: Minimal improvement in the diffuse bilateral pulmonary opacities. Small to moderate pleural effusions unchanged Heart is normal size. IMPRESSION: Minimal improvement in the diffuse bilateral pulmonary opacities which represent pulmona ry edema or pneumonia
[2021-07-09] MEDS ORDERED: FUROSEMIDE 40 MG TABLET PO ONE (10:00)
[2021-07-09] MEDS: ALBUTEROL 2.5 MG/3 ML NEB SOL NEB SCH ×3 (10:40→20:00)
[2021-07-09] MEDS: IPRATROPIUM BROM 0.5MG/2.5ML NEB SCH ×3 (10:40→20:00)
--- NOTE | 2021-07-09 10:42 | P.CNS ---
Date of Consult: 07/09/21 Reason for Consult: Hypoxemia Chief Complaint: Shortness of breath History of Present Illness: Patient is 76 years of age with acute myeloid leukemia undergoing chemotherapy presented to the emergency room with pancytopenia and severe anemia in addition to shortness of breath patient was transfused will continues to remain very short of breath is quit smoking recently denies any fever or cough Allergies SHRIMP Allergy (Uncoded 01/19/21 09:12) Anaphylaxis Home Medications: Cholecalciferol (Vitamin D3) [Vitamin D3] 2 cap PO DAILY 11/12/20 Folic Acid 1 mg PO DAILY 11/12/20 Omeprazole 1 cap PO DAILY 11/12/20 levoFLOXacin [Levaquin*] 500 mg PO DAILY #7 tab 11/12/20 Acyclovir 400 mg PO BID 03/24/21 Amitriptyline HCl 50 mg PO BEDTIME 03/24/21 Baclofen 10 mg PO TID 03/24/21 Cyanocobalamin [Vitamin B-12*] 1,000 mcg PO DAILY 03/24/21 Finasteride 5 mg PO DAILY 03/24/21 Sildenafil Citrate 100 mg PO PRN 03/24/21 Calcium Carbonate [Tums Regular*] 500 mg PO TID PRN 06/22/21 Furosemide [Lasix] 40 mg PO DAILY #30 tab 06/22/21 Gabapentin [Neurontin*] 400 mg PO TID cap 06/22/21 LIDOCAINE 2% JELLY, 5mL [Xylocaine 2% Jelly*] 5 ml MM QIDP PRN 06/22/21 Lactulose [Cephulac*] 20 gm PO QID PRN 06/22/21 Lisinopril [Zestril] 2.5 mg PO DAILY 06/22/21 Magnesium Oxide [Mag 0X Tab] 400 mg PO DAILY #30 tab 06/22/21 Ondansetron [Ondansetron Odt] 8 mg PO TIDP PRN 06/22/21 Potassium Chloride [Klor-Con M20] 20 meq PO DAILY #30 tab.er.prt 06/22/21 Sennosides 8.6 mg PO BID 06/22/21 Tiotropium [Spiriva Handihaler*] 18 mcg IH DAILY 06/22/21 Venetoclax [Venclexta] 100 mg PO DAILY 06/22/21 - Past Medical/Surgical History Diabetic: No -: Hypertension -: Hyperlipidemia -: BPH -: Chronic pain -: AML -: Chronic lymphedema -: GERD -: Cholecystectomy -: Back surgery Psychosocial/ Personal History: Patient is a - Social History Smoking Status: Unknown if ever smoked Alcohol use: No CD- Drugs: No Caffeine use: Yes Place of Residence: Home Review of Systems 10-point ROS is otherwise unremarkable General: Weakness Respiratory: Shortness of Breath Physical Examination Temp Pulse Resp BP Pulse Ox 96.8 F 120 H 20 120/62 95 07/09/21 04:00 07/09/21 10:00 07/09/21 04:00 07/09/21 10:00 07/09/21 04:00 General: Alert, Oriented x3, Moderate distress Respiratory: Expiratory wheezes Cardiovascular: No edema, Regular rate/rhythm, Normal S1 S2 Gastrointestinal: Normal bowel sounds, Soft and benign Integumentary: No rashes, No breakdown - Problems (1) COPD exacerbation Current Visit: Yes Status: Acute Plan: Patient is 76 patient is 76 years of age with acute myeloid leukemia admitted with severe pancytopenia patient is hyper patient is in hypoxic moderate respiratory distress patient has bilateral pleural patient has bilateral pleural effusion normal normal left ventricular function by an echo done in November 2020 gram-negative reji patient is on broad-spectrum antibiotics add bronchodilators chest x-ray shows some evidence of volume overload continue with low-dose diuretics as tolerated
[2021-07-09 10:46] LABS: Blood O2 Saturation 88.9 % (92-98.5)
[2021-07-09 10:47] LABS: Arterial Blood Carboxyhemoglob 1.4 % (0-1.5)
[2021-07-09] MEDS ORDERED: FUROSEMIDE 40 MG/4 ML VIAL IV STA (11:04)
[2021-07-09 11:21] LABS: Blood Morphology Comment NOT SEEN (NOT SEEN); Platelet Estimate DECR; White Blood Cell Scan OK (OK)
--- NOTE | 2021-07-09 11:36 | PN ---
Subjective: The patient lying in bed on BiPAP 50%, somewhat confused, and pulling things out. Famil y by the bedside. Objective: Vital Signs: Temperature 96.8, pulse 120, respiration 30, and blood pressure 120/62. Lungs: Basal crackles, left more than right. Heart: S1 and S2. Regular. Abdomen: Soft, nontender. Bowel sounds present. Extremities: Trace edema. Laboratory Data: Shows WBC 0.5, hemoglobin 9.3, and platelets 29. Chemistry; 139 sodium, potassium 3.7, chloride 98, bicarb 29, BUN 22, creatinine 0.8, and glucose 186. Micro data showing Escherichia coli in the urine. The blood cultures negative for 24 hours. Assessment And Plan: The patient is currently being treated with acyclovir, meropenem, micafungin, a nd vancomycin. Severe neutropenia and pancytopenia status post chemotherapy for AML. Bilateral pulm onary opacities and pneumonitis in a patient with neutropenia. Continue empiric antibiotic, antivira l, and anti-fungal. Prognosis guarded. We will follow the patient closely. No other recommendation at this time. NF/MODL Voice ID: [id number] Report ID: [id number]
[2021-07-09] MEDS ORDERED: WATER FOR INJ,STERILE 10 ML IM PRN (11:38)
[2021-07-09] MEDS ORDERED: ZIPRASIDONE MESYLA 20 MG/VIAL IM PRN (11:38)
[2021-07-09] MEDS: ACYCLOVIR 400 MG TABLET PO SCH ×2 (12:00→21:00)
[2021-07-09] MEDS: VANCOMYCIN 1.5 GM in NA CHLORIDE 0.9% 500 ML IVPB SCH (12:00)
[2021-07-09 12:49] LABS: UR SODIUM < 5 mmol/L (27-287)
[2021-07-09] MEDS: FUROSEMIDE 80 MG in NA CHLORIDE 0.9% 50 ML IV SCH ×3 (13:00→21:00)
[2021-07-09] MEDS: MICAFUNGIN SODIUM 100 MG in NA CHLORIDE 0.9% 100 ML IV SCH (13:00)
[2021-07-09 13:10] LABS: UR PROTEIN 353.9 mg/dL (<11.9); Urine Protein/Creatinine Ratio 2.97 ratio (<0.15)
[2021-07-09] MEDS ORDERED: ZIPRASIDONE MESYLA 20 MG/VIAL IM ONE (14:26)
[2021-07-09] MEDS ORDERED: HALOPERIDOL LACT 5 MG/ML INJ ONE (14:26)
[2021-07-09] MEDS ORDERED: LORazepam 2 MG/ML VIAL IV ONE (15:23)
[2021-07-09] MEDS ORDERED: ACETAMINOPHEN 500 MG TAB ONE (15:35)
--- NOTE | 2021-07-09 15:38 | RAD REPORT ---
EXAM DESCRIPTION: CT - Chest For Pe Angio - 07/09/2021 3:32 am CLINICAL HISTORY: 76 years Male worsening hypoxia, r/o PE, new pneumonia. TECHNIQUE: Following the administration of intravenous contrast, multiple high-resolution axial imag es of the chest were performed followed by sagittal and coronal reconstructed images. Coronal oblique MIP images were also performed. The CT study is performed according to ALARA (as low as reasonably a chievable) or ALARA/IMAGE GENTLY, with automatic adjustment of mA and/or kV according to patient size . Performed on: 07/08/2021 at 10:41 PM COMPARISON: CT chest performed on 06/21/2021. The earlier study from 11/11/2020 was unavailable for re view. FINDINGS: There is satisfactory visualization and contrast opacification of pulmonary arteries. No definite intra-arterial filling defects are identified to suggest acute or chronic pulmonary embolis m. The thoracic aorta is normal in caliber and contour without evidence of aneurysm or dissection. The lungs are well-expanded. There are increasing bilateral pleural effusions which are small to mode rate in size bilaterally. Again demonstrated are scattered parenchymal cysts throughout both lungs wi th greatest involvement of the lower lobes. There is mild bibasilar compressive atelectasis. Also not ed are calcified and noncalcified bilateral pleural plaques commonly seen with prior asbestos exposur e. The heart is normal in size. There is no pericardial effusion. There is no reflux of contrast into th e hepatic veins to suggest right heart strain.The RV/LV ratio is within normal limits. There is persistent hilar, mediastinal and axillary lymphadenopathy. There is infiltration of the fat within the right axilla which may be related to inflammation and/or recent intervention. There are i nflammatory changes extending along the right lateral chest wall and along the right lateral abdomina l wall. There has been an interval increase in number of enlarged lymph nodes in the right axilla. Th e largest measures approximately 2.1 x 1.6 cm in cross-sectional diameter (series 404, image 60). The re has been an interval increase in size of the lymph nodes in the left axilla. The hilar and mediast inal lymphadenopathy also appears slightly more prominent since the previous examination. No acute osseous abnormality is identified. There is mild degenerative spondylosis throughout the tho racic spine. There is a subcutaneous soft tissue mass posterior to the thoracic spine at the level of T9-T10 to th e left of midline measuring approximately 4.5 x 1.5 x 4.4 cm. There are additional poorly defined are as of subcutaneous soft tissue thickening along the left posterior chest wall posterior and inferior to the scapula. These areas are similar when compared to the prior study. Findings may be due to an i nfectious, inflammatory or neoplastic process. The visualized portions of the upper abdomen reveal evidence of prior cholecystectomy. There is retro peritoneal lymphadenopathy. IMPRESSION: 1. No evidence of acute or chronic pulmonary embolism, thoracic aortic aneurysm or tho racic aortic dissection. 2. Increasing pleural effusions which are small to moderate in size bilaterally. There is mild bibasi lar compressive atelectasis. Findings may be due to pulmonary edema. Scattered parenchymal cysts are again noted particularly in the lower lobe regions. 3. Worsening hilar, mediastinal and axillary lymphadenopathy, particularly in the right axillary ev on. There is also retrocrural lymphadenopathy in the upper abdomen. 4. Subcutaneous soft tissue mass posterior to the thoracic spine at the level of T9-T10 to the left o f midline measuring up to 4.5 cm in diameter. There are additional poorly defined areas of subcutaneo us soft tissue thickening along the left posterior chest wall posterior and inferior to the scapula. These areas are similar when compared to the prior study. Findings may be due to an infectious, infla mmatory or neoplastic process. 5. New inflammatory changes extending along the right lateral chest wall and along the right lateral abdominal wall. 6. Chronic pleural plaques which are commonly seen with prior asbestos exposure. Electronically signed by: Rebecca Gold DO 07/08/2021 11:35 PM [facility] Due to temporary technical issues with the PACS/Fluency reporting system, reports are being signed by the in house radiologists without review as a courtesy to insure prompt reporting. The interpreting radiologist is fully responsible for the content of the report.
[2021-07-09] MEDS ORDERED: METOPROLOL TARTRATE 5 MG/5 ML INJ IV STA (17:49)
[2021-07-09] MEDS ORDERED: METOPROLOL TARTRATE 5 MG/5 ML INJ IV ONE (18:03)
[2021-07-09] MEDS: MELATONIN 5 MG TABLET PO SCH (21:00)
[2021-07-09] MEDS: AMITRIPTYLINE 50 MG TAB PO SCH (21:00)
[2021-07-10] MEDS: MIDODRINE HCL 5 MG TABLET PO SCH ×4 (00:42→14:00)
[2021-07-10] MEDS: Meropenem 1 GM/100 ML BAG IV SCH ×2 (01:00→09:07)
[2021-07-10] MEDS ORDERED: NA CHLORIDE 0.9% 100 ML ONE (01:17)
[2021-07-10] MEDS ORDERED: Meropenem 1000 MG/VIAL IV ONE (01:17)
[2021-07-10] MEDS ORDERED: LORazepam 2 MG/ML VIAL ONE ×2 (01:18→09:01)
[2021-07-10] MEDS: LORazepam 2 MG/ML VIAL IV PRN ×2 (01:44→09:08)
[2021-07-10 06:00] LABS: Hematocrit 23.9 % (39.6-49.0); MPV 8.4 fL (7.6-11.3); RBC Red Blood Cell Count 2.71 M/uL (4.33-5.43)
[2021-07-10 06:16] LABS: ALT/SGPT 131 U/L (12-78); AST/SGOT 61 U/L (15-37); Albumin 1.3 g/dL (3.4-5.0); Alkaline Phosphatase 129 U/L (45-117); BUN Blood Urea Nitrogen 28 mg/dL (7-18); Bicarbonate 30 mmol/L (21-32); Bilirubin Total 1.4 mg/dL (0.2-1.0); Glucose Level 150 mg/dL (74-106); Magnesium 2.2 mg/dL (1.8-2.4); Phosphorus 2.3 mg/dL (2.5-4.9); Potassium 3.3 mmol/L (3.5-5.1); Protein, Total 5.6 g/dL (6.4-8.2); Sodium Level 142 mmol/L (136-145)
--- NOTE | 2021-07-10 06:16 | P.PN ---
Subjective Date of Service: 07/11/21 Chief Complaint: Shortness of breath Subjective: Other (On bipap.) Review of Systems General: Weakness Eyes: Unremarkable ENT: Unremarkable Respiratory: Shortness of Breath Cardiovascular: Unremarkable Gastrointestinal: Unremarkable Genitourinary: Unremarkable Musculoskeletal: Unremarkable Integumentary: Unremarkable Neurological: Weakness Physical Examination - Vital Signs Temperature: 98 F Blood Pressure: 89/61 Pulse: 112 Respirations: 28 Pulse Ox (%): 100 - Physical Exam General: Acute distress HEENT: Normocephalic Neck: Supple, JVD not distended Respiratory: Clear to auscultation bilaterally, Other (Symmetric chest expansion) Cardiovascular: No rubs, No murmurs, Edema Gastrointestinal: Soft and benign, Non-distended Musculoskeletal: No clubbing, Swelling Integumentary: No warmth Neurological: Normal tone, Other (+lethargy) Lymphatics: No axilla or inguinal lymphadenopathy Urinary: Edwards catheter External genitalia: Deferred Rectal: Deferred Assessment And Plan - Plan # BIA 2/2 prerenal state + hypotension/ischemic ATN + acyclovir-induced nephrotoxicity + Lisinopril SCr improved from 0.8 to 0.6 Urinalysis w/ elevated S.G., +proteinuria, but no hematuria no pyuria 3.0g proteinuria MRI A/P showed unremarkable KUB, +R renal cyst Acyclovir IV switched to po Lisinopril d/c'ed Start midodrine +/- IV pressor as below Cont edwards Strict I/O Monitor Vanc trough level Monitor renal panel Received IV contrast on 07/08 upon CTA chest. Monitor for contrast induced nephropathy. # Hx of urinary retention Cont edwards Cont finasteride Start flomax # Acute hypoxic respiratory failure More TRALI (than TACO) from bld products received +/- PNA TTE in November 2020 unremarkable CTA chest on 07/08 + bilat pleural effusions, no pulmo Htn CXR + diffuse opacities ABG showing metabolic alkalosis + hypoxia IV fluid bolus received ff'ed by D5W gtt 100 cc/hr Avoid diuretics Bipap prn Antimicrobials as below Transfer to ICU # Febrile neutropenia +E coli UTI MRI A/P +liver lesion ? hemangioma F/u serum beta D glucan & galactomannan, legionella/Strep pneumo urinary Ag, cultures On Merrem, Micafungin, Vanc Acyclovir po bid for ppx Granix # Hypotension likely 2/2 SIRS/sepsis BNP slightly elevatedTSH wnl F/u serum DHEAS, 8am cortisol + ACTH, B12 Titrate Midodrine up to 20 mg po tid to keep MAP > 65 IV vasopressor if MAP < 65 despite midodrine # Hypercalcemia Corrected serum Ca 11.4 F/u serum iPTH, 25OHD, 1,25 OH2D Lasix as above # Metabolic alkalosis IV fluids as above # BLE edema R > L Monitor # Pancytopenia F/u plasma CMV & EBC PCR, plasma Parvo Abs # Abnormal LFT Monitor
[2021-07-10 07:20] LABS: Platelet Estimate DECR
[2021-07-10 07:21] LABS: Blood Morphology Comment NOTED (NOT SEEN); Toxic Granulation 3+
[2021-07-10 07:22] LABS: Anisocytosis 1+; Target Cells FEW
[2021-07-10] MEDS ORDERED: ACETAMINOPHEN 650MG/RECT SUPP PR PRN (07:33)
[2021-07-10] MEDS ORDERED: KCL 20 MEQ/100 mL IVPB 20 MEQ/100 ML BAG IV SCH (08:00)
--- NOTE | 2021-07-10 08:04 | RAD REPORT ---
EXAM DESCRIPTION: RAD - Chest Single View - 07/10/2021 6:13 am CLINICAL HISTORY: hypoxia, f/u effusions COMPARISON: Chest Single View dated 07/09/2021; Chest Single View dated 07/08/2021; Chest Single Vie w dated 07/06/2021; Chest Single View dated 07/05/2021; Chest For Pe Angio dated 07/08/2021 FINDINGS: Lines: None. Lungs: Apparent increased opacification of the right lung base. Pleural: Bilateral effusions. Cardiac: Cardiomegaly. Bones: No acute fractures. Other: Increased patient rotation. IMPRESSION: Worsened aeration of the right lung base could be secondary to either patient rotation o r increased pleural effusion on a background of widespread bilateral airspace disease. Small left eff usion again noted.
[2021-07-10] MEDS ORDERED: IPRATROPIUM BROM 0.5MG/2.5ML ONE ×2 (08:19→13:44)
[2021-07-10] MEDS ORDERED: ALBUTEROL 2.5 MG/3 ML NEB SOL ONE ×2 (08:19→13:44)
[2021-07-10] MEDS: IPRATROPIUM BROM 0.5MG/2.5ML NEB SCH ×2 (08:20→13:45)
[2021-07-10] MEDS: METOPROLOL TAR 25 MG TAB PO SCH (08:20)
[2021-07-10] MEDS: ALBUTEROL 2.5 MG/3 ML NEB SOL NEB SCH ×2 (08:20→13:45)
[2021-07-10] MEDS: FOLIC ACID 1 MG TABLET PO SCH (08:21)
[2021-07-10] MEDS: POTASSIUM CL SA 10 MEQ TAB PO SCH (08:21)
[2021-07-10] MEDS: BACLOFEN 10 MG TAB PO SCH ×2 (08:22→14:00)
[2021-07-10] MEDS: MAGNESIUM OXIDE 400 MG TAB PO SCH (08:22)
[2021-07-10] MEDS: GABAPENTIN 400 MG CAP PO SCH ×2 (08:22→14:00)
[2021-07-10] MEDS: FINASTERIDE 5 MG TAB PO SCH (08:23)
[2021-07-10] MEDS: TIOTROPIUM 5 SPRAYS/INHALER IH SCH (08:23)
[2021-07-10] MEDS: SENOSIDES 8.6 MG TAB PO SCH (08:23)
[2021-07-10] MEDS: PANTOPRAZOLE 40MG TABLET PO SCH (08:23)
[2021-07-10] MEDS: CYANOCOBALAMIN 1,000 MCG TAB PO SCH (08:24)
[2021-07-10] MEDS: ACYCLOVIR 400 MG TABLET PO SCH (08:25)
[2021-07-10] MEDS ORDERED: KCL 20 MEQ/100 mL IVPB 20 MEQ/100 ML BAG IV ONE (08:26)
[2021-07-10] MEDS ORDERED: ACETAMINOPHEN 650MG/RECT SUPP PR ONE (08:26)
[2021-07-10] MEDS: FUROSEMIDE 80 MG in NA CHLORIDE 0.9% 50 ML IV SCH (08:33)
[2021-07-10 08:57] VITALS: O2SAT 99
[2021-07-10] MEDS ORDERED: NA CHLORIDE 0.9% 500 ML IV ONE (09:00)
[2021-07-10] MEDS ORDERED: NOREPINEPHRINE 4 MG in D5W 250 ML IV SCH (09:00)
[2021-07-10] MEDS ORDERED: NA CHLORIDE 0.9% 500 ML ONE (09:01)
[2021-07-10] MEDS ORDERED: ADENOSINE 6 MG/ 2ML VIAL IV ONE ×3 (09:30→09:38)
[2021-07-10] MEDS ORDERED: METOPROLOL TARTRATE 5 MG/5 ML INJ IV STA ×2 (09:32→09:42)
[2021-07-10] MEDS ORDERED: METOPROLOL TARTRATE 5 MG/5 ML INJ IV ONE (09:38)
[2021-07-10 09:48] LABS: Protime INR 1.41
[2021-07-10] MEDS ORDERED: AMIODARONE HCL 150 MG in D5W 100 ML IV STA ×2 (09:57→10:03)
[2021-07-10 09:58] LABS: Arterial Blood Carboxyhemoglob 1.5 % (0-1.5); Blood Gas Oxyhemoglobin 92.7 % (94-97)
[2021-07-10] MEDS ORDERED: TBO-FILGRASTIM 480 MCG/0.8 ML SYR SQ SCH (10:00)
[2021-07-10] MEDS ORDERED: METHYLPREDNISOLONE 125 MG INJ IV ONE (10:00)
[2021-07-10] MEDS ORDERED: DIPHENHYDRAMINE 50 MG/ML VIAL ONE (10:04)
--- NOTE | 2021-07-10 10:59 | P.PN ---
Subjective Date of Service: 07/10/21 Chief Complaint: Respiratory failure Patient's condition has deteriorated has become increasingly agitated is now on BiPAP severe pancytopenia Review of Systems is unable to be obtained Physical Examination - Vital Signs Temperature: 99.0 F Blood Pressure: 133/111 Pulse: 170 Respirations: 22 Pulse Ox (%): 100 - Physical Exam General: Moderate distress Cardiovascular: No edema, Regular rate/rhythm, Normal S1 S2, Edema Assessment & Plan - Problems (Diagnosis) (1) COPD exacerbation Current Visit: Yes Status: Acute Plan: Patient is 76 years of age admitted with respiratory distress condition is worsened currently on BiPAP severely pancytopenic urine culture positive for E. coli blood cultures negative liver function tests have gotten worse kidney function is normal patient developed atrial fibrillation amiodarone drip has been started receiving platelet transfusions chest x-ray shows some haziness on the right side consider Dobbhoff tube with tube feedings DC meropenem changed to Rocephin on 40% FiO2
[2021-07-10] MEDS ORDERED: CEFTRIAXONE 1,000 MG in NA CHLORIDE 0.9% 50 ML IVPB SCH (12:00)
[2021-07-10] MEDS: MICAFUNGIN SODIUM 100 MG in NA CHLORIDE 0.9% 100 ML IV SCH (13:00)
[2021-07-10] MEDS: VANCOMYCIN 1.5 GM in NA CHLORIDE 0.9% 500 ML IVPB SCH ×3 (13:37)
[2021-07-10] MEDS ORDERED: D5W 1,000 ML with POTASSIUM CL 20 MEQ IV SCH ×2 (15:00)
--- NOTE | 2021-07-10 15:27 | P.DS ---
Admission Date: 07/05/21 Discharge Date: 07/10/21 Disposition: [facility] Discharge Condition: SERIOUS Reason for Admission: Respiratory failure Consultations: Oncology - Dr. Modesto MAGANA - Dr. Rodriguez Pulmonology - Dr. Evans Nephrology - Dr. Early Procedures: CXR (07/05): FINDINGS: Bilateral calcified pleural plaques. Very small bilateral pleural effusions Lungs appear clear of acute infiltrate. Heart is mildly enlarged. Mediastinal and hilar lymphadenopathy again demonstrated MRI abdomen (07/06): FINDINGS: Liver is upper normal in size. Inferior right lobe extends to the level of the right kidney. This matches prior study of October 2020. No portal vein abnormality seen. No abnormal liver capsule nodularity. In the posterior sub capsule segment VII (series 3, image 6) there is a 12 millimeter rounded mass. In the central right lobe segment II 8 (series 3, image 12) there is a 19 millimeter oval mass. An adjacent 11 millimeter oval mass is present as well. These masses show homogeneous hyperintense T2 signal. These liver lesions are more difficult to identify on Ambler T1 weighted imaging. On postcontrast imaging the larger of the lesions shows a peripheral nodular enhancement pattern. This fills an essentially on subsequent imaging and persists on the 20 minutes delayed sequence. The adjacent smaller 10 mm lesion fills and rapidly and also persists as a hyperintense focus on the delayed sequence. Similar persistent enhancement signal seen on the upper right lobe subcapsular lesion. Some of the greater signal intensity relative to background liver signal intensity is due to fatty infiltration of the liver. No other significant mass lesion of the liver identified. These are believed to be the correlates to the ultrasound study. Hemangioma is believed to be the most likely etiology. The masses are not clearly different in size compared to the prior imaging studies. Due to differences in modality, measurements very slightly from 1 exam to the next. The CT study has a slightly smaller diameter for the dominant mass. On CT imaging the margins are not sharply demarcated. True interval growth is not suspected. Bilateral pleural effusions are present. The pancreas, spleen, kidneys and adrenal glands show no suspicious findings. No adrenal abnormality. Lower pole right renal cyst is present. Gallbladder is absent. No biliary tree dilatation. No gross bowel abnormality. No ascites or bulky lymphadenopathy. IMPRESSION: Small rounded or oval liver lesions are present as correlates to the prior ultrasound and CT studies. Hemangioma is believed to be the most likely etiology. Malignancy is felt to be unlikely. No history of underlying malignant process detailed. These presumed hemangiomas have shown some variability in size measurements across the 3 different imaging modalities available for correlation. True interval growth is not suspected. Slight variability can occurr due to imaging plane and image selection for measurement, measurement technique and even variability in demarcation of margins between different modalities. CT head (07/03): FINDINGS: No intracranial hemorrhage, mass, edema or shift of mid-line structures. No acute cortical infarction. No cortical edema or sulcal effacement. Atrophy and chronic ischemic changes are present, relatively mild for age, and not significantly different from November comparison study. No abnormal extra-axial fluid collections. Ventricles are normal. Arterial and physiologic calcifications are present. Mastoid air cells and visualized portions of the paranasal sinuses are clear. No acute bony findings. IMPRESSION: Negative non-contrast CT head examination for acute finding. No significant change from the November 2020 study. CXR (07/06): IMPRESSION: No new mass or consolidation. Prominent interstitial pattern matches comparison could indicate interstitial edema or infiltrate. Overall, chest is not substantially different from prior day imaging. CTA chest (06/18): FINDINGS: There is satisfactory visualization and contrast opacification of pulmonary arteries. No definite intra-arterial filling defects are identified to suggest acute or chronic pulmonary embolism. The thoracic aorta is normal in caliber and contour without evidence of aneurysm or dissection. The lungs are well-expanded. There are increasing bilateral pleural effusions which are small to moderate in size bilaterally. Again demonstrated are scattered parenchymal cysts throughout both lungs with greatest involvement of the lower lobes. There is mild bibasilar compressive atelectasis. Also noted are calcified and noncalcified bilateral pleural plaques commonly seen with prior asbestos exposure. The heart is normal in size. There is no pericardial effusion. There is no reflux of contrast into the hepatic veins to suggest right heart strain.The RV/LV ratio is within normal limits. There is persistent hilar, mediastinal and axillary lymphadenopathy. There is infiltration of the fat within the right axilla which may be related to inflammation and/or recent intervention. There are inflammatory changes extending along the right lateral chest wall and along the right lateral abdominal wall. There has been an interval increase in number of enlarged lymph nodes in the right axilla. The largest measures approximately 2.1 x 1.6 cm in cross-sectional diameter (series 404, image 60). There has been an interval increase in size of the lymph nodes in the left axilla. The hilar and mediastinal lymphadenopathy also appears slightly more prominent since the previous examination. No acute osseous abnormality is identified. There is mild degenerative spondylosis throughout the thoracic spine. There is a subcutaneous soft tissue mass posterior to the thoracic spine at the level of T9-T10 to the left of midline measuring approximately 4.5 x 1.5 x 4.4 cm. There are additional poorly defined areas of subcutaneous soft tissue thickening along the left posterior chest wall posterior and inferior to the scapula. These areas are similar when compared to the prior study. Findings may be due to an infectious, inflammatory or neoplastic process. The visualized portions of the upper abdomen reveal evidence of prior cholecystectomy. There is retroperitoneal lymphadenopathy. IMPRESSION: 1. No evidence of acute or chronic pulmonary embolism, thoracic aortic aneurysm or thoracic aortic dissection. 2. Increasing pleural effusions which are small to moderate in size bilaterally. There is mild bibasilar compressive atelectasis. Findings may be due to pulmonary edema. Scattered parenchymal cysts are again noted particularly in the lower lobe regions. 3. Worsening hilar, mediastinal and axillary lymphadenopathy, particularly in the right axillary region. There is also retrocrural lymphadenopathy in the upper abdomen. 4. Subcutaneous soft tissue mass posterior to the thoracic spine at the level of T9-T10 to the left of midline measuring up to 4.5 cm in diameter. There are additional poorly defined areas of subcutaneous soft tissue thickening along the left posterior chest wall posterior and inferior to the scapula. These areas are similar when compared to the prior study. Findings may be due to an infectious, inflammatory or neoplastic process. 5. New inflammatory changes extending along the right lateral chest wall and along the right lateral abdominal wall. 6. Chronic pleural plaques which are commonly seen with prior asbestos exposure. CXR (07/09): IMPRESSION: Minimal improvement in the diffuse bilateral pulmonary opacities which represent pulmonary edema or pneumonia CXR (07/10): IMPRESSION: Worsened aeration of the right lung base could be secondary to either patient rotation or increased pleural effusion on a background of widespread bilateral airspace disease. Small left effusion again noted. Problem List Pancytopenia, with severe thrombocytopenia Neutropenic fever, with sepsis UTI secondary to E. coli Acute hypoxemic respiratory failure secondary to moderate bilateral pleural effusions, concerning for TRALI, possibly TACO (transfusion associated circulatory overload) BIA secondary to prerenal state and hypotension / ischemic AT, possible acyclovir induced nephrotoxicity SVT, intermittent short runs of A. fib AML, on chemotherapy Epistaxis, resolved Chronic COPD Hypertension Chronic back pain BPH Brief History of Present Illness: 76-year-old man with a history of AML currently undergoing chemotherapy was referred to the emergency department due to pancytopenia with a platelet count of 0.5 and anemia with a hemoglobin of 5. Patient is complaining of shortness of breath. He also reports experiencing epistaxis. His oncologist Dr. Armendariz recommended to transfuse 2 units of platelets and 2 unit PRBC. His platelet count in the ED is 6 and hemoglobin of 6.1. WBC is 0.8 with absolute neutrophil count of 700. Patient denies any fever, denies any cough, denies any nausea vomiting or diarrhea. 2 units of apheresed platelets ordered as well as 2 units of PRBC transfusion. Patient is admitted for further management. Hospital Course: Pancytopenia Patient was initially transfused 2units PRBC and platelets. He had no change in his hemoglobin. He continued to be symptomatic fluid and was subsequently given 2 additional units of PRBCs on 07/06. After which his hemoglobin responded appropriately. Anemia work-up did not reveal any significant hemolysis, and did note minimal/no reticulocyte. Patient's local oncologist assist with chemotherapy was contacted, who assisted in getting contact with patient's oncologist at the [facility]. given patient's complicated medical issues/history, and pancytopenia resistant to multiple transfusions, it was decided to be best if patient was transferred to tertiary care center, the [facility] where his oncologist would be available is consulted. Transfer was delayed due to lack of bed availability. Patient developed from respiratory distress after receiving transfusions. CT revealed worsening bilateral pleural effusions, pulmonary opacities, worsening mediastinal lymphadenopathy. There is concern for TRALI vs TACO. Patient only had trace bilateral lower extremity edema, no significant distention of his pulmonary arteries, no significantly elevated BNP. His respiratory distress was felt to be due to most likely to TRALI. His PO2 on ABG was 55. He was placed on BiPAP, which she tolerated well. He was transferred to the ICU on 07/09. The transfer to the [facility] had to be restarted due to the change in bed placement. Throughout the hospitalization, patient continued to be febrile intermittently, up to 102. He responded to Tylenol. With each febrile episode, patient would become more tachycardic and at times confused. Patient pulled out his IVs multiple times. Patient was noted to go into a very brief episodes of atrial fibrillation at times on telemetry. He did have several episodes of SVT that self resolved after few beats. On 07/03 7 AM, he was in sustained monomorphic/narrow complex SVT, but did not respond to 6 mg adenosine. He was given NS bolus with improvement of his blood pressure, and was able to be given 5 mg IV metoprolol, which is heart rate responded to. He was then started on amiodarone. Febrile on 07/06, work-up so far has been positive for GNR in urine, exam E. coli. Patient empirically changed to meropenem on 07/06, from cefepime. And started on acyclovir and micafungin. Infectious disease was consulted, added vancomycin Earlier in hospitalization, patient reported pain in the posterior head that radiated towards his left ear, but without any ear pain or change in hearing. A CT head was performed and no acute findings. Lumbar MRI was performed to evaluate the previously seen liver lesions, and these were felt to be more consistent with hemangioma than malignancy Patient was transferred to the ICU in the [facility] in [place]. Patient is DNR/DNI. An [id number] DNR was signed with telephone agreement/consent by the patient's daughter. Vital Signs/Physical Exam: Physical exam GEN: confused, pulling at lines but redirectable HEENT: Normal conjunctiva, sclera anicteric CV: Sinus tachycardia 110-120, trace bilateral edema to knees Pulm: tachypnea, mildly labored respiration on BiPAP, diminished breath sounds at bilateral bases with crackles heard throughout ABD: Soft, nontender, nondistended MSK: No joint tenderness Integumentary: No rashes Temp Pulse Resp BP Pulse Ox 97.9 F 93 H 18 104/53 L 98 07/10/21 15:00 07/10/21 15:00 07/10/21 15:00 07/10/21 15:00 07/10/21 15:00 Laboratory Data at Discharge: WBC 0.50 K/uL (4.3-10.9) L* 07/10/21 05:19 Hgb 8.2 g/dL (13.6-17.9) L 07/10/21 05:19 Hct 23.9 % (39.6-49.0) L 07/10/21 05:19 Plt Count Cancelled 07/10/21 07:32 PT 16.3 SECONDS (9.5-12.5) H 07/10/21 09:23 INR 1.41 07/10/21 09:23 Sodium 142 mmol/L (136-145) 07/10/21 05:19 Potassium 3.3 mmol/L (3.5-5.1) L 07/10/21 05:19 BUN 28 mg/dL (7-18) H 07/10/21 05:19 Creatinine 0.60 mg/dL (0.55-1.3) 07/10/21 05:19 Glucose 150 mg/dL (74-106) H 07/10/21 05:19 Phosphorus 2.3 mg/dL (2.5-4.9) L 07/10/21 05:19 Magnesium 2.2 mg/dL (1.8-2.4) 07/10/21 05:19 Total Bilirubin 1.4 mg/dL (0.2-1.0) H 07/10/21 05:19 AST 61 U/L (15-37) H 07/10/21 05:19 ALT 131 U/L (12-78) H 07/10/21 05:19 Alkaline Phosphatase 129 U/L (45-117) H 07/10/21 05:19 Home Medications: Cholecalciferol (Vitamin D3) [Vitamin D3] 2 cap PO DAILY 11/12/20 Folic Acid 1 mg PO DAILY 11/12/20 Omeprazole 1 cap PO DAILY 11/12/20 levoFLOXacin [Levaquin*] 500 mg PO DAILY #7 tab 11/12/20 Acyclovir 400 mg PO BID 03/24/21 Amitriptyline HCl 50 mg PO BEDTIME 03/24/21 Baclofen 10 mg PO TID 03/24/21 Cyanocobalamin [Vitamin B-12*] 1,000 mcg PO DAILY 03/24/21 Finasteride 5 mg PO DAILY 03/24/21 Sildenafil Citrate 100 mg PO PRN 03/24/21 Calcium Carbonate [Tums Regular*] 500 mg PO TID PRN 06/22/21 Furosemide [Lasix] 40 mg PO DAILY #30 tab 06/22/21 Gabapentin [Neurontin*] 400 mg PO TID cap 06/22/21 LIDOCAINE 2% JELLY, 5mL [Xylocaine 2% Jelly*] 5 ml MM QIDP PRN 06/22/21 Lactulose [Cephulac*] 20 gm PO QID PRN 06/22/21 Lisinopril [Zestril] 2.5 mg PO DAILY 06/22/21 Magnesium Oxide [Mag 0X Tab] 400 mg PO DAILY #30 tab 06/22/21 Ondansetron [Ondansetron Odt] 8 mg PO TIDP PRN 06/22/21 Potassium Chloride [Klor-Con M20] 20 meq PO DAILY #30 tab.er.prt 06/22/21 Sennosides 8.6 mg PO BID 06/22/21 Tiotropium [Spiriva Handihaler*] 18 mcg IH DAILY 06/22/21 Venetoclax [Venclexta] 100 mg PO DAILY 06/22/21 Followup: ALLAN LEMUS [Primary Care Provider] - Time spent managing pt's care (in minutes): 50
--- NOTE | 2021-07-10 15:48 | PN ---
Date of Progress Note: 07/10/2021 Subjective: I was asked to evaluate the patient because of SVT episodes. Tried metoprolol as the bl ood pressure improved and he is back now in sinus, doing better. Review of Systems: No chest pain. Minimal shortness of breath is present. No nausea, vomiting, or diarrhea. Physical Examination: Vital Signs: Reviewed. Head and Neck: Pupils are equal, reactive to light. Intact eye movements. No JVD. No lymphadenopa thy. Neck: Supple. Thyroid not enlarged. Lungs: Clear to auscultation bilaterally. There were rhonchi bilaterally. No accessory muscle use or muscle retraction. Heart: Regular rate and rhythm. No extra sounds. Abdomen: Soft, nontender. Bowel sounds positive. No organomegaly. No masses or hernia. No rigidi ty or rebound. Extremities: No edema, clubbing, or cyanosis. Intact pulses. Skin: No rash noted. Neurologic: Alert, awake. No acute focal deficits appreciated. Investigations: The labs were reviewed. His white blood cell count is still 0.5. Assessment And Recommendations: Supraventricular tachycardia, likely due to the acute illness that aylin iqbal is having; however, responded very well to beta-ludin. If blood pressure does not allow the use of beta-ludin, then I will recommend amiodarone very cautiously as the liver enzymes are slightly e levated. If need be to start amiodarone, please monitor liver enzymes very carefully. Thank you for the consult. /ANKUR Voice ID: [id number] Report ID: [id number]
[2021-07-11 00:25] VITALS: BP 89/61; TEMP 98
[2021-07-13 05:55] LABS: Vitamin D 1,25-Dihydroxy Total 37 pg/mL (18-72); Vitamin D,1,25-OH2, D2 <8 pg/mL
== END 2021-07-10 17:30 | disposition short-term general hospital (02) | DRG 871 ==
LOC: ER 11:09 → ERHOLD 15:56 → 2ND 21:04 → ERHOLD 07-09 13:30
PROVIDERS: ADMIT Internal Medicine; ATTEND Internal Medicine
PROC: 30233N1 Transfusion of Nonautologous Red Blood Cells into Peripheral Vein, Percutaneous Approach (ICD-10-PCS; 2021-07-05)
PROC: 30233R1 Transfusion of Nonautologous Platelets into Peripheral Vein, Percutaneous Approach (ICD-10-PCS; 2021-07-06)
PROC: 5A09357 Assistance with Respiratory Ventilation, Less than 24 Consecutive Hours, Continuous Positive Airway Pressure (ICD-10-PCS; principal; 2021-07-09)
DX: A41.9 Sepsis, unspecified organism (principal); D61.810 Antineoplastic chemotherapy induced pancytopenia; N17.0 Acute kidney failure with tubular necrosis; J18.9 Pneumonia, unspecified organism; J96.01 Acute respiratory failure with hypoxia; N39.0 Urinary tract infection, site not specified; E87.3 Alkalosis; C92.00 Acute myeloblastic leukemia, not having achieved remission; J44.1 Chronic obstructive pulmonary disease with (acute) exacerbation; J95.84 Transfusion-related acute lung injury (TRALI); I47.1 Supraventricular tachycardia; B96.20 Unspecified Escherichia coli [E. coli] as the cause of diseases classified elsewhere; N14.1 Nephropathy induced by other drugs, medicaments and biological substances; T37.5X5A Adverse effect of antiviral drugs, initial encounter; R33.9 Retention of urine, unspecified; E83.52 Hypercalcemia; E87.71 Transfusion associated circulatory overload; R04.0 Epistaxis; N40.0 Benign prostatic hyperplasia without lower urinary tract symptoms; E78.5 Hyperlipidemia, unspecified; D69.6 Thrombocytopenia, unspecified; T45.1X5A Adverse effect of antineoplastic and immunosuppressive drugs, initial encounter; I89.0 Lymphedema, not elsewhere classified; M54.9 Dorsalgia, unspecified; D70.9 Neutropenia, unspecified; R50.81 Fever presenting with conditions classified elsewhere; D18.09 Hemangioma of other sites; I48.91 Unspecified atrial fibrillation; R59.0 Localized enlarged lymph nodes; Z91.013 Allergy to seafood; Z20.822 Contact with and (suspected) exposure to COVID-19
CPT/HCPCS: 36415; 36430; 70450; 71045; 71275; 80048; 80053; 80076; 80202; 81003; 81015; 82024; 82306; 82533; 82553; 82570; 82607; 82627; 82652; 82805; 83010; 83615; 83735; 83880; 83935; 83970; 84100; 84132; 84145; 84156; 84300; 84439; 84443; 84484; 85025; 85044; 85384; 85610; 86140; 86664; 86665; 86747; 86850; 86880; 86900; 86901; 86922; 87040; 87077; 87086; 87088; 87186; 87305; 87449; 87497; 87899; 93005; 94640; 94660; 96413; 99211; 99283; J0133; J0153; J0282; J0692; J0894; J1200; J1447; J1630; J1940; J2185; J2248; J2930; J3370; J3480; J3486; J7030; J7040; J7060; P9016; P9035; P9040; P9073; P9100; Q9967; U0003